=== PATIENT | male | born 1945 | race Caucasian/White ===

== ENCOUNTER → 2017-11-10 05:00 | Outpatient (REF) | payer MEDICARE, SELFPAY ==
[2017-10-13 10:51] VITALS: BMI 27.4
[2017-11-10 08:02] LABS: Hematocrit 31.1 % (40-54); Hemoglobin 9.4 g/dl (13.0-16.5); Mean Corp Hgb Conc 30.2 g/gl (32-36); Mean Corpuscular Hgb 23.9 pg (27.0-32.0); Mean Corpuscular Volume 78.9 fL (80-94); Mean Platelet Vol. 9.4 fl (6.2-12.0); Platelet Count 206 K/mm3 (150-450); RBC Distribution Width CV 16.3 % (11.6-14.6); RBC Distribution Width SD 46.7 fl (35.1-43.9); Red Blood Count 3.94 M/mm3 (4.6-6.2); Scan Indicated on CBC? Y/N NO; White Blood Count 7.3 K/mm3 (4.4-11.0)
[2017-11-10 08:12] LABS: Anion Gap 9 (5-15); BUN 33 mg/dL (7-18); BUN/Creat Ratio 19.3 RATIO (10-20); Calcium,Total 8.9 mg/dL (8.5-10.1); Chloride 105 mmol/L (98-107); Creatinine, Serum 1.71 mg/dL (0.70-1.30); EST Glomerular Filtration Rate 42 mL/min (>60); Est Glom Filt Rate - Afr Amer 51 mL/min (>60); Glucose 189 mg/dL (70-110); Potassium 4.4 mmol/L (3.5-5.1); Sodium Level 140 mmol/L (136-145)
== END ==
LOC: OLS.WCC 05:00
PROVIDERS: Visit Provider Family Medicine
DX: I50.9 Heart failure, unspecified (principal); I10 Essential (primary) hypertension; Z79.899 Other long term (current) drug therapy
CPT/HCPCS: 36415; 80048; 85027

== ENCOUNTER → 2017-12-29 05:00 | Outpatient (REF) | payer MEDICARE, SELFPAY ==
[2017-10-13 10:51] VITALS: BMI 27.4
[2017-12-29 08:48] LABS: Hemoglobin 10.3 g/dl (13.0-16.5); Mean Corp Hgb Conc 32.2 g/gl (32-36); Mean Corpuscular Hgb 24.2 pg (27.0-32.0); Mean Corpuscular Volume 75.1 fL (80-94); Mean Platelet Vol. 10.2 fl (6.2-12.0); Platelet Count 198 K/mm3 (150-450); RBC Distribution Width CV 15.7 % (11.6-14.6); RBC Distribution Width SD 41.8 fl (35.1-43.9); Red Blood Count 4.26 M/mm3 (4.6-6.2)
[2017-12-29 08:53] LABS: Anion Gap 10 (5-15); BUN 40 mg/dL (7-18); BUN/Creat Ratio 20.8 RATIO (10-20); Calcium,Total 9.5 mg/dL (8.5-10.1); Chloride 100 mmol/L (98-107); Cholesterol 137 mg/dL (200); Creatinine, Serum 1.92 mg/dL (0.70-1.30); EST Glomerular Filtration Rate 37 mL/min (>60); Est Glom Filt Rate - Afr Amer 44 mL/min (>60); Glucose 260 mg/dL (74-106); High Density Lipoprotein 28 mg/dL; Potassium 4.4 mmol/L (3.5-5.1); Sodium Level 136 mmol/L (136-145); Triglycerides 243 mg/dL; Very Low Density Lipoprotein 49 mg/dL (5-40)
[2017-12-29 08:56] LABS: Scan Indicated on CBC? Y/N NO
[2017-12-29 09:10] LABS: Hemoglobin A1c 8.4 % (4.2-6.3)
== END ==
LOC: OLS.WCC 05:00
PROVIDERS: Visit Provider Family Medicine
DX: I11.0 Hypertensive heart disease with heart failure (principal); I50.9 Heart failure, unspecified; E11.9 Type 2 diabetes mellitus without complications; E78.5 Hyperlipidemia, unspecified; Z79.899 Other long term (current) drug therapy
CPT/HCPCS: 36415; 80048; 80061; 83036; 85027

== ENCOUNTER 2018-01-07 14:30 | Outpatient (RCR) | payer MEDICARE, SELFPAY ==
[2017-10-13 10:51] VITALS: BMI 27.4
--- NOTE | 2017-12-08 10:50 | HP.PTEVAL_ITS ---
Patient's Visit Information Arnel Becker is a 72 year old M referred to Physical Therapy by Out of Town Doctor PAULINA with a diagnosis of CVA /WEAKNESS. Date of Evaluation: 12/08/17 Physical Therapist: Yinka Carvalho PT, - Visit Plan Frequency: 2x /Week Duration: 4 Weeks Plan: progressive balance activities,conditioning ,strength ,BLE strengthening - Subjective Subjective: This 72 y/o male presents to physical therapy with with CVA and weakness. Patient had CVA which affected peripheral vision. CVA Jul 2017. Patient had min deficicits in extremties. Patient currently is living at [facility]. Meals provided Incependant with ADL'S except assist with shower ,dress Indepndant. Denies paratrhesia/tingling. No falls.Living situation one level.No inpatient Rehab. Patient also has ho of CVA. SOCAIL: single. VOCATION: retired. HOME SITUATION: assisted living - Objective POSTURE: mild foward pposturwe. GAIT: receprocal pattern slow cadance miold unsteady. NEURO: reflexes achilles,patella tendon1/3. DYNAMIC BALANCE: good-. MMT: quad/hams/hip flexion/abductiion 4-/5/ankle 4/5. FLEXABLITY: hams min tight. SLS- min assist. STAIRS: ascend/descend 12 steps with rails one step at a time - Balance Scores Functional Gait Assessment Score: 17 % Disability: 43.3400 CATSIB Score (Max score 120 seconds): 60 - Goals Goal 1:: Independant with HEP Goal Time Frame: 4-6 Weeks Goal 2:: Improve BLE strength 4/5 to improve function and stairs Goal Time Frame: 4-6 Weeks Goal 3:: Patient improve dynamic balance to good. Goal Time Frame: 4-6 Weeks Goal 4:: Patient improve functional gait assessment score to 20 . Goal Time Frame: 4-6 Weeks Goal 5:: Patient to improve CATSIB score to 80 Goal Time Frame: 4-6 Weeks - Rehabilitation Potential Physical Therapy Diagnosis: This patient had CVA with impairments with weakness and decrease balane along with decrease endurance with activity ADL'S thus benifit from skilled PT Rehabilitation Potential: Good - Anticipated Interventions Patient/Client Instruction: Educate patient on: Condition, Plan of Care For the Purpose of:: To decrease pain, To improve muscle performance and motor function, To improve ability to perform ADL's, To increase tolerance to activity /condition/position, To improve ability of physical actions for home/community/ work/leisure, To improve gait and locomotor functions, To improve endurance, To improve balance, To improve safety with gait, To improve ability to perform tasks related to life management Therapeutic Exercise to Include: Strength training, Endurance training, Balance training, Coordination, Gait and locomotor training For the Purpose of:: To improve muscle performance and motor function, To improve ability to perform ADL's, To increase tolerance to activity/condition/ position, To improve performance and independence with ADL's, To improve ability of physical actions for home/community/work/leisure, To improve gait and locomotor functions, To improve endurance, To improve balance, To improve safety with gait, To improve ability to perform tasks related to life management Thank you for the opportunity to evaluate your patient. For Medicare and Medicare HMO plans, please review the plan of care and approve it. It will need to be FAXED BACK to us at [phone] for Medicare purposes. Please let me know if there are questions or concerns regarding this plan of care. Physician Signature: Date:
--- NOTE | 2018-01-07 14:58 | HP.PTDCSUM ---
HP - PT D/C Summary It has been my pleasure to treat Arnel Becker under orders from PAULINA Jackson for the diagnosis of CVA /WEAKNESS for a total of 7 visit(s). Discharge Date: 01/07/18 Please see the following information for a summary of their discharge status. - Subjective Subjective: Patient has fallen.Doing better overall. - Overall Improvement % Improvement: 50 - Objective Objective/Function: POSTURE: mild foward posture. GAIT: reciprocal pattern mild foward posture. MMT: QUADS/HAMS /HIP /ANKLE 4/5. BALANCE: good- - Goals Goal 1:: Independant with HEP Goal Progress: Goal Met Goal 2:: Improve BLE strength 4/5 to improve function and stairs Goal Progress: Progressing Goal 3:: Patient improve dynamic balance to good. Goal Progress: Goal Met Goal 4:: Patient improve functional gait assessment score to 20 . Goal 5:: Patient to improve CATSIB score to 80 Goal Progress: Goal Met - Plan Plan: D/C - D/C Information If there are questions or concerns regarding this patient's physical therapy, please feel free to call me at [phone]. Thank you for the referral of this patient. Sincerely, Yinka Carvalho, PT,
== END 2018-01-07 19:00 | disposition home or self-care (01) ==
LOC: PT 14:30
PROVIDERS: Family Provider Family Medicine; PCP Family Medicine; Visit Provider Family Medicine
DX: Z86.73 Personal history of transient ischemic attack (TIA), and cerebral infarction without residual deficits (principal); R53.1 Weakness
CPT/HCPCS: 97110; 97162; 97530

== ENCOUNTER → 2018-01-26 04:00 | Outpatient (REF) | payer MEDICARE, SELFPAY ==
[2017-10-13 10:51] VITALS: BMI 27.4
[2018-01-26 08:24] LABS: Hematocrit 33.2 % (40-54); Hemoglobin 10.3 g/dl (13.0-16.5); Mean Corpuscular Hgb 23.7 pg (27.0-32.0); Mean Corpuscular Volume 76.5 fL (80-94); Mean Platelet Vol. 9.5 fl (6.2-12.0); Platelet Count 166 K/mm3 (150-450); RBC Distribution Width CV 16.1 % (11.6-14.6); Red Blood Count 4.34 M/mm3 (4.6-6.2); White Blood Count 4.6 K/mm3 (4.4-11.0)
[2018-01-26 08:27] LABS: Scan Indicated on CBC? Y/N NO
[2018-01-26 08:45] LABS: Anion Gap 9 (5-15); BUN 48 mg/dL (7-18); BUN/Creat Ratio 21.3 RATIO (10-20); Calcium,Total 9.4 mg/dL (8.5-10.1); Chloride 103 mmol/L (98-107); Creatinine, Serum 2.25 mg/dL (0.70-1.30); EST Glomerular Filtration Rate 31 mL/min (>60); Est Glom Filt Rate - Afr Amer 37 mL/min (>60); Glucose 382 mg/dL (74-106); Potassium 5.1 mmol/L (3.5-5.1); Sodium Level 140 mmol/L (136-145)
== END ==
LOC: OLS.WCC 04:00
PROVIDERS: Visit Provider Family Medicine
DX: I50.9 Heart failure, unspecified (principal); E11.9 Type 2 diabetes mellitus without complications; Z79.899 Other long term (current) drug therapy
CPT/HCPCS: 36415; 80048; 85027

== ENCOUNTER → 2018-02-23 05:00 | Outpatient (REF) | payer MEDICARE, SELFPAY ==
[2017-10-13 10:51] VITALS: BMI 27.4
[2018-02-23 10:02] LABS: Mean Corp Hgb Conc 32.3 g/gl (32-36); Mean Corpuscular Hgb 25.1 pg (27.0-32.0); Mean Corpuscular Volume 77.9 fL (80-94); Mean Platelet Vol. 10.4 fl (6.2-12.0); Platelet Count 158 K/mm3 (150-450); RBC Distribution Width CV 15.7 % (11.6-14.6); RBC Distribution Width SD 42.6 fl (35.1-43.9); Red Blood Count 3.98 M/mm3 (4.6-6.2); White Blood Count 5.3 K/mm3 (4.4-11.0)
[2018-02-23 10:07] LABS: Scan Indicated on CBC? Y/N NO
[2018-02-23 10:12] LABS: Anion Gap 8 (5-15); BUN 53 mg/dL (7-18); BUN/Creat Ratio 23.6 RATIO (10-20); Calcium,Total 9.2 mg/dL (8.5-10.1); Chloride 103 mmol/L (98-107); Creatinine, Serum 2.25 mg/dL (0.70-1.30); EST Glomerular Filtration Rate 31 mL/min (>60); Est Glom Filt Rate - Afr Amer 37 mL/min (>60); Glucose 225 mg/dL (74-106); Sodium Level 139 mmol/L (136-145)
== END ==
LOC: OLS.WCC 05:00
PROVIDERS: Visit Provider Family Medicine
DX: D64.9 Anemia, unspecified (principal); I10 Essential (primary) hypertension; Z79.899 Other long term (current) drug therapy
CPT/HCPCS: 36415; 80048; 85027

== ENCOUNTER 2018-03-16 05:56 | Inpatient (IN) | payer MEDICARE, SELFPAY ==
[2017-10-13 10:51] VITALS: BMI 27.4
[2018-03-16] VITALS (46 sets, daily range): BP systolic 123–211; BP diastolic 64–98; PULSE 58–104; RESP 10–37; TEMP 36.3–36.8; O2SAT 74–100; BMI 29.0; BMI 29.1
--- NOTE | 2018-03-16 06:12 | RAD_ITS ---
STUDY: X-RAY CHEST REASON FOR EXAM: Male, 72 years old. Shortness of breath TECHNIQUE: 1 view COMPARISON: October 22, 2017 FINDINGS: Interval development of consolidative processes in the right upper lobe, right lower lobe and the left lower lobe. Median sternotomy wires are in place and there is evidence of CABG mild cardiomegaly Normal visualized thoracic spine. Normal visualized ribs, clavicles, and shoulders. There is no demonstrated abnormality of the visualized soft tissue structures of the upper abdomen. RAD/Chest 1 View (Portable) IMPRESSION: Bilateral pneumonias Electronically Signed: Kishan Dias, at 6:37 EDT Tel , Service support ,
--- NOTE | 2018-03-16 06:14 | EKG12_ITS ---
Test Reason : REPEAT Blood Pressure : / mmHG Vent. Rate : 090 BPM Atrial Rate : 090 BPM P-R Int : 212 ms QRS Dur : 108 ms QT Int : 408 ms P-R-T Axes : 036 037 113 degrees QTc Int : 499 ms Sinus rhythm with 1st degree A-V block Septal infarct , age undetermined ST/T wave abnormality: consider myocardial ischemia Abnormal ECG Confirmed by DA ZAPATA, THANIA ([id number]), communications editor KYRA TYLER ([id number]) on 03/19/2018 12:59:02 PM Referred By: JOELLE Confirmed By:THANIA ROBERSON MD
--- NOTE | 2018-03-16 06:16 | EKG12_ITS ---
Test Reason : SOB Blood Pressure : / mmHG Vent. Rate : 099 BPM Atrial Rate : 099 BPM P-R Int : 224 ms QRS Dur : 120 ms QT Int : 378 ms P-R-T Axes : 057 036 093 degrees QTc Int : 485 ms Sinus rhythm with 1st degree A-V block with occasional Premature ventricular complexes Septal infarct , age undetermined ST & T wave abnormality, consider lateral ischemia Abnormal ECG Confirmed by ROCIO ZAPATA, LIS ([id number]), video effects editor KYRA TYLER ([id number]) on 03/20/2018 12:59:03 PM Referred By: Confirmed By:LIS CHAN MD
--- NOTE | 2018-03-16 06:27 | CPS ---
decreased fio2 to 60%
[2018-03-16] MEDS: Nitroglycerin Oint 1 INCH PACKET TRANSDERM. (06:35)
[2018-03-16] MEDS: Morphine 4 MG/ML Syringe 2 MG IV (06:36)
[2018-03-16] MEDS: Aspirin 81 MG TAB.CHEW 324 MG PO (06:36)
[2018-03-16] MEDS: Albuterol 2.5 MG/3 ML VIAL.NEB. INHALATION ×3 (06:36→07:07)
[2018-03-16] MEDS: Furosemide 40 MG/4 ML Vial IV (06:36)
[2018-03-16] MEDS: Ipratropium/Albuterol Sulfate 3 ML AMPUL.NEB INHALATION ×3 (06:36→22:55)
[2018-03-16 06:37] LABS: Absolute Lymphocyte Count 1.52 X10^3/ul (0.83-4.51); Absolute Neutrophil Count 8.9 X10^3/uL (2.0-7.7); Basophil# 0.04 X10^3/uL; Basophil% 0.3 % (0-1); Eosinophil# 0.33 X10^3/uL; Eosinophils% 2.8 % (0-5); Hematocrit 32.9 % (40-54); Hemoglobin 10.9 g/dl (13.0-16.5); Lymphocyte # 1.52 X10^3/ul (4.0); Lymphocyte % 12.9 % (19-41); Mean Corp Hgb Conc 33.1 g/gl (32-36); Mean Corpuscular Hgb 26.5 pg (27.0-32.0); Mean Corpuscular Volume 79.9 fL (80-94); Mean Platelet Vol. 9.9 fl (6.2-12.0); Monocyte# 0.97 X10^3/uL; Monocyte% 8.2 % (0-10); Neutrophil % 75.5 % (47-70); Platelet Count 219 K/mm3 (150-450); RBC Distribution Width CV 16.2 % (11.6-14.6); RBC Distribution Width SD 46.1 fl (35.1-43.9); Red Blood Count 4.12 M/mm3 (4.6-6.2); White Blood Count 11.8 K/mm3 (4.4-11.0)
[2018-03-16 06:44] LABS: POSITIVE COUNT NO; POSITIVE DIFFERENTIAL NO; POSITIVE MORPHOLOGY NO
[2018-03-16 06:48] LABS: Anion Gap 9 (5-15); BUN 66 mg/dL (7-18); BUN/Creat Ratio 25.3 RATIO (10-20); Calcium,Total 9.1 mg/dL (8.5-10.1); Chloride 102 mmol/L (98-107); Creatinine, Serum 2.61 mg/dL (0.70-1.30); EST Glomerular Filtration Rate 26 mL/min (>60); Est Glom Filt Rate - Afr Amer 31 mL/min (>60); Estimated Creatinine Clearance 24.39 ml/min; Glucose 338 mg/dL (74-106); Potassium 4.5 mmol/L (3.5-5.1); Sodium Level 137 mmol/L (136-145)
--- NOTE | 2018-03-16 06:54 | ED.VISSUMM ---
- ER Visit Summary Date of Service: 03/16/18 Chief Complaint: [] Numbness of breath History of Present Illness: The patient is a 72 M [] complaining of shortness of breath that awoke him from sleep 2 hours prior to arrival. Patient presented with a pulse ox of 74% on room air which improved to the mid 80s on nonrebreather. Patient was in respiratory distress. Patient was immediately placed on BiPAP which improved his pulse ox to the low 90s. He is unable to provide significant history secondary to his acute presentation. Physical Examination: [] Afebrile. Pulse oximetry upon arrival was mid 70s. On BiPAP low 90s. Tachycardic in the 100 range. BP over 200 systolic upon arrival. 72-year-old male in moderate respiratory distress. Cardiovascular exam was tachycardic. Pulmonary exam revealed diminished breath sounds at the bases with slight expiratory wheeze. Abdomen is soft and nontender. No significant lower extremity edema. Test Results: [] CBC normal, BMP reveals BUN and creatinine of 66 and 2.61, respectively. Troponin indeterminate 0.11. BNP pending at the time of this dictation. Chest x-ray reveals bilateral infiltrates right greater than left. EKG shows ST depression in leads I, aVL and leads V5 and V6. With a rate of 90. First-degree heart block. Emergency Department Course and Treatment: [] Patient immediately evaluated and placed on BiPAP for respiratory distress with a pulse ox in the mid 70s. Chest x-ray reveals bilateral infiltrates. Patient was started on vancomycin and Zosyn intravenously. Blood cultures obtained and pending. EKG reveals slight ST depression in leads I, aVL and leads V5 and V6. Case discussed with hospitalist and technical services consultant and patient will be admitted to the ICU. Treatment Plan: [] Admit to ICU for intravenous antibiotics and respiratory support on BiPAP. Disposition: [] Admit, ICU, critical. Impression: [] Bilateral pulmonary infiltrates consistent with healthcare associated pneumonia Respiratory failure on BiPAP EKG changes Critical CARE time: 45 minutes This note was generated with ScriptRxation software. It may contain incorrect words, spelling, and punctuation that were not noted in review of the chart prior to signing ED Disposition - Plan for ED Patient: Chief Complaint: Shortness of Breath Referrals: Link Soriano MD [Primary Care Provider] -
--- NOTE | 2018-03-16 06:55 | PCM.HP.STD ---
Problem List (1) Acute kidney injury Status: Acute (2) Chronic kidney disease Status: Chronic Qualifiers: Chronic kidney disease stage: stage 3 (moderate) Qualified Code(s): N18.3 - Chronic kidney disease, stage 3 (moderate) (3) Alzheimer's disease Status: Chronic Qualifiers: Alzheimer's disease onset: unspecified onset Dementia behavioral disturbance: with behavioral disturbance Qualified Code(s): G30.9 - Alzheimer's disease, unspecified; F02.81 - Dementia in other diseases classified elsewhere with behavioral disturbance (4) Diabetes mellitus Status: Chronic Qualifiers: Diabetes mellitus type: type 2 Diabetes mellitus mcfp insulin use: with control integration engineer use Diabetes mellitus complication status: with unspecified complications Qualified Code(s): E11.8 - Type 2 diabetes mellitus with unspecified complications; Z79.4 - windows technical specialist (current) use of insulin (5) Encephalopathy Status: Acute (6) Hospital-acquired pneumonia Status: Acute (7) Ischemic cardiomyopathy Status: Chronic Comment: EF is 40% (8) Acute hypoxemic respiratory failure Status: Acute (9) H/O carotid endarterectomy Status: Chronic Comment: August 2017 [facility] (10) Esophageal reflux Status: Chronic Qualifiers: Esophagitis presence: esophagitis presence not specified Qualified Code(s): K21.9 - Gastro-esophageal reflux disease without esophagitis (11) HLD (hyperlipidemia) Status: Chronic Qualifiers: Hyperlipidemia type: unspecified Qualified Code(s): E78.5 - Hyperlipidemia, unspecified (12) HTN (hypertension) Status: Chronic Qualifiers: Hypertension type: essential hypertension Qualified Code(s): I10 - Essential (primary) hypertension (13) Coronary artery disease Status: Chronic Qualifiers: Coronary Disease-Associated Artery/Lesion type: unspecified vessel or lesion type [place] vs. transplanted heart: unspecified whether [place] or transplanted heart Associated angina: angina presence unspecified Qualified Code(s): I25.10 - Atherosclerotic heart disease of [place] coronary artery without angina pectoris Comment: status post CABG (14) H/O coronary artery bypass surgery Status: Chronic (15) Obstructive sleep apnea Status: Chronic Comment: Noncompliant with CPAP (16) CVA (cerebral vascular accident) Status: Chronic Qualifiers: CVA mechanism: unspecified Qualified Code(s): I63.9 - Cerebral infarction, unspecified (17) BPH (benign prostatic hypertrophy) Status: Chronic Qualifiers: Lower urinary tract symptom presence: unspecified whether lower urinary tract symptoms present Qualified Code(s): N40.0 - Benign prostatic hyperplasia without lower urinary tract symptoms (18) Iron deficiency anemia Status: Chronic Qualifiers: Iron deficiency anemia type: unspecified iron deficiency Qualified Code(s): D50.9 - Iron deficiency anemia, unspecified History of Present Illness Date of Admission: 03/16/18 Chief Complaint: Sent from [facility] for dyspnea x 2 hours, woke from sleep. The patient is a 72 y/o M w/ PMHx: Fe Deficiency Anemia, Hx GI Bleed w/ PUD, CKD stage III, Diabetes mellitus type II, Obesity, MAGDI non-compliant with CPAP, CAD s/p CABG and PCI (last 2015 [facility]) and [place], Chronic systolic CHF w/ Ischemic Cardiomyopathy (EF 40%), HTN, HLD, Alzheimer's disease, Carotid disease s/p CEA hx, BPH who presents to the [facility] ED on 03/16/18 with respiratory distress starting ~ 2 hours prior to presentation, noted to have awoken him from sleep with 74% oxygenation noted per EMS. Upon ED presentation patient immediately placed on BIPAP. Following improvement patient admitted to ongoing dyspnea for 2 days with cough, not mildly productive, no fevers or chills. He denies any recent increased weight gain or lower extremity edema in the ED work-up included T 97.3, HR 85, BP 197/84, RR 24, placed on BIPAP, 97% on 50%, CBC w/ WBC 11.8, Hgb 10.9, Plts 219 with L shift, BMP w/ BUN/Cr5 66/2.61, glucose 338, trop 0.11, CXR w/ BL infiltrates, R>L. BNP pending. Bld Cx x 2 obtained in the ED. In the ED patient administered vanc, zosyn, morphine, lasix 40 mg IV x 1, ASA, duoneb. Past Medical History Past Medical History (Chronic Problems): Chronic Problems Iron deficiency anemia (Chronic) Chronic kidney disease (Chronic) Alzheimer's disease (Chronic) Diabetes mellitus (Chronic) Ischemic cardiomyopathy (Chronic) EF is 40% Uncontrolled type 2 diabetes mellitus (Chronic) Coronary artery disease (Chronic) Peptic ulcer disease (Chronic) NSTEMI (non-ST elevated myocardial infarction) (Chronic) H/O carotid endarterectomy (Chronic) August 2017 [facility] Chronic hemorrhagic anemia (Chronic) Acute systolic CHF (congestive heart failure) (Chronic) Stage III chronic kidney disease (Chronic) Esophageal reflux (Chronic) HLD (hyperlipidemia) (Chronic) HTN (hypertension) (Chronic) Coronary artery disease (Chronic) status post CABG H/O coronary artery bypass surgery (Chronic) Obstructive sleep apnea (Chronic) Noncompliant with CPAP CVA (cerebral vascular accident) (Chronic) BPH (benign prostatic hypertrophy) (Chronic) History of PTCA (Chronic) last PTCA was in July 2016 at [facility] main [place] Allergies hydrocodone bitartrate [From Vicodin] Allergy (Verified 03/16/18 06:11) Anaphylaxis hydralazine Adverse Reaction (Verified 03/16/18 06:11) Shortness of breath Home Medications: Ambulatory Orders Medication Instructions Recorded Acetaminophen 2 tab PO Q8H PRN 03/16/18 Amlodipine Besylate [Norvasc] 5 mg PO DAILY 03/16/18 Aspirin [Aspirin, Baby] 81 mg PO DAILY@0800 03/16/18 Atorvastatin Calcium [Lipitor] 40 mg PO QHS 03/16/18 Carvedilol [Coreg] 6.25 mg PO BID 03/16/18 Clopidogrel Bisulfate [Clopidogrel] 75 mg PO DAILY 03/16/18 Donepezil HCl [Aricept] 5 mg PO QHS 03/16/18 Furosemide [Lasix] 40 mg PO BID 03/16/18 Insulin Detemir [Levemir] 40 unit SQ BID 03/16/18 Insulin Lispro [Humalog] 16 unit SQ TIDCM 03/16/18 Iron Polysaccharide Complex 150 mg PO TIDCM 03/16/18 [Ferrex 150] Isosorbide Mononitrate [Isosorbide 30 mg PO DAILY 03/16/18 Mononitrate ER] Magnesium Oxide [Mag-Ox 400] 400 mg PO DAILY 03/16/18 Nitroglycerin [Nitrostat] 0.4 mg SUBLINGUAL Q5M PRN 03/16/18 [place]-3 Acid Ethyl Esters 2 cap PO BID 03/16/18 Pantoprazole Sodium [Protonix] 40 mg PO DAILY 03/16/18 Polyethylene Glycol 3350 [Miralax] 17 gm PO DAILY 03/16/18 Senna/Docusate Sodium [Senokot-S, 1 tablet PO BID 03/16/18 Debbie-Colace] Surgical History: coronary bypass surgery, - - Back surgery. Carotid endarterectomy 06/2017. Psychiatric History: No pertinent psych hx Lives: [facility] Smoking Status: Former smoker Tobacco Use: Non-smoker Alcohol: None Drugs: None - *Family History Sibling History Items: Diabetes, Heart Disease Maternal History Items: Dementia, No pertinent history, - - His mother in her 70s of a stroke Paternal History Items: Dementia, Heart Disease - His father at the age of 56 of a myocardial infarction Review of Systems Constitutional: Reports: Malaise, Weakness, Fatigue. Denies: Chills, Fever, Weight Change HEENT: Denies: Head Aches, Sinus Congestion, Sinus Drainage Cardiovascular: Denies: Chest Pain, Palpitations Respiratory: Reports: Cough, Shortness of Breath, Shortness of breath at rest, Shortness of breath upon exertion. Denies: Sputum production, Wheezing Gastrointestinal: Denies: Abdominal Pain, Nausea, Vomiting Genitourinary: Denies: Dysuria Musculoskeletal: Denies: Joint Pain, Joint Tenderness Skin: Reports: Skin Changes. Denies: Rash, Wounds Neurological: Denies: Numbness, Tingling, Focal weakness Psychiatric: Denies: Anxiety, Depression, Homicidal Ideations, Suicidal Ideations Hematologic/ Lymphatic: Reports: Anemia, Easy Bruising, Easy Bleeding VTE Information - Inpt Only VTE Present on Admission: No VTE Mechan Device Prophylaxis: SCD's VTE Pharm Prophylaxis ordered?: Yes Subjective: Seated upright in the ED bed, fatigued appearance, notes feeling improved since initial presentation, more alert. Objective: Physical Examination: General: awake, alert now following BIPAP placement, oriented to self, place, recent events, cooperative, seated upright in the ED bed, improved, BIPAP in place, able to talk. Skin: normal color, turgor, no icterus, cyanosis. HEENT: AT/NC, EOMI, PERRLA, dry MM, no carotid bruits or JVD noted. Lungs: Severely diminished BS BL, > bases, >R<L, BIPAP in place, able to talk some, still some accessory muscle usage, improving, no wheezing, no crackles or rales. Heart: Regular rate and rhythm; no gallop, rub audible. Abdomen: soft, obese, NTTP, ND, normal BS, no HSM. Extremities: no cyanosis, clubbing, no marked LE edema. Neurological: awake, alert now following BIPAP placement, oriented to self, place, recent events, cooperative, seated upright in the ED bed, improved, BIPAP in place, able to talk, pupils equally reactive to light and accomodation; cranial nerves II-XII grossly normal, moving all 4 extremities but strength severely globally decreased secondary to acute presentation. Psychiatric: affect appears fatigued, flat, no acute evidence of depressive or anxiety feelings. - Physical Exam Vital Signs Temp Pulse Resp BP Pulse Ox 97.3 F L 95 31 H 197/84 H 95 03/16/18 05:59 03/16/18 06:35 03/16/18 06:10 03/16/18 06:35 03/16/18 06:26 Oxygen Flow Rate (L/min) 15 Oxygen Delivery Method Bi-pap Weight: 197 lb 12.074 oz Body Mass Index (BMI) 30.0 Finger Stick Blood Glucose 500 Laboratory Tests Past 24 Hrs 03/16/18 03/16/18 03/16/18 06:22 06:22 06:22 WBC 11.8 H RBC 4.12 L Hgb 10.9 L Hct 32.9 L MCV 79.9 L MCH 26.5 L MCHC 33.1 RDW 16.2 H RDW Differential 46.1 H Plt Count 219 MPV 9.9 Immature Gran % (Auto) 0.300 Neut % (Auto) 75.5 H Lymph % (Auto) 12.9 L [place] % (Auto) 8.2 Eos % (Auto) 2.8 Baso % (Auto) 0.3 Absolute Neuts (auto) 8.9 H Absolute Lymphs (auto) 1.52 Total Counted Not Reportable Sodium 137 Potassium 4.5 Chloride 102 Carbon Dioxide 26.0 Anion Gap 9 BUN 66 H Creatinine 2.61 H Estim Creat Clear Calc 24.39 Est GFR (MDRD) Af Amer 31 L Est GFR (MDRD) Non-Af 26 L BUN/Creatinine Ratio 25.3 H Glucose 338 H Calcium 9.1 Troponin I 0.11 H B-Natriuretic Peptide Pending Assessment/Plan The patient is a 72 y/o M w/ PMHx: Fe Deficiency Anemia, Hx GI Bleed w/ PUD, CKD stage III, Diabetes mellitus type II, Obesity, MAGDI non-compliant with CPAP, CAD s/p CABG and PCI (last 2016 [facility]) and [place], Chronic systolic CHF w/ Ischemic Cardiomyopathy (EF 40%), HTN, HLD, Alzheimer's disease, Carotid disease s/p CEA hx, BPH who presents to the [facility] ED on 03/16/18 with acutely worsened respiratory distress starting ~ 2 hours prior to presentation, noted to have awoken him from sleep with 74% oxygenation noted per EMS, with 2 day history of dyspnea, cough. (1) Acute Hypoxic Respiratory Failure secondary to HCAP Pneumonia: CXR in the ED w/ interval development consolidative process right upper lobe, right lower lobe and left lower lobe. Admission CBC w/ WBC 11.8 with left shift. Will admit to the ICU, maintain on BIPAP with wean to NC as able, continue ATC duonebs, PRN albuterol, maintained on IV Zosyn and Vancomycin pending MRSA swab, HOB, IS parameters w/ pending sputum cultures and urine antigens, respiratory viral panel. Bld cx x 2 obtained in the ED. (2) Acute kidney injury: Secondary to presentation #1. Admission BUN/Cr 66/2.61, prior baseline creatinine noted to be 1.9-2.2. Will gently hydrate given CHF history, hold nephrotoxic medications as able, if no improvement would plan FeNa assessment. (3) Indeterminate cardiac enzyme: Likely secondary to #1, #2, EKG in ED without acute evidence of ischemia, CXR w/ bilateral infiltrates as noted, initial trop 0.11. Will maintain on a monitored bed to assure no acute myocardial infarction with serial cardiac enzymes and EKGs. ASA, NG, morphine. (4) Encephalopathy: Multifactorial, secondary to #1, #2, #3, improving in the ED on BIPAP. (5) Chronic systolic CHF w/ Ischemic Cardiomyopathy: Does not appear to be decompensated, CXR without marked congestion, examination not marked. Noted last EF 40%, given TOM will hold lasix, continue asa, plavix, statin, BB, not on ACEI with CKD. (6) Diabetes mellitus type II: Hold oral home regimen, continue home insulin regimen, allow ADA diet once clinically improved, accu checks w/ ISS. (7) CAD: s/p [place]/PCI/CABG, follows w/ Dr. Jernigan. Will continue home regimen asa, plavix, statin, BB. (8) Hypertension: Continue home regimen including Norvasc, Coreg, isosorbide, temporarily hold lasix, hold parameters in place, PRN hydralazine. (9) Hyperlipidemia: Continue home statin regimen. (10) Chronic Fe Deficiency Anemia, Hx PUD w/ GI bleed: Admission Hgb 10.9, stable from December,. (11) Alzheimer's Dementia with unclear behavioral disturbance: Not on regimen, at [facility], frequent orientation. (12) Carotid Disease: s/p CEA history. (13) GERD: PPI. (14) DVT prophylaxis: SCDs, heparin w/ close monitoring. (15) CODE status: Discussed CODE status at length including difference between FULL code, DNR-CCA and DNR-CC status. Following discussions about the differences in these status, confirmed continuation of current status noted DNR-CCA, no intubation status. Advanced Care Planning Face to Face Time: 17 minutes. Code Visit Inpatient E&M: 17922 Init Hosp L3 Procedures: 96359 Advncd Care Plan 30 Min
--- NOTE | 2018-03-16 06:57 | ED.DCSUM_ITS ---
- ER Visit Summary Date of Service: 03/16/18 Chief Complaint: [] Numbness of breath History of Present Illness: The patient is a 72 M [] complaining of shortness of breath that awoke him from sleep 2 hours prior to arrival. Patient presented with a pulse ox of 74% on room air which improved to the mid 80s on nonrebreather. Patient was in respiratory distress. Patient was immediately placed on BiPAP which improved his pulse ox to the low 90s. He is unable to provide significant history secondary to his acute presentation. Physical Examination: [] Afebrile. Pulse oximetry upon arrival was mid 70s. On BiPAP low 90s. Tachycardic in the 100 range. BP over 200 systolic upon arrival. 72-year-old male in moderate respiratory distress. Cardiovascular exam was tachycardic. Pulmonary exam revealed diminished breath sounds at the bases with slight expiratory wheeze. Abdomen is soft and nontender. No significant lower extremity edema. Test Results: [] CBC normal, BMP reveals BUN and creatinine of 66 and 2.61, respectively. Troponin indeterminate 0.11. BNP pending at the time of this dictation. Chest x-ray reveals bilateral infiltrates right greater than left. EKG shows ST depression in leads I, aVL and leads V5 and V6. With a rate of 90. First- degree heart block. Emergency Department Course and Treatment: [] Patient immediately evaluated and placed on BiPAP for respiratory distress with a pulse ox in the mid 70s. Chest x-ray reveals bilateral infiltrates. Patient was started on vancomycin and Zosyn intravenously. Blood cultures obtained and pending. EKG reveals slight ST depression in leads I, aVL and leads V5 and V6. Case discussed with hospitalist and coal shoveler and patient will be admitted to the ICU. Treatment Plan: [] Admit to ICU for intravenous antibiotics and respiratory support on BiPAP. Disposition: [] Admit, ICU, critical. Impression: [] Bilateral pulmonary infiltrates consistent with healthcare associated pneumonia Respiratory failure on BiPAP EKG changes Critical CARE time: 45 minutes This note was generated with [employer]lick[employer] software. It may contain incorrect words, spelling, and punctuation that were not noted in review of the chart prior to signing ED Disposition - Plan for ED Patient: Chief Complaint: Shortness of Breath Referrals: Link Soriano MD [Primary Care Provider] -
--- NOTE | 2018-03-16 07:20 | HP.PCM_ITS ---
Problem List (1) Acute kidney injury Status: Acute (2) Chronic kidney disease Status: Chronic Qualifiers: Chronic kidney disease stage: stage 3 (moderate) Qualified Code(s): N18.3 - Chronic kidney disease, stage 3 (moderate) (3) Alzheimer's disease Status: Chronic Qualifiers: Alzheimer's disease onset: unspecified onset Dementia behavioral disturbance: with behavioral disturbance Qualified Code(s): G30.9 - Alzheimer' s disease, unspecified; F02.81 - Dementia in other diseases classified elsewhere with behavioral disturbance (4) Diabetes mellitus Status: Chronic Qualifiers: Diabetes mellitus type: type 2 Diabetes mellitus assisted insulin use: with assisted use Diabetes mellitus complication status: with unspecified complications Qualified Code(s): E11.8 - Type 2 diabetes mellitus with unspecified complications; Z79.4 - snf (current) use of insulin (5) Encephalopathy Status: Acute (6) Hospital-acquired pneumonia Status: Acute (7) Ischemic cardiomyopathy Status: Chronic Comment: EF is 40% (8) Acute hypoxemic respiratory failure Status: Acute (9) H/O carotid endarterectomy Status: Chronic Comment: August 2017 [facility] (10) Esophageal reflux Status: Chronic Qualifiers: Esophagitis presence: esophagitis presence not specified Qualified Code(s) : K21.9 - Gastro-esophageal reflux disease without esophagitis (11) HLD (hyperlipidemia) Status: Chronic Qualifiers: Hyperlipidemia type: unspecified Qualified Code(s): E78.5 - Hyperlipidemia , unspecified (12) HTN (hypertension) Status: Chronic Qualifiers: Hypertension type: essential hypertension Qualified Code(s): I10 - Essential (primary) hypertension (13) Coronary artery disease Status: Chronic Qualifiers: Coronary Disease-Associated Artery/Lesion type: unspecified vessel or lesion type [place] vs. transplanted heart: unspecified whether [place] or transplanted heart Associated angina: angina presence unspecified Qualified Code(s): I25.10 - Atherosclerotic heart disease of [place] coronary artery without angina pectoris Comment: status post CABG (14) H/O coronary artery bypass surgery Status: Chronic (15) Obstructive sleep apnea Status: Chronic Comment: Noncompliant with CPAP (16) CVA (cerebral vascular accident) Status: Chronic Qualifiers: CVA mechanism: unspecified Qualified Code(s): I63.9 - Cerebral infarction, unspecified (17) BPH (benign prostatic hypertrophy) Status: Chronic Qualifiers: Lower urinary tract symptom presence: unspecified whether lower urinary tract symptoms present Qualified Code(s): N40.0 - Benign prostatic hyperplasia without lower urinary tract symptoms (18) Iron deficiency anemia Status: Chronic Qualifiers: Iron deficiency anemia type: unspecified iron deficiency Qualified Code(s) : D50.9 - Iron deficiency anemia, unspecified History of Present Illness Date of Admission: 03/16/18 Chief Complaint: Sent from [facility] for dyspnea x 2 hours, woke from sleep. The patient is a 72 y/o M w/ PMHx: Fe Deficiency Anemia, Hx GI Bleed w/ PUD, CKD stage III, Diabetes mellitus type II, Obesity, MAGDI non-compliant with CPAP, CAD s/p CABG and PCI (last 2015 [facility]) and [place], Chronic systolic CHF w/ Ischemic Cardiomyopathy (EF 40%), HTN, HLD, Alzheimer's disease, Carotid disease s/p CEA hx, BPH who presents to the [facility] ED on 03/16/18 with respiratory distress starting ~ 2 hours prior to presentation, noted to have awoken him from sleep with 74% oxygenation noted per EMS. Upon ED presentation patient immediately placed on BIPAP. Following improvement patient admitted to ongoing dyspnea for 2 days with cough, not mildly productive, no fevers or chills. He denies any recent increased weight gain or lower extremity edema in the ED work- up included T 97.3, HR 85, BP 197/84, RR 24, placed on BIPAP, 97% on 50%, CBC w / WBC 11.8, Hgb 10.9, Plts 219 with L shift, BMP w/ BUN/Cr5 66/2.61, glucose 338 , trop 0.11, CXR w/ BL infiltrates, R>L. BNP pending. Bld Cx x 2 obtained in the ED. In the ED patient administered vanc, zosyn, morphine, lasix 40 mg IV x 1 , ASA, duoneb. Past Medical History Past Medical History (Chronic Problems): Chronic Problems Iron deficiency anemia (Chronic) Chronic kidney disease (Chronic) Alzheimer's disease (Chronic) Diabetes mellitus (Chronic) Ischemic cardiomyopathy (Chronic) EF is 40% Uncontrolled type 2 diabetes mellitus (Chronic) Coronary artery disease (Chronic) Peptic ulcer disease (Chronic) NSTEMI (non-ST elevated myocardial infarction) (Chronic) H/O carotid endarterectomy (Chronic) August 2017 [facility] Chronic hemorrhagic anemia (Chronic) Acute systolic CHF (congestive heart failure) (Chronic) Stage III chronic kidney disease (Chronic) Esophageal reflux (Chronic) HLD (hyperlipidemia) (Chronic) HTN (hypertension) (Chronic) Coronary artery disease (Chronic) status post CABG H/O coronary artery bypass surgery (Chronic) Obstructive sleep apnea (Chronic) Noncompliant with CPAP CVA (cerebral vascular accident) (Chronic) BPH (benign prostatic hypertrophy) (Chronic) History of PTCA (Chronic) last PTCA was in July 2016 at [facility] Allergies hydrocodone bitartrate [From Vicodin] Allergy (Verified 03/16/18 06:11) Anaphylaxis hydralazine Adverse Reaction (Verified 03/16/18 06:11) Shortness of breath Home Medications: Ambulatory Orders Medication Instructions Recorded Acetaminophen 2 tab PO Q8H PRN 03/16/18 Amlodipine Besylate [Norvasc] 5 mg PO DAILY 03/16/18 Aspirin [Aspirin, Baby] 81 mg PO DAILY@0800 03/16/18 Atorvastatin Calcium [Lipitor] 40 mg PO QHS 03/16/18 Carvedilol [Coreg] 6.25 mg PO BID 03/16/18 Clopidogrel Bisulfate [Clopidogrel] 75 mg PO DAILY 03/16/18 Donepezil HCl [Aricept] 5 mg PO QHS 03/16/18 Furosemide [Lasix] 40 mg PO BID 03/16/18 Insulin Detemir [Levemir] 40 unit SQ BID 03/16/18 Insulin Lispro [Humalog] 16 unit SQ TIDCM 03/16/18 Iron Polysaccharide Complex 150 mg PO TIDCM 03/16/18 [Ferrex 150] Isosorbide Mononitrate [Isosorbide 30 mg PO DAILY 03/16/18 Mononitrate ER] Magnesium Oxide [Mag-Ox 400] 400 mg PO DAILY 03/16/18 Nitroglycerin [Nitrostat] 0.4 mg SUBLINGUAL Q5M PRN 03/16/18 [place]-3 Acid Ethyl Esters 2 cap PO BID 03/16/18 Pantoprazole Sodium [Protonix] 40 mg PO DAILY 03/16/18 Polyethylene Glycol 3350 [Miralax] 17 gm PO DAILY 03/16/18 Senna/Docusate Sodium [Senokot-S, 1 tablet PO BID 03/16/18 Debbie-Colace] Surgical History: coronary bypass surgery, - - Back surgery. Carotid endarterectomy 06/2017. Psychiatric History: No pertinent psych hx Lives: Residential Smoking Status: Former smoker Tobacco Use: Non-smoker Alcohol: None Drugs: None - *Family History Sibling History Items: Diabetes, Heart Disease Maternal History Items: Dementia, No pertinent history, - - His mother in her 70s of a stroke Paternal History Items: Dementia, Heart Disease - His father at the age of 56 of a myocardial infarction Review of Systems Constitutional: Reports: Malaise, Weakness, Fatigue. Denies: Chills, Fever, Weight Change HEENT: Denies: Head Aches, Sinus Congestion, Sinus Drainage Cardiovascular: Denies: Chest Pain, Palpitations Respiratory: Reports: Cough, Shortness of Breath, Shortness of breath at rest, Shortness of breath upon exertion. Denies: Sputum production, Wheezing Gastrointestinal: Denies: Abdominal Pain, Nausea, Vomiting Genitourinary: Denies: Dysuria Musculoskeletal: Denies: Joint Pain, Joint Tenderness Skin: Reports: Skin Changes. Denies: Rash, Wounds Neurological: Denies: Numbness, Tingling, Focal weakness Psychiatric: Denies: Anxiety, Depression, Homicidal Ideations, Suicidal Ideations Hematologic/ Lymphatic: Reports: Anemia, Easy Bruising, Easy Bleeding VTE Information - Inpt Only VTE Present on Admission: No VTE Mechan Device Prophylaxis: SCD's VTE Pharm Prophylaxis ordered?: Yes Subjective: Seated upright in the ED bed, fatigued appearance, notes feeling improved since initial presentation, more alert. Objective: Physical Examination: General: awake, alert now following BIPAP placement, oriented to self, place, recent events, cooperative, seated upright in the ED bed, improved, BIPAP in place, able to talk. Skin: normal color, turgor, no icterus, cyanosis. HEENT: AT/NC, EOMI, PERRLA, dry MM, no carotid bruits or JVD noted. Lungs: Severely diminished BS BL, > bases, >R<L, BIPAP in place, able to talk some, still some accessory muscle usage, improving, no wheezing, no crackles or rales. Heart: Regular rate and rhythm; no gallop, rub audible. Abdomen: soft, obese, NTTP, ND, normal BS, no HSM. Extremities: no cyanosis, clubbing, no marked LE edema. Neurological: awake, alert now following BIPAP placement, oriented to self, place, recent events, cooperative, seated upright in the ED bed, improved, BIPAP in place, able to talk, pupils equally reactive to light and accomodation ; cranial nerves II-XII grossly normal, moving all 4 extremities but strength severely globally decreased secondary to acute presentation. Psychiatric: affect appears fatigued, flat, no acute evidence of depressive or anxiety feelings. - Physical Exam Vital Signs Temp Pulse Resp BP Pulse Ox 97.3 F L 95 31 H 197/84 H 95 03/16/18 05:59 03/16/18 06:35 03/16/18 06:10 03/16/18 06:35 03/16/18 06:26 Oxygen Flow Rate (L/min) 15 Oxygen Delivery Method Bi-pap Weight: 197 lb 12.074 oz Body Mass Index (BMI) 30.0 Finger Stick Blood Glucose 500 Laboratory Tests Past 24 Hrs 03/16/18 03/16/18 03/16/18 06:22 06:22 06:22 WBC 11.8 H RBC 4.12 L Hgb 10.9 L Hct 32.9 L MCV 79.9 L MCH 26.5 L MCHC 33.1 RDW 16.2 H RDW Differential 46.1 H Plt Count 219 MPV 9.9 Immature Gran % (Auto) 0.300 Neut % (Auto) 75.5 H Lymph % (Auto) 12.9 L [place] % (Auto) 8.2 Eos % (Auto) 2.8 Baso % (Auto) 0.3 Absolute Neuts (auto) 8.9 H Absolute Lymphs (auto) 1.52 Total Counted Not Reportable Sodium 137 Potassium 4.5 Chloride 102 Carbon Dioxide 26.0 Anion Gap 9 BUN 66 H Creatinine 2.61 H Estim Creat Clear Calc 24.39 Est GFR (MDRD) Af Amer 31 L Est GFR (MDRD) Non-Af 26 L BUN/Creatinine Ratio 25.3 H Glucose 338 H Calcium 9.1 Troponin I 0.11 H B-Natriuretic Peptide Pending Assessment/Plan The patient is a 72 y/o M w/ PMHx: Fe Deficiency Anemia, Hx GI Bleed w/ PUD, CKD stage III, Diabetes mellitus type II, Obesity, MAGDI non-compliant with CPAP, CAD s/p CABG and PCI (last 2016 [facility]) and [place], Chronic systolic CHF w/ Ischemic Cardiomyopathy (EF 40%), HTN, HLD, Alzheimer's disease, Carotid disease s/p CEA hx, BPH who presents to the [facility] ED on 03/16/18 with acutely worsened respiratory distress starting ~ 2 hours prior to presentation, noted to have awoken him from sleep with 74% oxygenation noted per EMS, with 2 day history of dyspnea, cough. (1) Acute Hypoxic Respiratory Failure secondary to HCAP Pneumonia: CXR in the ED w/ interval development consolidative process right upper lobe, right lower lobe and left lower lobe. Admission CBC w/ WBC 11.8 with left shift. Will admit to the ICU, maintain on BIPAP with wean to NC as able, continue ATC duonebs, PRN albuterol, maintained on IV Zosyn and Vancomycin pending MRSA swab, HOB, IS parameters w/ pending sputum cultures and urine antigens, respiratory viral panel. Bld cx x 2 obtained in the ED. (2) Acute kidney injury: Secondary to presentation #1. Admission BUN/Cr 66/2.61 , prior baseline creatinine noted to be 1.9-2.2. Will gently hydrate given CHF history, hold nephrotoxic medications as able, if no improvement would plan FeNa assessment. (3) Indeterminate cardiac enzyme: Likely secondary to #1, #2, EKG in ED without acute evidence of ischemia, CXR w/ bilateral infiltrates as noted, initial trop 0.11. Will maintain on a monitored bed to assure no acute myocardial infarction with serial cardiac enzymes and EKGs. ASA, NG, morphine. (4) Encephalopathy: Multifactorial, secondary to #1, #2, #3, improving in the ED on BIPAP. (5) Chronic systolic CHF w/ Ischemic Cardiomyopathy: Does not appear to be decompensated, CXR without marked congestion, examination not marked. Noted last EF 40%, given TOM will hold lasix, continue asa, plavix, statin, BB, not on ACEI with CKD. (6) Diabetes mellitus type II: Hold oral home regimen, continue home insulin regimen, allow ADA diet once clinically improved, accu checks w/ ISS. (7) CAD: s/p [place]/PCI/CABG, follows w/ Dr. Jernigan. Will continue home regimen asa, plavix, statin, BB. (8) Hypertension: Continue home regimen including Norvasc, Coreg, isosorbide, temporarily hold lasix, hold parameters in place, PRN hydralazine. (9) Hyperlipidemia: Continue home statin regimen. (10) Chronic Fe Deficiency Anemia, Hx PUD w/ GI bleed: Admission Hgb 10.9, stable from December,. (11) Alzheimer's Dementia with unclear behavioral disturbance: Not on regimen, at [facility], frequent orientation. (12) Carotid Disease: s/p CEA history. (13) GERD: PPI. (14) DVT prophylaxis: SCDs, heparin w/ close monitoring. (15) CODE status: Discussed CODE status at length including difference between FULL code, DNR-CCA and DNR-CC status. Following discussions about the differences in these status, confirmed continuation of current status noted DNR- CCA, no intubation status. Advanced Care Planning Face to Face Time: 17 minutes. Code Visit Inpatient E&M: 93353 Init Hosp L3 Procedures: 61256 Advncd Care Plan 30 Min
--- NOTE | 2018-03-16 07:21 | CPS ---
decreased fio2 to 35%, and settings to 12/6, rn aware.
--- NOTE | 2018-03-16 07:50 | CON.PCM_ITS ---
Reason for Consult Date of Consultation: 03/16/18 Reason for Consultation: Acute respiratory failure History of Present Illness: The patient is a 72-year-old male, with a history as outlined below, who presented to the emergency department on March 16 with complaints of shortness of breath and hypoxia. The patient's dyspnea has progressed over the last couple days. He does have a mild nonproductive cough. The patient does have a history of obstructive sleep apnea, for which it was recommended that he be placed on bilevel therapy with a pressure setting of 15/11 cm of water with humidification. However, the patient is noncompliant with its use. He also has a history of coronary artery disease for which she has status post CABG. Surface echocardiogram dated August 2017 revealed a hypokinetic LV with an ejection fraction of 40%. Pulmonary artery systolic pressure was estimated to be 33 mmHg. Cardiac catheterization performed in September 2017 revealed evidence of coronary artery disease, for which the patient underwent successful drug-eluting stent placement to the proximal circumflex. On presentation to the emergency department, the patient was noted to be afebrile and significantly hypertensive with an initial blood pressure documented to be 211/98. The patient was tachypneic and hypoxic on room air. Laboratory evaluation revealed a mildly elevated white blood cell count to 12, 000. Chemistry profile was notable for acute on chronic renal insufficiency. Glucose was elevated to 338. Troponin was mildly elevated to 0.11. Plain film chest x-ray revealed evidence of a right lower lobe consolidative process. The patient was given aerosol treatments, Lasix and started on broad-spectrum antibiotics. The patient was also empirically placed on BiPAP therapy. He was then transferred to the medical intensive care unit for ongoing management. Past Medical History Past Medical History (Chronic Problems): Chronic Problems Iron deficiency anemia (Chronic) Chronic kidney disease (Chronic) Alzheimer's disease (Chronic) Diabetes mellitus (Chronic) Ischemic cardiomyopathy (Chronic) EF is 40% Uncontrolled type 2 diabetes mellitus (Chronic) Coronary artery disease (Chronic) Peptic ulcer disease (Chronic) NSTEMI (non-ST elevated myocardial infarction) (Chronic) H/O carotid endarterectomy (Chronic) August 2017 [facility] Chronic hemorrhagic anemia (Chronic) Acute systolic CHF (congestive heart failure) (Chronic) Stage III chronic kidney disease (Chronic) Esophageal reflux (Chronic) HLD (hyperlipidemia) (Chronic) HTN (hypertension) (Chronic) Coronary artery disease (Chronic) status post CABG H/O coronary artery bypass surgery (Chronic) Obstructive sleep apnea (Chronic) Noncompliant with CPAP CVA (cerebral vascular accident) (Chronic) BPH (benign prostatic hypertrophy) (Chronic) History of PTCA (Chronic) last PTCA was in July 2016 at [facility] Allergies hydrocodone bitartrate [From Vicodin] Allergy (Verified 03/16/18 06:11) Anaphylaxis hydralazine Adverse Reaction (Verified 03/16/18 06:11) Shortness of breath Home Medications: Ambulatory Orders Medication Instructions Recorded Acetaminophen 500 mg PO Q8H PRN PRN 03/16/18 Amlodipine Besylate [Norvasc] 5 mg PO DAILY 03/16/18 Aspirin [Aspirin, Baby] 81 mg PO DAILY@0800 03/16/18 Atorvastatin Calcium [Lipitor] 40 mg PO QHS 03/16/18 Carvedilol [Coreg] 6.25 mg PO BID 03/16/18 Clopidogrel Bisulfate [Clopidogrel] 75 mg PO DAILY 03/16/18 Donepezil HCl [Aricept] 5 mg PO QHS 03/16/18 Furosemide [Lasix] 40 mg PO BID 03/16/18 Insulin Detemir [Levemir] 40 unit SQ BID 03/16/18 Insulin Lispro [Humalog] 16 unit SQ TIDCM 03/16/18 Iron Polysaccharide Complex 150 mg PO TIDCM 03/16/18 [Ferrex 150] Isosorbide Mononitrate [Isosorbide 30 mg PO DAILY 03/16/18 Mononitrate ER] Magnesium Oxide [Mag-Ox 400] 400 mg PO DAILY 03/16/18 Nitroglycerin [Nitrostat] 0.4 mg SUBLINGUAL Q5M PRN 03/16/18 [place]-3 Acid Ethyl Esters 2 cap PO BID 03/16/18 Pantoprazole Sodium [Protonix] 40 mg PO DAILY 03/16/18 Polyethylene Glycol 3350 [Miralax] 17 gm PO DAILY 03/16/18 Senna/Docusate Sodium [Senokot-S, 1 tablet PO BID 03/16/18 Debbie-Colace] Surgical History: coronary bypass surgery, - - Back surgery. Carotid endarterectomy 06/2017. Psychiatric History: No pertinent psych hx Lives: Detention Smoking Status: Former smoker Tobacco Use: Non-smoker Alcohol: None Drugs: None - *Family History Sibling History Items: Diabetes, Heart Disease Maternal History Items: Dementia, No pertinent history, - - His mother in her 70s of a stroke Paternal History Items: Dementia, Heart Disease - His father at the age of 56 of a myocardial infarction Review of Systems Constitutional: Reports: Weakness, Fatigue Eyes: Denies: Blurred vision, Double vision HEENT: Denies: Head Aches, Sinus Congestion, Sinus Drainage Cardiovascular: Denies: Chest Pain, Palpitations Respiratory: Reports: Cough, Shortness of Breath. Denies: Sputum production Gastrointestinal: Denies: Abdominal Pain, Nausea, Vomiting Genitourinary: Denies: Dysuria Musculoskeletal: Denies: Joint Pain, Joint Tenderness Skin: Denies: Rash, Wounds Neurological: Denies: Numbness, Tingling, Focal weakness Psychiatric: Denies: Anxiety, Depression, Homicidal Ideations, Suicidal Ideations Hematologic/ Lymphatic: Reports: Anemia Objective: The patient's most recent lab work, culture data and imaging studies have all been personally reviewed. Strep and urine Legionella antigens were both negative. Blood cultures are currently pending. - Physical Exam General: Alert, Cooperative, No apparent distress, - - The patient's son-in-law is present at the bedside. HEENT: Atraumatic, PERRLA, Normocephalic Oral: Dry Mucosa Neck: Supple, No Nodes, Trachea Midline Lungs: No rhonchi, No wheeze, No rales, Diminished Cardiovascular: Regular rate, Regular Rhythm, Normal S1, Normal S2, No murmurs Abdomen: Bowel Sounds Present, Soft, Non Tender, Obese Extremities: No clubbing, No cyanosis, No edema Skin: No breakdown Musculoskeletal: No Muscle Wasting Lymphatic: No Cervical, Supraclavicular, or Inguinal Adenopathy Neurological: Neuro grossly intact Psych/Mental Status: Flat Affect Vital Signs Temp Pulse Resp BP Pulse Ox 97.3 F L 78 18 142/77 H 94 03/16/18 05:59 03/16/18 07:22 03/16/18 07:22 03/16/18 07:08 03/16/18 07:22 Labs (Last 48 Hours) 03/16/18 03/16/18 03/16/18 06:22 06:22 06:22 WBC 11.8 H RBC 4.12 L Hgb 10.9 L Hct 32.9 L MCV 79.9 L MCH 26.5 L MCHC 33.1 RDW 16.2 H RDW Differential 46.1 H Plt Count 219 MPV 9.9 Immature Gran % (Auto) 0.300 Neut % (Auto) 75.5 H Lymph % (Auto) 12.9 L [place] % (Auto) 8.2 Eos % (Auto) 2.8 Baso % (Auto) 0.3 Absolute Neuts (auto) 8.9 H Absolute Lymphs (auto) 1.52 Total Counted Not Reportable Sodium 137 Potassium 4.5 Chloride 102 Carbon Dioxide 26.0 Anion Gap 9 BUN 66 H Creatinine 2.61 H Estim Creat Clear Calc 24.39 Est GFR (MDRD) Af Amer 31 L Est GFR (MDRD) Non-Af 26 L BUN/Creatinine Ratio 25.3 H Glucose 338 H Calcium 9.1 Troponin I 0.11 H B-Natriuretic Peptide Pending Clinical Impression(s) from Imaging Studies Chest X-Ray 03/16/18 06:12 IMPRESSION: Bilateral pneumonias Electronically Signed: Kishan Dias, at 6:37 EDT Tel , Service support , Assessment/Plan RECOMMENDATIONS: 1. Continue broad-spectrum antibiotics, pending infectious workup. 2. Wean supplemental oxygen to maintain saturations at or above 90% 3. Discontinue continuous supplemental IV fluids 4. Continue home antihypertensive regimen 5. Continue Levemir and sliding scale insulin coverage 6. Trend troponins and consider obtaining cardiology consultation 7. Recommend empiric BiPAP utilization 15/11 cm of water nightly. 8. Perform bedside swallow evaluation once the patient's FiO2 requirement has decreased. 9. Continue subcu heparin for DVT prophylaxis. Mobilize patient as tolerated. IMPRESSIONS: 1. Acute hypoxemic respiratory failure secondary to healthcare associated pneumonia Continue broad-spectrum antibiotics, pending infectious workup. The patient has been weaned from noninvasive positive pressure ventilation. His supplemental oxygen will be weaned to maintain oxygen saturations at or above 90 %. Check full respiratory viral panel. Send sputum for culture. 2. Acute on chronic renal insufficiency Unclear etiology. Workup is currently underway. We will continue to monitor urine output. No indication for renal replacement therapy currently. 3. Troponin elevation/known coronary artery disease/chronic systolic heart failure/hypertension Potentially related to demand ischemia in the setting of #1. Continue to trend troponins. If up trending, recommend cardiology consultation. Continue outpatient antihypertensive regimen. 4. Personal history of obstructive sleep apnea The patient is noncompliant with the use of nocturnal noninvasive positive pressure ventilation. His last sleep study indicated a need for bilevel therapy at a pressure setting of 15/11 cm of water. Recommend empiric utilization while admitted to the hospital on a nightly basis. 5. Hyperlipidemia/iron deficiency anemia/GERD/Alzheimer's dementia/diabetes Complicates care, management, recovery and prognosis. Continue Levemir and sliding scale insulin coverage. Recommend physical therapy evaluation once medically stable. This note was generated with [employer] dictation software. It may contain incorrect words, spelling, and punctuation that were not noted in checking the note before signing. Code Visit Inpatient E&M: 21948 Init Hosp L3
[2018-03-16 09:07] LABS: BNP,B-Type NATRIURETIC PEPTIDE 375.7 pg/mL (0-100)
[2018-03-16 09:20] LABS: Magnesium 2.5 mg/dL (1.6-2.6); Phosphorus 4.8 mg/dL (2.5-4.9)
--- NOTE | 2018-03-16 10:02 | CASEMGMT ---
ASHLEY is familiar with patient from past admissions. He is from [facility]. ASHLEY faxed information to Jessica at [facility]. ASHLEY also called her and she confirmed he is still in [place]. She said they have male beds if he would need one. Plan: [facility] [place] vs SN[facility]
[2018-03-16 10:36] LABS: M R Staph aureus DNA By PCR Negative (Negative); Probe Check PASS; Specimen Processing Control PASS
[2018-03-16] MEDS: Iron Polysaccharide Complex 150 MG CAPSULE PO ×2 (11:09→19:17)
[2018-03-16] MEDS: Aspirin 81 MG TAB.CHEW PO (11:09)
[2018-03-16] MEDS: Heparin Injection 5,000 UNITS/ML Syringe 5000 UNITS SC (11:10)
[2018-03-16] MEDS: Carvedilol 6.25 MG Tablet PO ×2 (11:10→21:22)
[2018-03-16] MEDS: CHLORHEXIDINE GLUC 2% CLOTH 1 EACH TOWELETTE TOPICAL (11:10)
[2018-03-16] MEDS: Polyethylene Glycol 3350 17 GM PACKET PO (11:10)
[2018-03-16] MEDS: Isosorbide Mononitrate 30 MG Tablet PO (11:10)
[2018-03-16] MEDS: Magnesium Oxide 400 MG Tablet PO (11:10)
[2018-03-16] MEDS: guaiFENesin 1,200 MG Tablet 1200 MG PO ×2 (11:11→21:22)
[2018-03-16] MEDS: Pantoprazole Sodium 40 MG Tablet PO (11:11)
[2018-03-16] MEDS: Clopidogrel Bisulfate 75 MG Tablet PO (11:11)
[2018-03-16] MEDS: Senna/Docusate Sodium 1 Tablet PO ×2 (11:11→21:23)
[2018-03-16] MEDS: amLODIPine 5 MG Tablet PO (11:11)
[2018-03-16] MEDS: 0.9% NaCl Peripheral Flush Adult/Peds IV ×2 (11:14→15:05)
[2018-03-16] MEDS: 0.9% Normal Saline 1,000 ML 100 ML IV (11:17)
[2018-03-16 11:20] LABS: Bedside Glucose 361 mg/dL (70-110)
[2018-03-16] MEDS: Acetaminophen 325 MG Tablet 650 MG PO (15:05)
[2018-03-16] MEDS: Piperacil/Tazobactam 3.375 GM/50 ML ML IV ×2 (15:07→21:21)
--- NOTE | 2018-03-16 15:37 | ECHOD_ITS ---
Reason For Study: CAD/ASHD Procedure This was a 2D Doppler, Color Flow transthoracic echocardiogram. The study was technically difficult. Exam performed in chair. Exam performed portable in ICU/CCU. Left Ventricle Normal LV size. The estimated ejection fraction is 40 %. Moderate segmental systolic dysfunction (see wall motion). Transmitral diastolic flow velocities suggest moderate (stage 2) diastolic dysfunction (pseudonormal pattern). There are regional wall motion abnormalities as specified. Right Ventricle Normal RV size. Normal systolic function. Atria The left atrium is mildly enlarged. Normal right atrium. Mitral Valve Normal mitral valve. Moderate (2+) eccentric mitral valve insufficiency. Tricuspid Valve Normal tricuspid valve. Mild (1+) tricuspid valve insufficiency. Pulmonary artery systolic pressure is 29 mmHg. Aortic Valve Trisinus/trileaflet aortic valve. Mild diffuse aortic valve thickening. Mild (1+) eccentric aortic valve insufficiency. Pulmonic Valve Normal pulmonic valve. Great Vessels Normal aortic root. The pulmonary artery is normal size. Normal inferior vena cava. Pericardium/Pleural No pericardial effusion. MMode/2D Measurements & Calculations LVIDd: 5.0 cm IVSd: 1.4 cm LVOT diam: 2.1 cm LVIDs: 3.9 cm LVPWd: 1.2 cm LVOT area: 3.6 cm2 RVDd: 3.5 cm FS: 21.1 % Ao root diam: 3.4 cm LAV(MOD-bp): 69.8 ml LA A4 area: 20.4 cm2 LA dimension: 5.0 cm LAV(MOD-bp) Indexed: 34.5 ml/m2 LAV(MOD-sp2): 65.4 ml LAV(MOD-sp4): 65.2 ml RA A4 area: 13.1 cm2 Doppler Measurements & Calculations MV E max jone: 132.1 cm/sec Lat Peak E' Jone: 5.3 cm/sec Med Peak E' Jone: 5.0 cm/sec MV A max jone: 71.1 cm/sec E/E' lat: 24.8 E/E' med: 26.5 MV E/A: 1.9 Ao V2 max: 248.7 cm/sec AI max jone: 319.1 cm/sec LV V1 max: 110.0 cm/sec Ao max P.8 mmHg AI max P.0 mmHg LV V1 max P.8 mmHg Ao V2 mean: 168.3 cm/sec AI dec slope: 211.5 cm/sec2 LV V1 mean P.5 mmHg Ao mean P.6 mmHg AI P1/2t: 442.0 msec LV V1 mean: 74.9 cm/sec Ao V2 VTI: 48.4 cm LV V1 VTI: 22.4 cm SENDY(I,D): 1.6 cm2 SENDY(V,D): 1.6 cm2 MR max jone: 551.4 cm/sec SV(LVOT): 79.8 ml PA V2 max: 124.0 cm/sec MR max P.6 mmHg PI end-d jone: 168.5 cm/sec TR max jone: 248.9 cm/sec TR max P.8 mmHg Interpretation Summary Normal LV size. The estimated ejection fraction is 40 %. Moderate segmental systolic dysfunction (see wall motion). Transmitral diastolic flow velocities suggest moderate (stage 2) diastolic dysfunction (pseudonormal pattern). Moderate (2+) eccentric mitral valve insufficiency. Mild (1+) tricuspid valve insufficiency. Compared to prior study, there is no significant change. Ordering Physician: Mady Minor Referring Physician: Link Soriano Performed By: Yvonne Conde, AUBREE, RVT
--- NOTE | 2018-03-16 16:20 | CPS ---
PT PLACED ON BIPAP SETTINGS FROM LAST TITRATION STUDY PER DR. FERREIRA. 15/11 CMH2O. NURSING NOTIFIED OF CHANGES.
[2018-03-16] MEDS: Enoxaparin 80 MG/0.8 ML Syringe SC (17:55)
[2018-03-16 19:26] LABS: Bedside Glucose 266 mg/dL (70-110)
--- NOTE | 2018-03-16 20:00 | CON.PCM_ITS ---
Reason for Consult Date of Consultation: 03/16/18 Reason for Consultation: Abnormal cardiac enzymes History of Present Illness: The patient is a 72 year old M with a past medical history significant for coronary artery disease hypertension carotid artery disease who has [facility] in the [facility] since June 2017. He tells me that last night he started having some shortness of breath and difficulty breathing as well as epigastric discomfort. He was brought to the emergency room he was noted to be markedly hypertensive and had some EKG changes. He also had a cough and was treated with BiPAP treatment. He was admitted to the intensive care unit cardiac enzymes were obtained and cardiology was called to evaluate him this morning. His past medical history is significant for a non-ST elevation myocardial infarction, in September 2017. He underwent cardiac catheterization at that time which demonstrated a Normal left main coronary artery Left anterior descending artery which is totally occluded Left circumflex artery with severe proximal disease Right coronary artery which is dominant and totally occluded in the midsegment Right internal mammary artery to the posterior descending artery which appears to be patent Left internal mammary artery to the left anterior descending artery which appears to be patent.He underwent angioplasty and stenting to the circumflex artery. He tells me that he did well since then, but his discomfort this time is quite different from now. Past Medical History Allergies/Adverse Reactions: Allergies hydrocodone bitartrate [From Vicodin] Allergy (Verified 03/16/18 06:11) Anaphylaxis hydralazine Adverse Reaction (Verified 03/16/18 06:11) Shortness of breath Home Medications: Ambulatory Orders Medication Instructions Recorded Acetaminophen 500 mg PO Q8H PRN PRN 03/16/18 Amlodipine Besylate [Norvasc] 5 mg PO DAILY 03/16/18 Aspirin [Aspirin, Baby] 81 mg PO DAILY@0800 03/16/18 Atorvastatin Calcium [Lipitor] 40 mg PO QHS 03/16/18 Carvedilol [Coreg] 6.25 mg PO BID 03/16/18 Clopidogrel Bisulfate [Clopidogrel] 75 mg PO DAILY 03/16/18 Donepezil HCl [Aricept] 5 mg PO QHS 03/16/18 Furosemide [Lasix] 40 mg PO BID 03/16/18 Insulin Detemir [Levemir] 40 unit SQ BID 03/16/18 Insulin Lispro [Humalog] 16 unit SQ TIDCM 03/16/18 Iron Polysaccharide Complex 150 mg PO TIDCM 03/16/18 [Ferrex 150] Isosorbide Mononitrate [Isosorbide 30 mg PO DAILY 03/16/18 Mononitrate ER] Magnesium Oxide [Mag-Ox 400] 400 mg PO DAILY 03/16/18 Nitroglycerin [Nitrostat] 0.4 mg SUBLINGUAL Q5M PRN 03/16/18 [place]-3 Acid Ethyl Esters 2 cap PO BID 03/16/18 Pantoprazole Sodium [Protonix] 40 mg PO DAILY 03/16/18 Polyethylene Glycol 3350 [Miralax] 17 gm PO DAILY 03/16/18 Senna/Docusate Sodium [Senokot-S, 1 tablet PO BID 03/16/18 Debbie-Colace] Past Medical History (Chronic Problems): Chronic Problems Iron deficiency anemia (Chronic) Chronic kidney disease (Chronic) Alzheimer's disease (Chronic) Diabetes mellitus (Chronic) Ischemic cardiomyopathy (Chronic) EF is 40% Uncontrolled type 2 diabetes mellitus (Chronic) Coronary artery disease (Chronic) Peptic ulcer disease (Chronic) NSTEMI (non-ST elevated myocardial infarction) (Chronic) H/O carotid endarterectomy (Chronic) August 2017 [facility] Chronic hemorrhagic anemia (Chronic) Acute systolic CHF (congestive heart failure) (Chronic) Stage III chronic kidney disease (Chronic) Esophageal reflux (Chronic) HLD (hyperlipidemia) (Chronic) HTN (hypertension) (Chronic) Coronary artery disease (Chronic) status post CABG H/O coronary artery bypass surgery (Chronic) Obstructive sleep apnea (Chronic) Noncompliant with CPAP CVA (cerebral vascular accident) (Chronic) BPH (benign prostatic hypertrophy) (Chronic) History of PTCA (Chronic) last PTCA was in July 2016 at [facility] Surgical History: coronary bypass surgery, - - Back surgery. Carotid endarterectomy 06/2017. Psychiatric History: No pertinent psych hx - *Family History Sibling History Items: Diabetes, Heart Disease Maternal History Items: Dementia, No pertinent history, - - His mother in her 70s of a stroke Paternal History Items: Dementia, Heart Disease - His father at the age of 56 of a myocardial infarction Lives: Assisted Smoking Status: Former smoker Tobacco Use: Non-smoker Alcohol: None Drugs: None Review of Systems - Review of Systems General: Denies: Fever, Night Sweats, Fatigue Cardiovascular: Reports: Chest Discomfort at Rest, Shortness of Breath, Shortness of Breath at Rest, Shortness of Breath with Exertion. Denies: Chest Discomfort, Orthopnea, PND, Peripheral Edema, Palpitations, Lightheadedness, Dizziness, Near Syncope, Syncope Respiratory: Denies: Cough, Sputum Production, Hemoptysis Gastrointestinal: Denies: Hematemesis, Hematochezia, Melena Genitourinary: Denies: Dysuria, Hematuria Skin: Denies: Rash Subjectve: Pleasant gentleman in no apparent distress Objective: Vital Signs Temp Pulse Resp BP Pulse Ox 97.9 F 72 20 H 142/84 H 93 03/16/18 16:00 03/16/18 19:27 03/16/18 18:00 03/16/18 18:00 03/16/18 18:00 Oxygen Flow Rate (L/min) 2 Oxygen Delivery Method Room Air Weight: 191 lb 2.252 oz Body Mass Index (BMI) 29.0 Intake and Output for Last 24 Hours 03/14/18 03/15/18 03/16/18 23:59 23:59 23:59 Intake Total 908.5 / 908.5 Output Total 200 / 200 Balance 708.5 / 708.5 General: Awake, Alert, Oriented x 3 HEENT: PERRL, EOMI, Sclera Non Icteric Neck: Supple, Good ROM, No Lymph Node Enlargement Lungs: Clear to auscultation Cardiovascular: Regular Rhythm, Normal S1, Normal S2, No Murmurs, No Rubs, No Gallops Vascular: No Carotid Bruits, Normal Femoral Pulses, Normal Radial Pulses, Normal Dorsalis Pedal Pulse, Normal Posterior Tibial Pulses Abdomen: Bowel Sounds Present, Soft, Non Tender, No HSM, No Organomegaly Extremities: No Cyanosis, No Clubbing, No edema Neurological: No Focal Motor or Sensory Deficit 03/16/18 11:00: Troponin I 1.11 H* 03/16/18 14:55: Troponin I 2.39 H* Rhythm: EKG: Normal sinus rhythm with mild ST depression noted in the V5 and V6 at heart rate of 90 bpm Assessment/Plan 1. Non-ST elevation myocardial infarction Patient presents with shortness of breath epigastric discomfort and is noted to have a non-ST elevation myocardial infarction. As you know he underwent angioplasty and stenting of the circumflex artery approximately 6 months ago. I did discuss with him again about the possibility repeating the above. At this time he is not interested in pursuing any further invasive therapy. I also did suggest to him that with his renal dysfunction there is a chance that this could worsen. At this particular time will continue with aggressive medical therapy utilizing the beta-jesus and clopidogrel aspirin and statin and I will suggest the addition of Ranexa. Further recommendations will be made depending on his clinical course. 2. Hypertension. The patient appears to have presented with accelerated hypertension which is doing much better now. The plan will be to continue the same medications. It is likely that this may have contributed to his marked shortness of breath. 3. Congestive heart failure acute diastolic. The patient presented with shortness of breath and markedly elevated blood pressure. I suspect that this was a hypertensive emergency with diastolic heart failure. He did improve rapidly with BiPAP treatment and lowering of his blood pressure. My recommendation will be to obtain an echocardiogram to reassess his left ventricular function. He certainly did develop coronary ischemia with a non-ST elevation myocardial infarction. We will have to discuss whether to reevaluate his coronary anatomy. 4. Carotid artery disease He does have evidence of carotid artery disease and had a cerebrovascular accident previously. He will continue to be followed carefully on aspirin and clopidogrel. 5. Chronic renal dysfunction He does have chronic renal dysfunction and will continue to watch him carefully. I am hesitant to hydrate him much until I see his ejection fraction by echocardiographic assessment.
[2018-03-16] MEDS: Donepezil HCl 5 MG Tablet PO (21:21)
[2018-03-16] MEDS: Atorvastatin Calcium 40 MG Tablet PO (21:22)
[2018-03-16 21:36] LABS: Bedside Glucose 255 mg/dL (70-110)
[2018-03-17] VITALS (28 sets, daily range): BP systolic 119–157; BP diastolic 52–79; PULSE 58–86; RESP 10–25; TEMP 36.4–36.9; O2SAT 91–100
[2018-03-17] MEDS: Ipratropium/Albuterol Sulfate 3 ML AMPUL.NEB INHALATION ×6 (03:01→23:11)
[2018-03-17] MEDS: CHLORHEXIDINE GLUC 2% CLOTH 1 EACH TOWELETTE TOPICAL (05:03)
[2018-03-17] MEDS: Piperacil/Tazobactam 3.375 GM/50 ML ML IV ×3 (05:03→21:13)
[2018-03-17 05:27] LABS: Hematocrit 27.9 % (40-54); Mean Corp Hgb Conc 32.3 g/gl (32-36); Mean Corpuscular Hgb 25.8 pg (27.0-32.0); Mean Corpuscular Volume 79.9 fL (80-94); Mean Platelet Vol. 9.4 fl (6.2-12.0); Platelet Count 152 K/mm3 (150-450); RBC Distribution Width CV 16.1 % (11.6-14.6); RBC Distribution Width SD 45.3 fl (35.1-43.9); Red Blood Count 3.49 M/mm3 (4.6-6.2); White Blood Count 5.6 K/mm3 (4.4-11.0)
[2018-03-17 05:31] LABS: Scan Indicated on CBC? Y/N NO
[2018-03-17 05:52] LABS: Anion Gap 9 (5-15); BUN 53 mg/dL (7-18); BUN/Creat Ratio 25.7 RATIO (10-20); Calcium,Total 7.2 mg/dL (8.5-10.1); Chloride 114 mmol/L (98-107); Creatinine, Serum 2.06 mg/dL (0.70-1.30); EST Glomerular Filtration Rate 34 mL/min (>60); Est Glom Filt Rate - Afr Amer 41 mL/min (>60); Glucose 68 mg/dL (74-106); Potassium 3.3 mmol/L (3.5-5.1); Sodium Level 146 mmol/L (136-145)
--- NOTE | 2018-03-17 05:59 | RAD_ITS ---
STUDY: X-RAY CHEST REASON FOR EXAM: Male, 72 years old. TECHNIQUE: 1 view COMPARISON: March 16, 2018 FINDINGS: There is still mild cardiomegaly with improvement in central vascular congestive changes especially in the left lung. The thickened minor fissure is no more seen on the right side and the size of the consolidation is slightly smaller than had been noted on yesterday's study. Normal visualized thoracic spine. Normal visualized ribs, clavicles, and shoulders. There is no demonstrated abnormality of the visualized soft tissue structures of the upper abdomen. RAD/Chest 1 View (Portable) IMPRESSION: Cardiomegaly with mild improvements in the central vascular congestive changes, the pleural effusions and the area of consolidation in the right lower lobe Electronically Signed: Kishan Dias, at 5:32 EDT Tel , Service support ,
--- NOTE | 2018-03-17 06:00 | EKG12_ITS ---
Test Reason : AM EKG Blood Pressure : / mmHG Vent. Rate : 066 BPM Atrial Rate : 066 BPM P-R Int : 196 ms QRS Dur : 100 ms QT Int : 440 ms P-R-T Axes : 026 049 214 degrees QTc Int : 461 ms Normal sinus rhythm Septal infarct , age undetermined ST & T wave abnormality, consider inferior ischemia ST & T wave abnormality, consider anterolateral ischemia Abnormal ECG Confirmed by DA ZAPATA, THANIA ([id number]), editor in chief KYRA TYLER ([id number]) on 03/19/2018 1:52:12 PM Referred By: SAIDA Confirmed By:THANIA ROBERSON MD
[2018-03-17 06:31] LABS: Bedside Glucose 93 mg/dL (70-110)
--- NOTE | 2018-03-17 06:42 | PCM.PN.HOSP ---
Subjective: Patient with no acute events overnight per self and per nursing report. Patient notes improved status less dyspnea and less coughing although still does state there is mild dyspnea mostly with exertional attempts. He states he does feel improved when he is on the BiPAP therapy. Given patient clinical improvement discussed transfer to PCU with him to which she is amenable. Patient denies fevers, chills, nausea, emesis, abdominal pain, chest pain or worsened or recurrent dyspnea. Objective: Physical Examination: General: awake, alert, oriented x 3, improved status this AM, off BIPAP, cooperative, seated upright in the ICU bed in no apparent distress. Skin: normal color, turgor, no icterus, cyanosis. HEENT: AT/NC, EOMI, PERRLA, MMM. Lungs: Improved, still diminished bases, BIPAP off, no current wheezing, rales, crackles. Heart: Regular rate and rhythm; no gallop, rub audible. Abdomen: soft, NTTP, ND, normal BS. Extremities: no cyanosis, clubbing, mild BL ankle. Neurological: patient awake, alert, oriented x 3; cognitive function intact; pupils equally reactive to light and accomodation; cranial nerves II-XII grossly normal, moving all 4 extremities, no focal deficits, strength improved, moderately globally decreased. Psychiatric: affect appears normal, no acute evidence of depressive or anxiety feelings. Vitals/I&O's: Vital Signs Temp Pulse Resp BP Pulse Ox 97.5 F L 59 L 23 H 144/75 H 98 03/17/18 06:00 03/17/18 06:00 03/17/18 06:00 03/17/18 06:00 03/17/18 06:00 Oxygen Flow Rate (L/min) 2 Oxygen Delivery Method Bi-pap Weight: 196 lb 10.437 oz Body Mass Index (BMI) 29.0 Intake and Output for Last 24 Hours 03/15/18 03/16/18 03/17/18 23:59 23:59 23:59 Intake Total 908.5 / 908.5 783 / 783 Output Total 200 / 200 300 / 300 Balance 708.5 / 708.5 483 / 483 Microbiology Past 72 Hours 03/16/18 10:55 Mucosa - Nose Respiratory Panel (PCR) - Final 03/16/18 09:15 Urine, Clean Catch Streptococcus pneumoniae Antigen (M - Final 03/16/18 09:15 Urine, Clean Catch Legionella Antigen - Final Laboratory Results 03/16/18 08:30: MRSA (PCR) Negative 03/16/18 11:00: Troponin I 1.11 H* 03/16/18 11:13: POC Glucose 361 H 03/16/18 14:55: Troponin I 2.39 H* 03/16/18 19:14: POC Glucose 266 H 03/16/18 20:25: Troponin I 2.92 H* 03/16/18 21:25: POC Glucose 255 H 03/17/18 05:00: WBC 5.6, RBC 3.49 L, Hgb 9.0 L, Hct 27.9 L, MCV 79.9 L, MCH 25.8 L, MCHC 32.3, RDW 16.1 H, RDW Differential 45.3 H, Plt Count 152, MPV 9.4 03/17/18 05:00: Sodium 146 H, Potassium 3.3 L, Chloride 114 H, Carbon Dioxide 23.0, Anion Gap 9, BUN 53 H, Creatinine 2.06 H, Estim Creat Clear Calc 30.90, Est GFR (MDRD) Af Amer 41 L, Est GFR (MDRD) Non-Af 34 L, BUN/Creatinine Ratio 25.7 H, Glucose 68 L, Calcium 7.2 L 03/17/18 06:26: POC Glucose 93 Current Medications Acetaminophen (Tylenol) 650 mg PO Q4H PRN PRN PRN Reason: FEVER Last Admin: 03/16/18 15:05 Dose: 650 mg Acetaminophen (Tylenol) 650 mg PO Q6H PRN PRN PRN Reason: Mild Pain (scale 0-3)/T>100.7 Al Hydroxide/Mg Hydroxide (Mylanta Ii) 30 ml PO Q6H PRN PRN PRN Reason: Gastric burning Albuterol Sulfate (Ventolin Aerosols) 2.5 mg INHALATION Q2H PRN PRN PRN Reason: SHORTNESS OF BREATH Albuterol/Ipratropium (Duoneb) 3 ml INHALATION Q4H.RT GARY Last Admin: 03/17/18 03:01 Dose: 3 ml Amlodipine Besylate (Norvasc) 5 mg PO DAILY GARY Last Admin: 03/16/18 11:11 Dose: 5 mg Aspirin (Aspirin, Baby) 81 mg PO DAILY@0800 [facility] Last Admin: 03/16/18 11:09 Dose: 81 mg Atorvastatin Calcium (Lipitor) 40 mg PO QHS [facility] Last Admin: 03/16/18 21:22 Dose: 40 mg Carvedilol (Coreg) 6.25 mg PO BID [facility] Last Admin: 03/16/18 21:22 Dose: 6.25 mg Chlorhexidine Gluconate () 1 each TOPICAL DAILY [facility] Last Admin: 03/17/18 05:03 Dose: 1 each Clopidogrel Bisulfate (Plavix) 75 mg PO DAILY [facility] Last Admin: 03/16/18 11:11 Dose: 75 mg Dextrose (D50w Syringe) 0 gm IV X1 PRN; Protocol PRN Reason: Hypoglycemia Donepezil HCl (Aricept) 5 mg PO QHS [facility] Last Admin: 03/16/18 21:21 Dose: 5 mg Glucagon () 1 mg IM .X1 PRN PRN Reason: Hypoglycemia Guaifenesin (Mucinex) 1,200 mg PO BID [facility] Last Admin: 03/16/18 21:22 Dose: 1,200 mg Sodium Chloride () 250 mls @ 15 mls/hr IV .[id number] PRN PRN Reason: SALINE FLUSH Sodium Chloride () 250 mls @ 15 mls/hr IV .[id number] PRN PRN Reason: SALINE FLUSH Sodium Chloride () 1,000 mls @ 100 mls/hr IV .Q10H [facility] Last Admin: 03/17/18 05:52 Dose: Not Given Piperacillin Sod/Tazobactam Sod (Zosyn) 3.375 gm in 50 mls @ 12.5 mls/hr IV Q8 [facility] Last Admin: 03/17/18 05:03 Dose: 12.5 mls/hr Insulin Aspart (Novolog Flexpen (Bkc)) 0 units SC ACHS [facility] PRN Reason: Protocol Last Admin: 03/17/18 06:29 Dose: Not Given Insulin Detemir (Levemir (Bkc)) 40 units SC BID [facility] Last Admin: 03/16/18 21:25 Dose: 40 u Isosorbide Mononitrate (Imdur) 30 mg PO DAILY [facility] Last Admin: 03/16/18 11:10 Dose: 30 mg Magnesium Hydroxide (Milk Of Magnesia) 30 ml PO DAILY PRN PRN PRN Reason: Constipation Magnesium Oxide (Mag-Ox 400) 400 mg PO DAILY [facility] Last Admin: 03/16/18 11:10 Dose: 400 mg Nitroglycerin (Nitrostat) 0.4 mg SUBLINGUAL Q5M PRN PRN Reason: Chest Pain Ondansetron HCl (Zofran) 4 mg IV Q8H PRN PRN PRN Reason: NAUSEA Pantoprazole Sodium (Protonix) 40 mg PO DAILY [facility] Last Admin: 03/16/18 11:11 Dose: 40 mg Polyethylene Glycol (Miralax) 17 gm PO DAILY [facility] Last Admin: 03/16/18 11:10 Dose: 17 gm Polysaccharide Iron Complex (Ferrex 150) 150 mg PO TIDCM [facility] Last Admin: 03/16/18 19:17 Dose: 150 mg Senna/Docusate Sodium (Senokot-S, Debbie-Colace) 1 tablet PO BID [facility] Last Admin: 03/16/18 21:23 Dose: 1 tablet Sodium Chloride () 5 - 30 ml IV UD PRN PRN Reason: SALINE FLUSH Last Admin: 03/16/18 15:05 Dose: 10 ml Medical Necessity - Tobacco Use Smoking Status: Former smoker Tobacco Use: Non-smoker Assessment/Plan The patient is a 72 y/o M w/ PMHx: Fe Deficiency Anemia, Hx GI Bleed w/ PUD, CKD stage III, Diabetes mellitus type II, Obesity, MAGDI non-compliant with CPAP, CAD s/p CABG and PCI (last 2015 [facility] main) and [place], Chronic systolic CHF w/ Ischemic Cardiomyopathy (EF 40%), HTN, HLD, Alzheimer's disease, Carotid disease s/p CEA hx, BPH who presents to the [facility] ED on 03/16/18 with acutely worsened respiratory distress starting ~ 2 hours prior to presentation, noted to have awoken him from sleep with 74% oxygenation noted per EMS, with 2 day history of dyspnea, cough. (1) Acute Hypoxic Respiratory Failure secondary to HCAP Pneumonia: CXR in the ED w/ interval development consolidative process right upper lobe, right lower lobe and left lower lobe. Admission CBC w/ WBC 11.8 with left shift-->03/17/18 CBC w/ WBC 5.6, remained afebrile. Admitted to the ICU, maintained on BIPAP, continue ATC duonebs, PRN albuterol, maintained on IV Zosyn and Vancomycin initially w/ negative MRSA swab-->IV zosyn, HOB, IS parameters w/ pending sputum culture request, negative urine antigens, negative respiratory viral panel. Bld cx x 2 obtained in the ED. (2) Acute kidney injury: Secondary to presentation #1. Admission BUN/Cr 66/2.61, prior baseline creatinine noted to be 1.9-2.2. Gently hydrated given CHF history, held nephrotoxic medications as able, 03/17/18 BUN/Cr 53/2.06, improved. Continue to trend, consider restarting lasix within 24 hours. (3) NSTEMI: Likely secondary to #1, #2, EKG in ED without acute evidence of ischemia w/ ST mild depression V5-V6, CXR w/ bilateral infiltrates as noted, initial trop 0.11-->1.11-->2.39-->2.92, discussed w/ Dr. Jernigan, Cardiology, lovenox therapeutic x 1 administered with noted preference to avoid heparin drip. Recent cardiac catheterization ~ 6 months prior, patient declined repeat catheterization and deferred any further invasive therapies. Continue w/ aggressive medical therapy with asa, plavis, BB, statin, per Cardiology recommendation will add ranexa. ASA, NG, morphine. Repeat ECHO pending given just > 6 months since last. (4) Encephalopathy: Multifactorial, secondary to #1, #2, #3, improving in the ED on BIPAP. (5) Chronic systolic CHF w/ Ischemic Cardiomyopathy, Possible Mild Transient Pulmonary Edema secondary to Hypertension, Uncontrolled: Upon ED evaluation initially given improvement w/ BIPAP and dose IV lasix in the ED may have been decompensated at that point; however, CXR was not marked congested and patient again noted no recent weight gain, edema, orthopnea complaints. Had held lasix upon admission secondary to TOM, now resolved, will add back oral regimen. Repeat ECHO as noted pending. Will continue asa, plavix, statin, BB, not on ACEI with CKD, added back lasix as noted. (6) Diabetes mellitus type II: Hold oral home regimen, continue home insulin regimen, allow ADA diet once clinically improved, accu checks w/ ISS. (7) CAD: s/p [place]/PCI/CABG, follows w/ Dr. Jernigan. Will continue home regimen asa, plavix, statin, BB, as noted above w/ NSTEMI acutely will add also ranexa. (8) Hypertension: Initially uncontrolled, improved w/ ED and interventions and following ICU transition w/ BIPAP placement. Continued on home regimen including Norvasc, Coreg, isosorbide, add back lasix w/ hold parameters in place, PRN hydralazine. (9) Hyperlipidemia: Continue home statin regimen. (10) Chronic Fe Deficiency Anemia, Hx PUD w/ GI bleed: Admission Hgb 10.9, stable from December, 03/17/18 Hgb 9, trend. (11) Alzheimer's Dementia with unclear behavioral disturbance: Not on regimen, at [facility], frequent orientation. (12) Carotid Disease: s/p CEA history. (13) GERD: PPI. (14) Hypokalemia: Admission K+ 3.3, supplementation given, repeat level in AM. (15) DVT prophylaxis: SCDs, lovenox therapeutic x 1 administered w/ NSTEMI per Cardiology request, now return to [place] heparin w/ close monitoring. (16) CODE status: DNR-CCA, no intubation status. Code Visit Inpatient E&M: 34363 Subs Hosp L3
--- NOTE | 2018-03-17 06:53 | PN_ITS ---
Subjective: Patient with no acute events overnight per self and per nursing report. Patient notes improved status less dyspnea and less coughing although still does state there is mild dyspnea mostly with exertional attempts. He states he does feel improved when he is on the BiPAP therapy. Given patient clinical improvement discussed transfer to PCU with him to which she is amenable. Patient denies fevers, chills, nausea, emesis, abdominal pain, chest pain or worsened or recurrent dyspnea. Objective: Physical Examination: General: awake, alert, oriented x 3, improved status this AM, off BIPAP, cooperative, seated upright in the ICU bed in no apparent distress. Skin: normal color, turgor, no icterus, cyanosis. HEENT: AT/NC, EOMI, PERRLA, MMM. Lungs: Improved, still diminished bases, BIPAP off, no current wheezing, rales, crackles. Heart: Regular rate and rhythm; no gallop, rub audible. Abdomen: soft, NTTP, ND, normal BS. Extremities: no cyanosis, clubbing, mild BL ankle. Neurological: patient awake, alert, oriented x 3; cognitive function intact; pupils equally reactive to light and accomodation; cranial nerves II-XII grossly normal, moving all 4 extremities, no focal deficits, strength improved, moderately globally decreased. Psychiatric: affect appears normal, no acute evidence of depressive or anxiety feelings. Vitals/I&O's: Vital Signs Temp Pulse Resp BP Pulse Ox 97.5 F L 59 L 23 H 144/75 H 98 03/17/18 06:00 03/17/18 06:00 03/17/18 06:00 03/17/18 06:00 03/17/18 06:00 Oxygen Flow Rate (L/min) 2 Oxygen Delivery Method Bi-pap Weight: 196 lb 10.437 oz Body Mass Index (BMI) 29.0 Intake and Output for Last 24 Hours 03/15/18 03/16/18 03/17/18 23:59 23:59 23:59 Intake Total 908.5 / 908.5 783 / 783 Output Total 200 / 200 300 / 300 Balance 708.5 / 708.5 483 / 483 Microbiology Past 72 Hours 03/16/18 10:55 Mucosa - Nose Respiratory Panel (PCR) - Final 03/16/18 09:15 Urine, Clean Catch Streptococcus pneumoniae Antigen (M - Final 03/16/18 09:15 Urine, Clean Catch Legionella Antigen - Final Laboratory Results 03/16/18 08:30: MRSA (PCR) Negative 03/16/18 11:00: Troponin I 1.11 H* 03/16/18 11:13: POC Glucose 361 H 03/16/18 14:55: Troponin I 2.39 H* 03/16/18 19:14: POC Glucose 266 H 03/16/18 20:25: Troponin I 2.92 H* 03/16/18 21:25: POC Glucose 255 H 03/17/18 05:00: WBC 5.6, RBC 3.49 L, Hgb 9.0 L, Hct 27.9 L, MCV 79.9 L, MCH 25.8 L, MCHC 32.3, RDW 16.1 H, RDW Differential 45.3 H, Plt Count 152, MPV 9.4 03/17/18 05:00: Sodium 146 H, Potassium 3.3 L, Chloride 114 H, Carbon Dioxide 23.0, Anion Gap 9, BUN 53 H, Creatinine 2.06 H, Estim Creat Clear Calc 30.90, Est GFR (MDRD) Af Amer 41 L, Est GFR (MDRD) Non-Af 34 L, BUN/Creatinine Ratio 25.7 H, Glucose 68 L, Calcium 7.2 L 03/17/18 06:26: POC Glucose 93 Current Medications Acetaminophen (Tylenol) 650 mg PO Q4H PRN PRN PRN Reason: FEVER Last Admin: 03/16/18 15:05 Dose: 650 mg Acetaminophen (Tylenol) 650 mg PO Q6H PRN PRN PRN Reason: Mild Pain (scale 0-3)/T>100.7 Al Hydroxide/Mg Hydroxide (Mylanta Ii) 30 ml PO Q6H PRN PRN PRN Reason: Gastric burning Albuterol Sulfate (Ventolin Aerosols) 2.5 mg INHALATION Q2H PRN PRN PRN Reason: SHORTNESS OF BREATH Albuterol/Ipratropium (Duoneb) 3 ml INHALATION Q4H.RT GARY Last Admin: 03/17/18 03:01 Dose: 3 ml Amlodipine Besylate (Norvasc) 5 mg PO DAILY [facility] Last Admin: 03/16/18 11:11 Dose: 5 mg Aspirin (Aspirin, Baby) 81 mg PO DAILY@0800 [facility] Last Admin: 03/16/18 11:09 Dose: 81 mg Atorvastatin Calcium (Lipitor) 40 mg PO QHS [facility] Last Admin: 03/16/18 21:22 Dose: 40 mg Carvedilol (Coreg) 6.25 mg PO BID [facility] Last Admin: 03/16/18 21:22 Dose: 6.25 mg Chlorhexidine Gluconate () 1 each TOPICAL DAILY [facility] Last Admin: 03/17/18 05:03 Dose: 1 each Clopidogrel Bisulfate (Plavix) 75 mg PO DAILY [facility] Last Admin: 03/16/18 11:11 Dose: 75 mg Dextrose (D50w Syringe) 0 gm IV X1 PRN; Protocol PRN Reason: Hypoglycemia Donepezil HCl (Aricept) 5 mg PO QHS [facility] Last Admin: 03/16/18 21:21 Dose: 5 mg Glucagon () 1 mg IM .X1 PRN PRN Reason: Hypoglycemia Guaifenesin (Mucinex) 1,200 mg PO BID [facility] Last Admin: 03/16/18 21:22 Dose: 1,200 mg Sodium Chloride () 250 mls @ 15 mls/hr IV .[id number] PRN PRN Reason: SALINE FLUSH Sodium Chloride () 250 mls @ 15 mls/hr IV .[id number] PRN PRN Reason: SALINE FLUSH Sodium Chloride () 1,000 mls @ 100 mls/hr IV .Q10H [facility] Last Admin: 03/17/18 05:52 Dose: Not Given Piperacillin Sod/Tazobactam Sod (Zosyn) 3.375 gm in 50 mls @ 12.5 mls/hr IV Q8 [facility] Last Admin: 03/17/18 05:03 Dose: 12.5 mls/hr Insulin Aspart (Novolog Flexpen (Bkc)) 0 units SC ACHS [facility] PRN Reason: Protocol Last Admin: 03/17/18 06:29 Dose: Not Given Insulin Detemir (Levemir (Bkc)) 40 units SC BID [facility] Last Admin: 03/16/18 21:25 Dose: 40 u Isosorbide Mononitrate (Imdur) 30 mg PO DAILY [facility] Last Admin: 03/16/18 11:10 Dose: 30 mg Magnesium Hydroxide (Milk Of Magnesia) 30 ml PO DAILY PRN PRN PRN Reason: Constipation Magnesium Oxide (Mag-Ox 400) 400 mg PO DAILY [facility] Last Admin: 03/16/18 11:10 Dose: 400 mg Nitroglycerin (Nitrostat) 0.4 mg SUBLINGUAL Q5M PRN PRN Reason: Chest Pain Ondansetron HCl (Zofran) 4 mg IV Q8H PRN PRN PRN Reason: NAUSEA Pantoprazole Sodium (Protonix) 40 mg PO DAILY [facility] Last Admin: 03/16/18 11:11 Dose: 40 mg Polyethylene Glycol (Miralax) 17 gm PO DAILY [facility] Last Admin: 03/16/18 11:10 Dose: 17 gm Polysaccharide Iron Complex (Ferrex 150) 150 mg PO TIDCM [facility] Last Admin: 03/16/18 19:17 Dose: 150 mg Senna/Docusate Sodium (Senokot-S, Debbie-Colace) 1 tablet PO BID [facility] Last Admin: 03/16/18 21:23 Dose: 1 tablet Sodium Chloride () 5 - 30 ml IV UD PRN PRN Reason: SALINE FLUSH Last Admin: 03/16/18 15:05 Dose: 10 ml Medical Necessity - Tobacco Use Smoking Status: Former smoker Tobacco Use: Non-smoker Assessment/Plan The patient is a 72 y/o M w/ PMHx: Fe Deficiency Anemia, Hx GI Bleed w/ PUD, CKD stage III, Diabetes mellitus type II, Obesity, MAGDI non-compliant with CPAP, CAD s/p CABG and PCI (last 2015 [facility]) and [place], Chronic systolic CHF w/ Ischemic Cardiomyopathy (EF 40%), HTN, HLD, Alzheimer's disease, Carotid disease s/p CEA hx, BPH who presents to the [facility] ED on 03/16/18 with acutely worsened respiratory distress starting ~ 2 hours prior to presentation, noted to have awoken him from sleep with 74% oxygenation noted per EMS, with 2 day history of dyspnea, cough. (1) Acute Hypoxic Respiratory Failure secondary to HCAP Pneumonia: CXR in the ED w/ interval development consolidative process right upper lobe, right lower lobe and left lower lobe. Admission CBC w/ WBC 11.8 with left shift-->03/17/18 CBC w/ WBC 5.6, remained afebrile. Admitted to the ICU, maintained on BIPAP, continue ATC duonebs, PRN albuterol, maintained on IV Zosyn and Vancomycin initially w/ negative MRSA swab-->IV zosyn, HOB, IS parameters w/ pending sputum culture request, negative urine antigens, negative respiratory viral panel. Bld cx x 2 obtained in the ED. (2) Acute kidney injury: Secondary to presentation #1. Admission BUN/Cr 66/2.61 , prior baseline creatinine noted to be 1.9-2.2. Gently hydrated given CHF history, held nephrotoxic medications as able, 03/17/18 BUN/Cr 53/2.06, improved. Continue to trend, consider restarting lasix within 24 hours. (3) NSTEMI: Likely secondary to #1, #2, EKG in ED without acute evidence of ischemia w/ ST mild depression V5-V6, CXR w/ bilateral infiltrates as noted, initial trop 0.11-->1.11-->2.39-->2.92, discussed w/ Dr. Jernigan, Cardiology, lovenox therapeutic x 1 administered with noted preference to avoid heparin drip. Recent cardiac catheterization ~ 6 months prior, patient declined repeat catheterization and deferred any further invasive therapies. Continue w/ aggressive medical therapy with asa, plavis, BB, statin, per Cardiology recommendation will add ranexa. ASA, NG, morphine. Repeat ECHO pending given just > 6 months since last. (4) Encephalopathy: Multifactorial, secondary to #1, #2, #3, improving in the ED on BIPAP. (5) Chronic systolic CHF w/ Ischemic Cardiomyopathy, Possible Mild Transient Pulmonary Edema secondary to Hypertension, Uncontrolled: Upon ED evaluation initially given improvement w/ BIPAP and dose IV lasix in the ED may have been decompensated at that point; however, CXR was not marked congested and patient again noted no recent weight gain, edema, orthopnea complaints. Had held lasix upon admission secondary to TOM, now resolved, will add back oral regimen. Repeat ECHO as noted pending. Will continue asa, plavix, statin, BB, not on ACEI with CKD, added back lasix as noted. (6) Diabetes mellitus type II: Hold oral home regimen, continue home insulin regimen, allow ADA diet once clinically improved, accu checks w/ ISS. (7) CAD: s/p [place]/PCI/CABG, follows w/ Dr. Jernigan. Will continue home regimen asa, plavix, statin, BB, as noted above w/ NSTEMI acutely will add also ranexa. (8) Hypertension: Initially uncontrolled, improved w/ ED and interventions and following ICU transition w/ BIPAP placement. Continued on home regimen including Norvasc, Coreg, isosorbide, add back lasix w/ hold parameters in place , PRN hydralazine. (9) Hyperlipidemia: Continue home statin regimen. (10) Chronic Fe Deficiency Anemia, Hx PUD w/ GI bleed: Admission Hgb 10.9, stable from December, 03/17/18 Hgb 9, trend. (11) Alzheimer's Dementia with unclear behavioral disturbance: Not on regimen, at [facility], frequent orientation. (12) Carotid Disease: s/p CEA history. (13) GERD: PPI. (14) Hypokalemia: Admission K+ 3.3, supplementation given, repeat level in AM. (15) DVT prophylaxis: SCDs, lovenox therapeutic x 1 administered w/ NSTEMI per Cardiology request, now return to [place] heparin w/ close monitoring. (16) CODE status: DNR-CCA, no intubation status. Code Visit Inpatient E&M: [id number] Subs Hosp L3
--- NOTE | 2018-03-17 07:08 | PCM.PN.INT ---
Subjective: The patient was seen and examined at the bedside this morning. Events from the last 24 hours have been reviewed. The patient supplemental oxygen has been weaned over the course of the last 24 hours. He has a minimal supplemental oxygen requirement. However, he does report subjective improvement in symptoms when he utilizes his BiPAP. The patient is now overall net +1.1 L for the admission. Creatinine is improving. Potassium is low at 3.3. Troponins continue to rise and were last noted to be 2.92. Objective: The patient's most recent lab work, culture data and imaging studies have all been personally reviewed. The patient does have a history of obstructive sleep apnea, for which it was recommended that he be placed on bilevel therapy with a pressure setting of 15/11 cm of water with humidification. Surface echocardiogram dated August 2017 revealed a hypokinetic LV with an ejection fraction of 40%. Pulmonary artery systolic pressure was estimated to be 33 mmHg. Cardiac catheterization performed in September 2017 revealed evidence of coronary artery disease, for which the patient underwent successful drug-eluting stent placement to the proximal circumflex. Respiratory viral panel was negative. Strep and urine Legionella antigens were both negative. Blood cultures are pending. General: Alert, Cooperative, No apparent distress HEENT: Atraumatic, PERRLA, Normocephalic Oral: No Gingival or Mucosal Lesions/ Ulcerations Neck: Supple, No Nodes, Trachea Midline Lungs: No rhonchi, No wheeze, No rales, Diminished Cardiovascular: Regular rate, Regular Rhythm, Normal S1, Normal S2, No murmurs Abdomen: Bowel Sounds Present, Soft, Non Tender, Non-Distended Extremities: No clubbing, No cyanosis, - - Trace pedal edema Skin: No breakdown Musculoskeletal: No Muscle Wasting Lymphatic: No Cervical, Supraclavicular, or Inguinal Adenopathy Neurological: Neuro grossly intact Psych/Mental Status: Normal Affect, Appropriate Vital Signs Temp Pulse Resp BP Pulse Ox 97.5 F L 59 L 23 H 144/75 H 98 03/17/18 06:00 03/17/18 06:00 03/17/18 06:00 03/17/18 06:00 03/17/18 06:00 Oxygen Flow Rate (L/min) 2 Oxygen Delivery Method Bi-pap Weight: 196 lb 10.437 oz Body Mass Index (BMI) 29.0 Intake and Output for Last 24 Hours 03/15/18 03/16/18 03/17/18 23:59 23:59 23:59 Intake Total 908.5 / 908.5 783 / 783 Output Total 200 / 200 300 / 300 Balance 708.5 / 708.5 483 / 483 Labs (Last 48 Hours) 03/16/18 03/16/18 03/16/18 08:30 11:00 11:13 WBC RBC Hgb Hct MCV MCH MCHC RDW RDW Differential Plt Count MPV Sodium Potassium Chloride Carbon Dioxide Anion Gap BUN Creatinine Estim Creat Clear Calc Est GFR (MDRD) Af Amer Est GFR (MDRD) Non-Af BUN/Creatinine Ratio Glucose Calcium Troponin I 1.11 H* MRSA (PCR) Negative POC Glucose 361 H 03/16/18 03/16/18 03/16/18 14:55 19:14 20:25 WBC RBC Hgb Hct MCV MCH MCHC RDW RDW Differential Plt Count MPV Sodium Potassium Chloride Carbon Dioxide Anion Gap BUN Creatinine Estim Creat Clear Calc Est GFR (MDRD) Af Amer Est GFR (MDRD) Non-Af BUN/Creatinine Ratio Glucose Calcium Troponin I 2.39 H* 2.92 H* MRSA (PCR) POC Glucose 266 H 03/16/18 03/17/18 03/17/18 21:25 05:00 05:00 WBC 5.6 RBC 3.49 L Hgb 9.0 L Hct 27.9 L MCV 79.9 L MCH 25.8 L MCHC 32.3 RDW 16.1 H RDW Differential 45.3 H Plt Count 152 MPV 9.4 Sodium 146 H Potassium 3.3 L Chloride 114 H Carbon Dioxide 23.0 Anion Gap 9 BUN 53 H Creatinine 2.06 H Estim Creat Clear Calc 30.90 Est GFR (MDRD) Af Amer 41 L Est GFR (MDRD) Non-Af 34 L BUN/Creatinine Ratio 25.7 H Glucose 68 L Calcium 7.2 L Troponin I MRSA (PCR) POC Glucose 255 H 03/17/18 06:26 WBC RBC Hgb Hct MCV MCH MCHC RDW RDW Differential Plt Count MPV Sodium Potassium Chloride Carbon Dioxide Anion Gap BUN Creatinine Estim Creat Clear Calc Est GFR (MDRD) Af Amer Est GFR (MDRD) Non-Af BUN/Creatinine Ratio Glucose Calcium Troponin I MRSA (PCR) POC Glucose 93 Microbiology 03/16/18 10:55 Mucosa - Nose Respiratory Panel (PCR) - Final 03/16/18 09:15 Urine, Clean Catch Streptococcus pneumoniae Antigen (M - Final 03/16/18 09:15 Urine, Clean Catch Legionella Antigen - Final Clinical Impression(s) from Imaging Studies Chest X-Ray 03/16/18 06:12 IMPRESSION: Bilateral pneumonias Electronically Signed: Kishan Dias, at 6:37 EDT Tel , Service support , Chest X-Ray 03/17/18 05:59 IMPRESSION: Cardiomegaly with mild improvements in the central vascular congestive changes, the pleural effusions and the area of consolidation in the right lower lobe Electronically Signed: Kishan Dias, at 5:32 EDT Tel , Service support , Medical Necessity - Tobacco Use Smoking Status: Former smoker Tobacco Use: Non-smoker Assessment/Plan RECOMMENDATIONS: 1. Continue antibiotics. 2. Wean supplemental oxygen to maintain saturations at or above 90% 3. Continue home antihypertensive regimen 4. Continue Levemir and sliding scale insulin coverage. Decrease basal Levemir dose, given hypoglycemia this morning. 5. Recommend empiric BiPAP utilization 15/11 cm of water nightly. 6. Continue subcu heparin for DVT prophylaxis. Mobilize patient as tolerated. IMPRESSIONS: 1. Acute hypoxemic respiratory failure secondary to healthcare associated pneumonia Continue antibiotics as ordered. The patient can likely be transitioned to p.o. Levaquin beginning tomorrow. The patient has been weaned from noninvasive positive pressure ventilation. His supplemental oxygen will be weaned to maintain oxygen saturations at or above 90%. Although the patient's accelerated blood pressure on presentation may have led to a mild degree of pulmonary vascular congestion, his plain film chest imaging did reveal a right-sided consolidative process. Therefore, recommend completing a 7 day treatment course of antibiotics. 2. Acute on chronic renal insufficiency Improved. Unclear etiology. We will continue to monitor urine output. No indication for renal replacement therapy currently. Slow reintroduction of diuretics indicated. 3. Troponin elevation/known coronary artery disease/chronic systolic heart failure/hypertension Potentially related to demand ischemia in the setting of #1. Cardiology is following. Continue outpatient antihypertensive regimen. 4. Personal history of obstructive sleep apnea The patient is noncompliant with the use of nocturnal noninvasive positive pressure ventilation. His last sleep study indicated a need for bilevel therapy at a pressure setting of 15/11 cm of water. Recommend empiric utilization while admitted to the hospital on a nightly basis. 5. Hyperlipidemia/iron deficiency anemia/GERD/Alzheimer's dementia/diabetes Complicates care, management, recovery and prognosis. Continue Levemir and sliding scale insulin coverage. Recommend physical therapy evaluation. This note was generated with [employer] dictation software. It may contain incorrect words, spelling, and punctuation that were not noted in checking the note before signing. DISPOSITION: The patient is medically stable for transfer out of the intensive care unit. Code Visit Inpatient E&M: 32039 [facility] H[facility] L3
--- NOTE | 2018-03-17 07:11 | PN_ITS ---
Subjective: The patient was seen and examined at the bedside this morning. Events from the last 24 hours have been reviewed. The patient supplemental oxygen has been weaned over the course of the last 24 hours. He has a minimal supplemental oxygen requirement. However, he does report subjective improvement in symptoms when he utilizes his BiPAP. The patient is now overall net +1.1 L for the admission. Creatinine is improving. Potassium is low at 3.3. Troponins continue to rise and were last noted to be 2.92. Objective: The patient's most recent lab work, culture data and imaging studies have all been personally reviewed. The patient does have a history of obstructive sleep apnea, for which it was recommended that he be placed on bilevel therapy with a pressure setting of 15/11 cm of water with humidification. Surface echocardiogram dated August 2017 revealed a hypokinetic LV with an ejection fraction of 40%. Pulmonary artery systolic pressure was estimated to be 33 mmHg. Cardiac catheterization performed in September 2017 revealed evidence of coronary artery disease, for which the patient underwent successful drug- eluting stent placement to the proximal circumflex. Respiratory viral panel was negative. Strep and urine Legionella antigens were both negative. Blood cultures are pending. General: Alert, Cooperative, No apparent distress HEENT: Atraumatic, PERRLA, Normocephalic Oral: No Gingival or Mucosal Lesions/ Ulcerations Neck: Supple, No Nodes, Trachea Midline Lungs: No rhonchi, No wheeze, No rales, Diminished Cardiovascular: Regular rate, Regular Rhythm, Normal S1, Normal S2, No murmurs Abdomen: Bowel Sounds Present, Soft, Non Tender, Non-Distended Extremities: No clubbing, No cyanosis, - - Trace pedal edema Skin: No breakdown Musculoskeletal: No Muscle Wasting Lymphatic: No Cervical, Supraclavicular, or Inguinal Adenopathy Neurological: Neuro grossly intact Psych/Mental Status: Normal Affect, Appropriate Vital Signs Temp Pulse Resp BP Pulse Ox 97.5 F L 59 L 23 H 144/75 H 98 03/17/18 06:00 03/17/18 06:00 03/17/18 06:00 03/17/18 06:00 03/17/18 06:00 Oxygen Flow Rate (L/min) 2 Oxygen Delivery Method Bi-pap Weight: 196 lb 10.437 oz Body Mass Index (BMI) 29.0 Intake and Output for Last 24 Hours 03/15/18 03/16/18 03/17/18 23:59 23:59 23:59 Intake Total 908.5 / 908.5 783 / 783 Output Total 200 / 200 300 / 300 Balance 708.5 / 708.5 483 / 483 Labs (Last 48 Hours) 03/16/18 03/16/18 03/16/18 08:30 11:00 11:13 WBC RBC Hgb Hct MCV MCH MCHC RDW RDW Differential Plt Count MPV Sodium Potassium Chloride Carbon Dioxide Anion Gap BUN Creatinine Estim Creat Clear Calc Est GFR (MDRD) Af Amer Est GFR (MDRD) Non-Af BUN/Creatinine Ratio Glucose Calcium Troponin I 1.11 H* MRSA (PCR) Negative POC Glucose 361 H 03/16/18 03/16/18 03/16/18 14:55 19:14 20:25 WBC RBC Hgb Hct MCV MCH MCHC RDW RDW Differential Plt Count MPV Sodium Potassium Chloride Carbon Dioxide Anion Gap BUN Creatinine Estim Creat Clear Calc Est GFR (MDRD) Af Amer Est GFR (MDRD) Non-Af BUN/Creatinine Ratio Glucose Calcium Troponin I 2.39 H* 2.92 H* MRSA (PCR) POC Glucose 266 H 03/16/18 03/17/18 03/17/18 21:25 05:00 05:00 WBC 5.6 RBC 3.49 L Hgb 9.0 L Hct 27.9 L MCV 79.9 L MCH 25.8 L MCHC 32.3 RDW 16.1 H RDW Differential 45.3 H Plt Count 152 MPV 9.4 Sodium 146 H Potassium 3.3 L Chloride 114 H Carbon Dioxide 23.0 Anion Gap 9 BUN 53 H Creatinine 2.06 H Estim Creat Clear Calc 30.90 Est GFR (MDRD) Af Amer 41 L Est GFR (MDRD) Non-Af 34 L BUN/Creatinine Ratio 25.7 H Glucose 68 L Calcium 7.2 L Troponin I MRSA (PCR) POC Glucose 255 H 03/17/18 06:26 WBC RBC Hgb Hct MCV MCH MCHC RDW RDW Differential Plt Count MPV Sodium Potassium Chloride Carbon Dioxide Anion Gap BUN Creatinine Estim Creat Clear Calc Est GFR (MDRD) Af Amer Est GFR (MDRD) Non-Af BUN/Creatinine Ratio Glucose Calcium Troponin I MRSA (PCR) POC Glucose 93 Microbiology 03/16/18 10:55 Mucosa - Nose Respiratory Panel (PCR) - Final 03/16/18 09:15 Urine, Clean Catch Streptococcus pneumoniae Antigen (M - Final 03/16/18 09:15 Urine, Clean Catch Legionella Antigen - Final Clinical Impression(s) from Imaging Studies Chest X-Ray 03/16/18 06:12 IMPRESSION: Bilateral pneumonias Electronically Signed: Kishan Dias, at 6:37 EDT Tel , Service support , Chest X-Ray 03/17/18 05:59 IMPRESSION: Cardiomegaly with mild improvements in the central vascular congestive changes, the pleural effusions and the area of consolidation in the right lower lobe Electronically Signed: Kishan Dias, at 5:32 EDT Tel , Service support , Medical Necessity - Tobacco Use Smoking Status: Former smoker Tobacco Use: Non-smoker Assessment/Plan RECOMMENDATIONS: 1. Continue antibiotics. 2. Wean supplemental oxygen to maintain saturations at or above 90% 3. Continue home antihypertensive regimen 4. Continue Levemir and sliding scale insulin coverage. Decrease basal Levemir dose, given hypoglycemia this morning. 5. Recommend empiric BiPAP utilization 15/11 cm of water nightly. 6. Continue subcu heparin for DVT prophylaxis. Mobilize patient as tolerated. IMPRESSIONS: 1. Acute hypoxemic respiratory failure secondary to healthcare associated pneumonia Continue antibiotics as ordered. The patient can likely be transitioned to p.o. Levaquin beginning tomorrow. The patient has been weaned from noninvasive positive pressure ventilation. His supplemental oxygen will be weaned to maintain oxygen saturations at or above 90%. Although the patient's accelerated blood pressure on presentation may have led to a mild degree of pulmonary vascular congestion, his plain film chest imaging did reveal a right- sided consolidative process. Therefore, recommend completing a 7 day treatment course of antibiotics. 2. Acute on chronic renal insufficiency Improved. Unclear etiology. We will continue to monitor urine output. No indication for renal replacement therapy currently. Slow reintroduction of diuretics indicated. 3. Troponin elevation/known coronary artery disease/chronic systolic heart failure/hypertension Potentially related to demand ischemia in the setting of #1. Cardiology is following. Continue outpatient antihypertensive regimen. 4. Personal history of obstructive sleep apnea The patient is noncompliant with the use of nocturnal noninvasive positive pressure ventilation. His last sleep study indicated a need for bilevel therapy at a pressure setting of 15/11 cm of water. Recommend empiric utilization while admitted to the hospital on a nightly basis. 5. Hyperlipidemia/iron deficiency anemia/GERD/Alzheimer's dementia/diabetes Complicates care, management, recovery and prognosis. Continue Levemir and sliding scale insulin coverage. Recommend physical therapy evaluation. This note was generated with [employer] dictation software. It may contain incorrect words, spelling, and punctuation that were not noted in checking the note before signing. DISPOSITION: The patient is medically stable for transfer out of the intensive care unit. Code Visit Inpatient E&M: 35632 [facility] Hosp L3
[2018-03-17] MEDS: Iron Polysaccharide Complex 150 MG CAPSULE PO ×3 (08:13→17:39)
[2018-03-17] MEDS: guaiFENesin 1,200 MG Tablet 1200 MG PO ×2 (08:13→21:14)
[2018-03-17] MEDS: Isosorbide Mononitrate 30 MG Tablet PO (08:13)
[2018-03-17] MEDS: amLODIPine 5 MG Tablet PO (08:13)
[2018-03-17] MEDS: Clopidogrel Bisulfate 75 MG Tablet PO (08:14)
[2018-03-17] MEDS: Carvedilol 6.25 MG Tablet PO ×2 (08:14→21:14)
[2018-03-17] MEDS: Polyethylene Glycol 3350 17 GM PACKET PO (08:14)
[2018-03-17] MEDS: Senna/Docusate Sodium 1 Tablet PO ×2 (08:14→21:14)
[2018-03-17] MEDS: Magnesium Oxide 400 MG Tablet PO (08:15)
[2018-03-17] MEDS: Aspirin 81 MG TAB.CHEW PO (08:15)
[2018-03-17] MEDS: Pantoprazole Sodium 40 MG Tablet PO (08:15)
[2018-03-17] MEDS: 0.9% Normal Saline 1,000 ML 30 ML IV (08:26)
[2018-03-17] MEDS: Ranolazine 500 MG Tablet PO ×2 (10:26→21:14)
[2018-03-17] MEDS: Furosemide 40 MG Tablet PO ×2 (10:26→21:14)
[2018-03-17] MEDS: 0.9% NaCl Peripheral Flush Adult/Peds IV (10:26)
[2018-03-17 12:01] LABS: Bedside Glucose 180 mg/dL (70-110)
[2018-03-17] MEDS: Heparin Injection (Vial) 5,000 UNIT/ML VIAL 5000 UNIT SC ×2 (14:24→21:15)
--- NOTE | 2018-03-17 14:28 | CASEMGMT ---
Social Work Reviewed therapy notes and spoke with Jessica at [facility]. Pt insurance is out of network at [facility]. There are beds available at [facility] and pt would be responsible for 25% of bill throughout skilled stay. In network facilities are covered at 100% for days 1-20. Per Jessica, the assisted living at [facility] is more like an independent living and pt will need to be able to function independently upon return. ASHLEY met with pt in room and discussed d/c plan. Pt hopeful he can return to assisted living. SW explained that if he is unable to stay there independently he may need short term SNF prior to returning. Explained in network and out of network benefits. Pt expresses understanding and continues to state he plans to return to [place]. SW will follow up with pt tomorrow for discharge planning. Clinical update faxed to Jessica at [facility]. CARMEN Danielle
[2018-03-17] MEDS: Acetaminophen 325 MG Tablet 650 MG PO (14:59)
--- NOTE | 2018-03-17 17:08 | PN.CARD_ITS ---
Subjectve: Patient seen and evaluated and appears to be doing much better at this time. He denies any shortness of breath or chest discomfort. Objective: Vital Signs Temp Pulse Resp BP Pulse Ox 98.1 F 66 16 132/68 H 93 03/17/18 16:10 03/17/18 16:10 03/17/18 16:10 03/17/18 16:10 03/17/18 16:10 Oxygen Flow Rate (L/min) 2 Oxygen Delivery Method Nasal Cannula Weight: 196 lb 10.437 oz Body Mass Index (BMI) 29.0 Intake and Output for Last 24 Hours 03/15/18 03/16/18 03/17/18 23:59 23:59 23:59 Intake Total 908.5 / 908.5 1023 / 1023 Output Total 200 / 200 300 / 300 Balance 708.5 / 708.5 723 / 723 General: Awake, Alert, Oriented x 3 HEENT: PERRL, EOMI, Sclera Non Icteric Neck: Supple, Good ROM, No Lymph Node Enlargement Lungs: Clear to auscultation Cardiovascular: Regular Rhythm, Normal S1, Normal S2, No Murmurs, No Rubs, No Gallops Vascular: No Carotid Bruits, Normal Femoral Pulses, Normal Radial Pulses, Normal Dorsalis Pedal Pulse, Normal Posterior Tibial Pulses Abdomen: Bowel Sounds Present, Soft, Non Tender, No HSM, No Organomegaly Extremities: No Cyanosis, No Clubbing, No edema Neurological: No Focal Motor or Sensory Deficit 03/16/18 20:25: Troponin I 2.92 H* 03/17/18 05:00: WBC 5.6, RBC 3.49 L, Hgb 9.0 L, Hct 27.9 L, MCV 79.9 L, MCH 25.8 L, MCHC 32.3, RDW 16.1 H, RDW Differential 45.3 H, Plt Count 152, MPV 9.4 03/17/18 05:00: Sodium 146 H, Potassium 3.3 L, Chloride 114 H, Carbon Dioxide 23.0, Anion Gap 9, BUN 53 H, Creatinine 2.06 H, Est GFR (MDRD) Af Amer 41 L, Est GFR (MDRD) Non-Af 34 L, BUN/Creatinine Ratio 25.7 H, Glucose 68 L, Calcium 7.2 L Rhythm: EKG: ECHO: Stress Test: Cardiac Cath: PCI: CT Surgery: Holter monitor: EPS: PPM: CXR: Chest CT Scan: Medical Necessity - Tobacco Use Smoking Status: Former smoker Tobacco Use: Non-smoker Assessment/Plan 1. Non-ST elevation myocardial infarction Patient presents with shortness of breath epigastric discomfort and is noted to have a non-ST elevation myocardial infarction. As you know he underwent angioplasty and stenting of the circumflex artery approximately 6 months ago. I did discuss with him again about the possibility repeating the above. At this time he is not interested in pursuing any further invasive therapy. I also did suggest to him that with his renal dysfunction there is a chance that this could worsen. At this particular time will continue with aggressive medical therapy utilizing the beta-jesus and clopidogrel aspirin and statin and I will suggest the addition of Ranexa. Further recommendations will be made depending on his clinical course. His segmental wall motion abnormalities at this time did not appear to be any different from June 2017. 2. Hypertension. The patient appears to have presented with accelerated hypertension which is doing much better now. The plan will be to continue the same medications. It is likely that this may have contributed to his marked shortness of breath. 3. Congestive heart failure acute diastolic. The patient presented with shortness of breath and markedly elevated blood pressure. I suspect that this was a hypertensive emergency with diastolic heart failure. He did improve rapidly with BiPAP treatment and lowering of his blood pressure. His left ventricular ejection fraction is estimated to be 40% with segmental wall motion abnormalities. He certainly did develop coronary ischemia with a non-ST elevation myocardial infarction. We will have to discuss whether to reevaluate his coronary anatomy. 4. Carotid artery disease He does have evidence of carotid artery disease and had a cerebrovascular accident previously. He will continue to be followed carefully on aspirin and clopidogrel. 5. Chronic renal dysfunction He does have chronic renal dysfunction and will continue to watch him carefully. This appears to have stabilized. Will discuss with patient once again as to whether an invasive approach is completely against his wishes. Above discussed with hospitalist and core measures abstractor. Thank you for allowing me to participate in the care of your patient. Please don't hesitate to call if any issues arise
[2018-03-17 17:46] LABS: Bedside Glucose 225 mg/dL (70-110)
[2018-03-17] MEDS: Donepezil HCl 5 MG Tablet PO (21:14)
[2018-03-17] MEDS: Atorvastatin Calcium 40 MG Tablet PO (21:15)
[2018-03-17 21:41] LABS: Bedside Glucose 249 mg/dL (70-110)
[2018-03-18] VITALS (17 sets, daily range): BP systolic 131–164; BP diastolic 63–82; PULSE 60–85; RESP 10–25; TEMP 36.7–36.9; O2SAT 92–97
[2018-03-18] MEDS: Ipratropium/Albuterol Sulfate 3 ML AMPUL.NEB INHALATION ×6 (02:20→23:08)
[2018-03-18] MEDS: Piperacil/Tazobactam 3.375 GM/50 ML ML IV (05:53)
[2018-03-18] MEDS: Heparin Injection (Vial) 5,000 UNIT/ML VIAL 5000 UNIT SC ×3 (05:59→21:54)
[2018-03-18 06:55] LABS: Bedside Glucose 198 mg/dL (70-110)
--- NOTE | 2018-03-18 08:15 | PCM.PN.CARD ---
Subjectve: Patient seen and evaluated. Appears to be doing better this morning. However got short of breath going to the bathroom. Objective: Vital Signs Temp Pulse Resp BP Pulse Ox 98.4 F 68 24 H 159/82 H 92 03/18/18 03:25 03/18/18 06:54 03/18/18 06:51 03/18/18 03:25 03/18/18 06:51 Oxygen Flow Rate (L/min) 2 Oxygen Delivery Method Bi-pap Weight: 195 lb 8.8 oz Body Mass Index (BMI) 29.0 Intake and Output for Last 24 Hours 03/16/18 03/17/18 03/18/18 23:59 23:59 23:59 Intake Total 908.5 / 908.5 1796 / 1796 164 / 164 Output Total 200 / 200 300 / 300 100 / 100 Balance 708.5 / 708.5 1496 / 1496 64 / 64 General: Awake, Alert, Oriented x 3 HEENT: PERRL, EOMI, Sclera Non Icteric Neck: Supple, Good ROM, No Lymph Node Enlargement Lungs: Clear to auscultation Cardiovascular: Regular Rhythm, Normal S1, Normal S2, No Murmurs, No Rubs, No Gallops Vascular: No Carotid Bruits, Normal Femoral Pulses, Normal Radial Pulses, Normal Dorsalis Pedal Pulse, Normal Posterior Tibial Pulses Abdomen: Bowel Sounds Present, Soft, Non Tender, No HSM, No Organomegaly Extremities: No Cyanosis, No Clubbing, No edema Neurological: No Focal Motor or Sensory Deficit Rhythm: EKG: ECHO: Stress Test: Cardiac Cath: PCI: CT Surgery: Holter monitor: EPS: PPM: CXR: Chest CT Scan: Medical Necessity - Tobacco Use Smoking Status: Former smoker Tobacco Use: Non-smoker Assessment/Plan 1. Non-ST elevation myocardial infarction Patient presents with shortness of breath epigastric discomfort and is noted to have a non-ST elevation myocardial infarction. As you know he underwent angioplasty and stenting of the circumflex artery approximately 6 months ago. I did discuss with him again about the possibility repeating the above. At this time he is not interested in pursuing any further invasive therapy. I also did suggest to him that with his renal dysfunction there is a chance that this could worsen. At this particular time will continue with aggressive medical therapy utilizing the beta-jesus and clopidogrel aspirin and statin and I will suggest the addition of Ranexa. Further recommendations will be made depending on his clinical course. His segmental wall motion abnormalities at this time did not appear to be any different from June 2017. 2. Hypertension. The patient appears to have presented with accelerated hypertension which is doing much better now. The plan will be to continue the same medications. It is likely that this may have contributed to his marked shortness of breath. 3. Congestive heart failure acute diastolic. The patient presented with shortness of breath and markedly elevated blood pressure. I suspect that this was a hypertensive emergency with diastolic heart failure. He did improve rapidly with BiPAP treatment and lowering of his blood pressure. His left ventricular ejection fraction is estimated to be 40% with segmental wall motion abnormalities. He certainly did develop coronary ischemia with a non-ST elevation myocardial infarction. We will have to discuss whether to reevaluate his coronary anatomy. He continues to require some BiPAP intermittently and would adjust his diuretic therapy. 4. Carotid artery disease He does have evidence of carotid artery disease and had a cerebrovascular accident previously. He will continue to be followed carefully on aspirin and clopidogrel. 5. Chronic renal dysfunction He does have chronic renal dysfunction and will continue to watch him carefully. This appears to have stabilized. Will discuss with patient once again as to whether an invasive approach is completely against his wishes. Above discussed with hospitalist and software qa system specialist. Thank you for allowing me to participate in the care of your patient. Please don't hesitate to call if any issues arise
--- NOTE | 2018-03-18 09:09 | PCM.PROGNOTE ---
Subjective: Patient was seen and examined. He is sitting up in the chair and is somewhat tachypneic eating his breakfast. He appears to be splinting his respirations. His son-in-law is at the bedside. Dates he is short of breath with minimal exertion. Nursing staff reports he has had difficulties this morning with his breathing and requested to be on the BiPAP. - Physical Exam General: Alert, Oriented x3, Cooperative, - - Mild respiratory distress and conversational dyspnea. Appears anxious HEENT: Atraumatic, PERRLA, Normocephalic Oral: Moist Mucosa Neck: Supple, No Nodes, Trachea Midline Lungs: No rhonchi, No wheeze, No rales, Tachypneic, Using Accessory Muscles, - - Very diminished throughout Cardiovascular: Regular rate, Regular Rhythm, Normal S1, Normal S2, No murmurs Abdomen: Bowel Sounds Present, Soft, Non Tender, Non-Distended Extremities: No clubbing, No cyanosis, No edema Skin: No rashes, No breakdown Musculoskeletal: No Tenderness to Palpation of Joints or Extremities Lymphatic: No Cervical, Supraclavicular, or Inguinal Adenopathy Neurological: Neuro grossly intact Psych/Mental Status: Alert and oriented to time, place, person, mood and affect Vital Signs Temp Pulse Resp BP Pulse Ox 98.4 F 68 24 H 159/82 H 92 03/18/18 03:25 03/18/18 06:54 03/18/18 06:51 03/18/18 03:25 03/18/18 06:51 Oxygen Flow Rate (L/min) 2 Oxygen Delivery Method Bi-pap Weight: 195 lb 8.8 oz Body Mass Index (BMI) 29.0 Intake and Output for Last 24 Hours 03/16/18 03/17/18 03/18/18 23:59 23:59 23:59 Intake Total 908.5 / 908.5 1796 / 1796 164 / 164 Output Total 200 / 200 300 / 300 100 / 100 Balance 708.5 / 708.5 1496 / 1496 64 / 64 Microbiology Past 72 Hours 03/16/18 10:55 Respiratory Panel (PCR) - Final Mucosa - Nose 03/16/18 09:15 Streptococcus pneumoniae Antigen (M - Final Urine, Clean Catch 03/16/18 09:15 Legionella Antigen - Final Urine, Clean Catch POC Glucose 03/18/18 03/17/1818 06:51 21:19 17:36 POC Glucose 198 H 249 H 225 H 03/17/18 11:30 POC Glucose 180 H Medical Necessity - Tobacco Use Smoking Status: Former smoker Tobacco Use: Non-smoker Assessment/Plan RECOMMENDATIONS: 1. Transition to oral levaquin today 2. Wean supplemental oxygen to maintain saturations at or above 90% 3. Continue home antihypertensive regimen 4. Continue Levemir and sliding scale insulin coverage, adjust as indicated 5. Empiric BiPAP utilization 15/11 cm of water nightly 6. Mobilize patient as tolerated. IMPRESSIONS: 1. Acute hypoxemic respiratory failure secondary to healthcare associated pneumonia Continue antibiotics as ordered. The patient has been weaned from noninvasive positive pressure ventilation. His supplemental oxygen will be weaned to maintain oxygen saturations at or above 90%. Although the patient's accelerated blood pressure on presentation may have led to a mild degree of pulmonary vascular congestion, his plain film chest imaging did reveal a right-sided consolidative process. Therefore, recommend completing a 7 day treatment course of antibiotics. Transition to p.o. Levaquin today. 2. Acute on chronic renal insufficiency Improved. Unclear etiology. We will continue to monitor urine output. No indication for renal replacement therapy currently. Slow reintroduction of diuretics indicated. 3. Troponin elevation/known coronary artery disease/chronic systolic heart failure/hypertension Potentially related to demand ischemia in the setting of #1. Cardiology is following. Continue outpatient antihypertensive regimen per cardiology recommendations. 4. Personal history of obstructive sleep apnea The patient is noncompliant with the use of nocturnal noninvasive positive pressure ventilation. His last sleep study indicated a need for bilevel therapy at a pressure setting of 15/11 cm of water. Recommend empiric utilization while admitted to the hospital on a nightly basis. 5. Hyperlipidemia/iron deficiency anemia/GERD/Alzheimer's dementia/diabetes Complicates care, management, recovery and prognosis. Continue Levemir and sliding scale insulin coverage. Continue PT/OT. This note was generated with [employer] software. It may contain incorrect words, spelling, and punctuation that were not noted in checking the note before signing.
[2018-03-18] MEDS: Ranolazine 500 MG Tablet PO ×2 (09:30→21:58)
[2018-03-18] MEDS: Pantoprazole Sodium 40 MG Tablet PO (09:30)
[2018-03-18] MEDS: Clopidogrel Bisulfate 75 MG Tablet PO (09:30)
[2018-03-18] MEDS: amLODIPine 5 MG Tablet PO (09:30)
[2018-03-18] MEDS: Senna/Docusate Sodium 1 Tablet PO ×2 (09:30→21:58)
[2018-03-18] MEDS: Carvedilol 6.25 MG Tablet PO ×2 (09:31→21:58)
[2018-03-18] MEDS: Isosorbide Mononitrate 30 MG Tablet PO (09:31)
[2018-03-18] MEDS: Furosemide 40 MG Tablet PO ×2 (09:31→21:57)
[2018-03-18] MEDS: Aspirin 81 MG TAB.CHEW PO (09:31)
[2018-03-18] MEDS: Iron Polysaccharide Complex 150 MG CAPSULE PO ×3 (09:31→16:45)
[2018-03-18] MEDS: Polyethylene Glycol 3350 17 GM PACKET PO (09:31)
[2018-03-18] MEDS: Magnesium Oxide 400 MG Tablet PO (09:31)
[2018-03-18] MEDS: guaiFENesin 1,200 MG Tablet 1200 MG PO ×2 (09:31→21:57)
[2018-03-18] MEDS: levoFLOXacin 750 MG Tablet PO (10:44)
--- NOTE | 2018-03-18 11:30 | CASEMGMT ---
Social Work Rounded with physicians and spoke with pt RN. Pt continues to be SOB and needing assistance for ambulating and ADLS. Met with pt in room to readdress discharge pt. At this time pt stating he realizes he will need SNF prior to return to [place]. SW reviewed with pt in network and out of network benefits and pt would like to go to [facility]CU upon d/c prior to return to [facility]. SW asked if POA could be notified and pt states his dgt will be in shortly and he will notify her of his intentions. Phone call to [facility] in [facility]CU and bed is available and they can accept pending insurance authorization. SW to continue to follow for SNF placement. Plan: TCU, pending insurance CARMEN Dejesus
[2018-03-18 12:01] LABS: Bedside Glucose 229 mg/dL (70-110)
--- NOTE | 2018-03-18 12:13 | PCM.PN.HOSP ---
Subjective: Patient with no acute events overnight per self and per nursing report. Patient transitioned well from ICU to PCU status without issue. He does state that his dyspnea has improved but he still does have some issue with exertional attempts, specifically while ambulating to the restroom. Given debility patient with need for care home facility and inability to return to assisted living to which has been resistant but they will not accept him therefore we will continue encourage placement. Patient denies fevers, chills, nausea, emesis, abdominal pain, chest pain. Objective: Physical Examination: General: awake, alert, oriented x 3, seated upright in the bedside chair, NAD, improved appearance. Skin: normal color, turgor, no icterus, cyanosis. HEENT: AT/NC, EOMI, PERRLA, MMM. Lungs: Improved, still diminished bases, no current wheezing, rales, crackles. Heart: Regular rate and rhythm; no gallop, rub audible. Abdomen: soft, NTTP, ND, normal BS. Extremities: no cyanosis, clubbing, mild BL ankle. Neurological: patient awake, alert, oriented x 3; cognitive function intact; pupils equally reactive to light and accomodation; cranial nerves II-XII grossly normal, moving all 4 extremities, no focal deficits, strength improved, moderately globally decreased. Psychiatric: affect appears normal, no acute evidence of depressive or anxiety feelings. Vitals/I&O's: Vital Signs Temp Pulse Resp BP Pulse Ox 98.1 F 85 24 H 164/82 H 94 03/18/18 09:15 03/18/18 11:28 03/18/18 11:28 03/18/18 09:15 03/18/18 11:28 Oxygen Flow Rate (L/min) 3 Oxygen Delivery Method Nasal Cannula Weight: 195 lb 8.8 oz Body Mass Index (BMI) 29.0 Intake and Output for Last 24 Hours 03/16/18 03/17/18 03/18/18 23:59 23:59 23:59 Intake Total 908.5 / 908.5 1796 / 1796 164 / 164 Output Total 200 / 200 300 / 300 100 / 100 Balance 708.5 / 708.5 1496 / 1496 64 / 64 Microbiology Past 72 Hours 03/16/18 10:55 Mucosa - Nose Respiratory Panel (PCR) - Final 03/16/18 09:15 Urine, Clean Catch Streptococcus pneumoniae Antigen (M - Final 03/16/18 09:15 Urine, Clean Catch Legionella Antigen - Final Laboratory Results 03/17/18 17:36: POC Glucose 225 H 03/17/18 21:19: POC Glucose 249 H 03/18/18 06:51: POC Glucose 198 H 03/18/18 11:43: POC Glucose 229 H Current Medications Acetaminophen (Tylenol) 650 mg PO Q4H PRN PRN PRN Reason: FEVER Last Admin: 03/16/18 15:05 Dose: 650 mg Acetaminophen (Tylenol) 650 mg PO Q6H PRN PRN PRN Reason: Mild Pain (scale 0-3)/T>100.7 Last Admin: 03/17/18 14:59 Dose: 650 mg Al Hydroxide/Mg Hydroxide (Mylanta Ii) 30 ml PO Q6H PRN PRN PRN Reason: Gastric burning Albuterol Sulfate (Ventolin Aerosols) 2.5 mg INHALATION Q2H PRN PRN PRN Reason: SHORTNESS OF BREATH Albuterol/Ipratropium (Duoneb) 3 ml INHALATION Q4H.RT [facility] Last Admin: 03/18/18 11:28 Dose: 3 ml Amlodipine Besylate (Norvasc) 5 mg PO DAILY [facility] Last Admin: 03/18/18 09:30 Dose: 5 mg Aspirin (Aspirin, Baby) 81 mg PO DAILY@0800 [facility] Last Admin: 03/18/18 09:31 Dose: 81 mg Atorvastatin Calcium (Lipitor) 40 mg PO QHS [facility] Last Admin: 03/17/18 21:15 Dose: 40 mg Carvedilol (Coreg) 6.25 mg PO BID [facility] Last Admin: 03/18/18 09:31 Dose: 6.25 mg Chlorhexidine Gluconate () 1 each TOPICAL DAILY [facility] Last Admin: 03/18/18 09:32 Dose: Not Given Clopidogrel Bisulfate (Plavix) 75 mg PO DAILY [facility] Last Admin: 03/18/18 09:30 Dose: 75 mg Dextrose (D50w Syringe) 0 gm IV X1 PRN; Protocol PRN Reason: Hypoglycemia Donepezil HCl (Aricept) 5 mg PO QHS [facility] Last Admin: 03/17/18 21:14 Dose: 5 mg Furosemide (Lasix) 40 mg PO BID [facility] Last Admin: 03/18/18 09:31 Dose: 40 mg Glucagon () 1 mg IM .X1 PRN PRN Reason: Hypoglycemia Guaifenesin (Mucinex) 1,200 mg PO BID [facility] Last Admin: 03/18/18 09:31 Dose: 1,200 mg Heparin Sodium (Porcine) (Heparin Na) 5,000 unit SC Q8 [facility] Last Admin: 03/18/18 05:59 Dose: 5,000 u Insulin Aspart (Novolog Flexpen ([facility])) 0 units SC ACHS [facility] PRN Reason: Protocol Last Admin: 03/18/18 11:49 Dose: 6 units Insulin Detemir (Levemir ([facility])) 20 units SC 1100,2200 [facility] Last Admin: 03/18/18 11:48 Dose: 20 u Isosorbide Mononitrate (Imdur) 30 mg PO DAILY [facility] Last Admin: 03/18/18 09:31 Dose: 30 mg Levofloxacin (Levaquin Tablet) 750 mg PO Q48@0600 [facility] Stop: 03/22/18 06:01 Magnesium Hydroxide (Milk Of Magnesia) 30 ml PO DAILY PRN PRN PRN Reason: Constipation Magnesium Oxide (Mag-Ox 400) 400 mg PO DAILY [facility] Last Admin: 03/18/18 09:31 Dose: 400 mg Nitroglycerin (Nitrostat) 0.4 mg SUBLINGUAL Q5M PRN PRN Reason: Chest Pain Ondansetron HCl (Zofran) 4 mg IV Q8H PRN PRN PRN Reason: NAUSEA Pantoprazole Sodium (Protonix) 40 mg PO DAILY [facility] Last Admin: 03/18/18 09:30 Dose: 40 mg Polyethylene Glycol (Miralax) 17 gm PO DAILY [facility] Last Admin: 03/18/18 09:31 Dose: 17 gm Polysaccharide Iron Complex (Ferrex 150) 150 mg PO TIDCM [facility] Last Admin: 03/18/18 11:49 Dose: 150 mg Ranolazine (Ranexa) 500 mg PO BID [facility] Last Admin: 03/18/18 09:30 Dose: 500 mg Senna/Docusate Sodium (Senokot-S, Debbie-Colace) 1 tablet PO BID [facility] Last Admin: 03/18/18 09:30 Dose: 1 tablet Sodium Chloride () 5 - 30 ml IV UD PRN PRN Reason: SALINE FLUSH Last Admin: 03/17/18 10:26 Dose: 5 ml Medical Necessity - Tobacco Use Smoking Status: Former smoker Tobacco Use: Non-smoker Assessment/Plan The patient is a 72 y/o M w/ PMHx: Fe Deficiency Anemia, Hx GI Bleed w/ PUD, CKD stage III, Diabetes mellitus type II, Obesity, MAGDI non-compliant with CPAP, CAD s/p CABG and PCI (last 2015 [facility] main) and [place], Chronic systolic CHF w/ Ischemic Cardiomyopathy (EF 40%), HTN, HLD, Alzheimer's disease, Carotid disease s/p CEA hx, BPH who presents to the [facility] ED on 03/16/18 with acutely worsened respiratory distress starting ~ 2 hours prior to presentation, noted to have awoken him from sleep with 74% oxygenation noted per EMS, with 2 day history of dyspnea, cough. (1) Acute Hypoxic Respiratory Failure secondary to HCAP Pneumonia: CXR in the ED w/ interval development consolidative process right upper lobe, right lower lobe and left lower lobe. Admission CBC w/ WBC 11.8 with left shift-->03/17/18 CBC w/ WBC 5.6, remained afebrile. Admitted to the ICU initially, maintained on BIPAP initially with transition to NC currently, transitioned 03/17/18 to PCU without issue, continue ATC duonebs, PRN albuterol, initially treated w/ IV Zosyn and Vancomycin, negative MRSA swab-->IV zosyn only with 03/18/18 planned transition to oral levaquin regimen only with planned total 7 day course abx therapy (complete regimen 03/22/18). Unable to obtain sputum cx, negative urine antigens, negative respiratory viral panel. Bld cx x 2 obtained in the ED with NGTD. 03/18/18 CBC pending. (2) Acute kidney injury: Secondary to presentation #1. Admission BUN/Cr 66/2.61, prior baseline creatinine noted to be 1.9-2.2. Gently hydrated given CHF history, held nephrotoxic medications as able, 03/17/18 BUN/Cr 53/2.06, improved. 03/18/18 oral lasix 40 mg BID restart planned. Pending 03/18/18 BMP. (3) NSTEMI: Likely secondary to #1, #2, EKG in ED without acute evidence of ischemia w/ ST mild depression V5-V6, CXR w/ bilateral infiltrates as noted, initial trop 0.11-->1.11-->2.39-->2.92, discussed w/ Dr. Jernigan, Cardiology, lovenox therapeutic x 1 administered with noted preference to avoid heparin drip initially and eventually transitioned back to SC heparin only. Recent cardiac catheterization ~ 6 months prior, patient declined repeat catheterization and deferred any further invasive therapies. Continue w/ aggressive medical therapy with asa, plavis, BB, statin, per Cardiology recommendation added ranexa 500 mg BID. ASA, NG, morphine. Repeat ECHO pending given just > 6 months since last w/ normal LV size, EF 40%, moderate segmental systolic dysfunction, transmitral diastolic flow velocities suggestive of moderate stage II diastolic dysfunction, moderate MV insufficiency, mild TV insufficiency, compared to prior study no significant change. (4) Encephalopathy: Multifactorial, secondary to #1, #2, #3, improving in the ED on BIPAP and now returned to baseline. (5) Chronic systolic CHF w/ Ischemic Cardiomyopathy, Possible Mild Transient Pulmonary Edema secondary to Hypertension, Uncontrolled: Upon ED evaluation initially given improvement w/ BIPAP and dose IV lasix in the ED may have been decompensated at that point; however, CXR was not marked congested and patient again noted no recent weight gain, edema, orthopnea complaints w/ concurrent infiltrative process. Had held lasix upon admission secondary to TOM, now resolved, added back oral regimen. Repeat ECHO pending given just > 6 months since last w/ normal LV size, EF 40%, moderate segmental systolic dysfunction, transmitral diastolic flow velocities suggestive of moderate stage II diastolic dysfunction, moderate MV insufficiency, mild TV insufficiency, compared to prior study no significant change. Will continue asa, plavix, statin, BB, not on ACEI with CKD, added back lasix as noted. (6) Diabetes mellitus type II: Hold oral home regimen, continue home insulin regimen, allow ADA diet once clinically improved, accu checks w/ ISS. (7) CAD: s/p [place]/PCI/CABG, follows w/ Dr. Jernigan. Will continue home regimen asa, plavix, statin, BB, as noted above w/ NSTEMI acutely thus added ranexa per Cardiology recommendation. (8) Hypertension: Initially uncontrolled, improved w/ ED and interventions and following ICU transition w/ BIPAP placement w/ eventually transition to NC. Continued on home regimen including Norvasc, Coreg, isosorbide, added back oral lasix w/ hold parameters in place, PRN hydralazine. (9) Hyperlipidemia: Continue home statin regimen. (10) Chronic Fe Deficiency Anemia, Hx PUD w/ GI bleed: Admission Hgb 10.9, stable from December, 03/17/18 Hgb 9, trending, pending 03/18/18 CBC. (11) Alzheimer's Dementia with unclear behavioral disturbance: Not on regimen, at [facility], frequent orientation. (12) Carotid Disease: s/p CEA history. (13) GERD: PPI. (14) Hypokalemia: Admission K+ 3.3, supplementation given, improved, pending 03/18/18 BMP. (15) MAGDI: Continue w/ bilevel therapy with a pressure setting of 15/11 cm of water with humidification per Pulmonary recommendation. (16) DVT prophylaxis: SCDs, lovenox therapeutic x 1 administered w/ NSTEMI per Cardiology request, now transitioned back to SC heparin w/ close monitoring. (17) CODE status: DNR-CCA, no intubation status. Code Visit Inpatient E&M: 45471 Subs Hosp L2
--- NOTE | 2018-03-18 12:23 | PN_ITS ---
Subjective: Patient with no acute events overnight per self and per nursing report. Patient transitioned well from ICU to PCU status without issue. He does state that his dyspnea has improved but he still does have some issue with exertional attempts, specifically while ambulating to the restroom. Given debility patient with need for fci facility and inability to return to assisted living to which has been resistant but they will not accept him therefore we will continue encourage placement. Patient denies fevers, chills, nausea, emesis, abdominal pain, chest pain. Objective: Physical Examination: General: awake, alert, oriented x 3, seated upright in the bedside chair, NAD, improved appearance. Skin: normal color, turgor, no icterus, cyanosis. HEENT: AT/NC, EOMI, PERRLA, MMM. Lungs: Improved, still diminished bases, no current wheezing, rales, crackles. Heart: Regular rate and rhythm; no gallop, rub audible. Abdomen: soft, NTTP, ND, normal BS. Extremities: no cyanosis, clubbing, mild BL ankle. Neurological: patient awake, alert, oriented x 3; cognitive function intact; pupils equally reactive to light and accomodation; cranial nerves II-XII grossly normal, moving all 4 extremities, no focal deficits, strength improved, moderately globally decreased. Psychiatric: affect appears normal, no acute evidence of depressive or anxiety feelings. Vitals/I&O's: Vital Signs Temp Pulse Resp BP Pulse Ox 98.1 F 85 24 H 164/82 H 94 03/18/18 09:15 03/18/18 11:28 03/18/18 11:28 03/18/18 09:15 03/18/18 11:28 Oxygen Flow Rate (L/min) 3 Oxygen Delivery Method Nasal Cannula Weight: 195 lb 8.8 oz Body Mass Index (BMI) 29.0 Intake and Output for Last 24 Hours 03/16/18 03/17/18 03/18/18 23:59 23:59 23:59 Intake Total 908.5 / 908.5 1796 / 1796 164 / 164 Output Total 200 / 200 300 / 300 100 / 100 Balance 708.5 / 708.5 1496 / 1496 64 / 64 Microbiology Past 72 Hours 03/16/18 10:55 Mucosa - Nose Respiratory Panel (PCR) - Final 03/16/18 09:15 Urine, Clean Catch Streptococcus pneumoniae Antigen (M - Final 03/16/18 09:15 Urine, Clean Catch Legionella Antigen - Final Laboratory Results 03/17/18 17:36: POC Glucose 225 H 03/17/18 21:19: POC Glucose 249 H 03/18/18 06:51: POC Glucose 198 H 03/18/18 11:43: POC Glucose 229 H Current Medications Acetaminophen (Tylenol) 650 mg PO Q4H PRN PRN PRN Reason: FEVER Last Admin: 03/16/18 15:05 Dose: 650 mg Acetaminophen (Tylenol) 650 mg PO Q6H PRN PRN PRN Reason: Mild Pain (scale 0-3)/T>100.7 Last Admin: 03/17/18 14:59 Dose: 650 mg Al Hydroxide/Mg Hydroxide (Mylanta Ii) 30 ml PO Q6H PRN PRN PRN Reason: Gastric burning Albuterol Sulfate (Ventolin Aerosols) 2.5 mg INHALATION Q2H PRN PRN PRN Reason: SHORTNESS OF BREATH Albuterol/Ipratropium (Duoneb) 3 ml INHALATION Q4H.RT [facility] Last Admin: 03/18/18 11:28 Dose: 3 ml Amlodipine Besylate (Norvasc) 5 mg PO DAILY [facility] Last Admin: 03/18/18 09:30 Dose: 5 mg Aspirin (Aspirin, Baby) 81 mg PO DAILY@0800 [facility] Last Admin: 03/18/18 09:31 Dose: 81 mg Atorvastatin Calcium (Lipitor) 40 mg PO QHS [facility] Last Admin: 03/17/18 21:15 Dose: 40 mg Carvedilol (Coreg) 6.25 mg PO BID [facility] Last Admin: 03/18/18 09:31 Dose: 6.25 mg Chlorhexidine Gluconate () 1 each TOPICAL DAILY [facility] Last Admin: 03/18/18 09:32 Dose: Not Given Clopidogrel Bisulfate (Plavix) 75 mg PO DAILY [facility] Last Admin: 03/18/18 09:30 Dose: 75 mg Dextrose (D50w Syringe) 0 gm IV X1 PRN; Protocol PRN Reason: Hypoglycemia Donepezil HCl (Aricept) 5 mg PO QHS [facility] Last Admin: 03/17/18 21:14 Dose: 5 mg Furosemide (Lasix) 40 mg PO BID [facility] Last Admin: 03/18/18 09:31 Dose: 40 mg Glucagon () 1 mg IM .X1 PRN PRN Reason: Hypoglycemia Guaifenesin (Mucinex) 1,200 mg PO BID [facility] Last Admin: 03/18/18 09:31 Dose: 1,200 mg Heparin Sodium (Porcine) (Heparin Na) 5,000 unit SC Q8 [facility] Last Admin: 03/18/18 05:59 Dose: 5,000 u Insulin Aspart (Novolog Flexpen ([facility])) 0 units SC ACHS [facility] PRN Reason: Protocol Last Admin: 03/18/18 11:49 Dose: 6 units Insulin Detemir (Levemir ([facility])) 20 units SC 1100,2200 [facility] Last Admin: 03/18/18 11:48 Dose: 20 u Isosorbide Mononitrate (Imdur) 30 mg PO DAILY [facility] Last Admin: 03/18/18 09:31 Dose: 30 mg Levofloxacin (Levaquin Tablet) 750 mg PO Q48@0600 [facility] Stop: 03/22/18 06:01 Magnesium Hydroxide (Milk Of Magnesia) 30 ml PO DAILY PRN PRN PRN Reason: Constipation Magnesium Oxide (Mag-Ox 400) 400 mg PO DAILY [facility] Last Admin: 03/18/18 09:31 Dose: 400 mg Nitroglycerin (Nitrostat) 0.4 mg SUBLINGUAL Q5M PRN PRN Reason: Chest Pain Ondansetron HCl (Zofran) 4 mg IV Q8H PRN PRN PRN Reason: NAUSEA Pantoprazole Sodium (Protonix) 40 mg PO DAILY [facility] Last Admin: 03/18/18 09:30 Dose: 40 mg Polyethylene Glycol (Miralax) 17 gm PO DAILY [facility] Last Admin: 03/18/18 09:31 Dose: 17 gm Polysaccharide Iron Complex (Ferrex 150) 150 mg PO TIDCM [facility] Last Admin: 03/18/18 11:49 Dose: 150 mg Ranolazine (Ranexa) 500 mg PO BID [facility] Last Admin: 03/18/18 09:30 Dose: 500 mg Senna/Docusate Sodium (Senokot-S, Debbie-Colace) 1 tablet PO BID [facility] Last Admin: 03/18/18 09:30 Dose: 1 tablet Sodium Chloride () 5 - 30 ml IV UD PRN PRN Reason: SALINE FLUSH Last Admin: 03/17/18 10:26 Dose: 5 ml Medical Necessity - Tobacco Use Smoking Status: Former smoker Tobacco Use: Non-smoker Assessment/Plan The patient is a 72 y/o M w/ PMHx: Fe Deficiency Anemia, Hx GI Bleed w/ PUD, CKD stage III, Diabetes mellitus type II, Obesity, MAGDI non-compliant with CPAP, CAD s/p CABG and PCI (last 2015 [facility] main) and NC, Chronic systolic CHF w/ Ischemic Cardiomyopathy (EF 40%), HTN, HLD, Alzheimer's disease, Carotid disease s/p CEA hx, BPH who presents to the [facility] ED on 03/16/18 with acutely worsened respiratory distress starting ~ 2 hours prior to presentation, noted to have awoken him from sleep with 74% oxygenation noted per EMS, with 2 day history of dyspnea, cough. (1) Acute Hypoxic Respiratory Failure secondary to HCAP Pneumonia: CXR in the ED w/ interval development consolidative process right upper lobe, right lower lobe and left lower lobe. Admission CBC w/ WBC 11.8 with left shift-->03/17/18 CBC w/ WBC 5.6, remained afebrile. Admitted to the ICU initially, maintained on BIPAP initially with transition to NC currently, transitioned 03/17/18 to PCU without issue, continue ATC duonebs, PRN albuterol, initially treated w/ IV Zosyn and Vancomycin, negative MRSA swab-->IV zosyn only with 03/18/18 planned transition to oral levaquin regimen only with planned total 7 day course abx therapy (complete regimen 03/22/18). Unable to obtain sputum cx, negative urine antigens, negative respiratory viral panel. Bld cx x 2 obtained in the ED with NGTD. 03/18/18 CBC pending. (2) Acute kidney injury: Secondary to presentation #1. Admission BUN/Cr 66/2.61 , prior baseline creatinine noted to be 1.9-2.2. Gently hydrated given CHF history, held nephrotoxic medications as able, 03/17/18 BUN/Cr 53/2.06, improved. 03/18/18 oral lasix 40 mg BID restart planned. Pending 03/18/18 BMP. (3) NSTEMI: Likely secondary to #1, #2, EKG in ED without acute evidence of ischemia w/ ST mild depression V5-V6, CXR w/ bilateral infiltrates as noted, initial trop 0.11-->1.11-->2.39-->2.92, discussed w/ Dr. Jernigan, Cardiology, lovenox therapeutic x 1 administered with noted preference to avoid heparin drip initially and eventually transitioned back to SC heparin only. Recent cardiac catheterization ~ 6 months prior, patient declined repeat catheterization and deferred any further invasive therapies. Continue w/ aggressive medical therapy with asa, plavis, BB, statin, per Cardiology recommendation added ranexa 500 mg BID. ASA, NG, morphine. Repeat ECHO pending given just > 6 months since last w/ normal LV size, EF 40%, moderate segmental systolic dysfunction, transmitral diastolic flow velocities suggestive of moderate stage II diastolic dysfunction, moderate MV insufficiency, mild TV insufficiency, compared to prior study no significant change. (4) Encephalopathy: Multifactorial, secondary to #1, #2, #3, improving in the ED on BIPAP and now returned to baseline. (5) Chronic systolic CHF w/ Ischemic Cardiomyopathy, Possible Mild Transient Pulmonary Edema secondary to Hypertension, Uncontrolled: Upon ED evaluation initially given improvement w/ BIPAP and dose IV lasix in the ED may have been decompensated at that point; however, CXR was not marked congested and patient again noted no recent weight gain, edema, orthopnea complaints w/ concurrent infiltrative process. Had held lasix upon admission secondary to TOM, now resolved, added back oral regimen. Repeat ECHO pending given just > 6 months since last w/ normal LV size, EF 40%, moderate segmental systolic dysfunction, transmitral diastolic flow velocities suggestive of moderate stage II diastolic dysfunction, moderate MV insufficiency, mild TV insufficiency, compared to prior study no significant change. Will continue asa, plavix, statin, BB, not on ACEI with CKD, added back lasix as noted. (6) Diabetes mellitus type II: Hold oral home regimen, continue home insulin regimen, allow ADA diet once clinically improved, accu checks w/ ISS. (7) CAD: s/p NC/PCI/CABG, follows w/ Dr. Jernigan. Will continue home regimen asa, plavix, statin, BB, as noted above w/ NSTEMI acutely thus added ranexa per Cardiology recommendation. (8) Hypertension: Initially uncontrolled, improved w/ ED and interventions and following ICU transition w/ BIPAP placement w/ eventually transition to NC. Continued on home regimen including Norvasc, Coreg, isosorbide, added back oral lasix w/ hold parameters in place, PRN hydralazine. (9) Hyperlipidemia: Continue home statin regimen. (10) Chronic Fe Deficiency Anemia, Hx PUD w/ GI bleed: Admission Hgb 10.9, stable from December, 03/17/18 Hgb 9, trending, pending 03/18/18 CBC. (11) Alzheimer's Dementia with unclear behavioral disturbance: Not on regimen, at [facility], frequent orientation. (12) Carotid Disease: s/p CEA history. (13) GERD: PPI. (14) Hypokalemia: Admission K+ 3.3, supplementation given, improved, pending BMP. (15) MAGDI: Continue w/ bilevel therapy with a pressure setting of 15/11 cm of water with humidification per Pulmonary recommendation. (16) DVT prophylaxis: SCDs, lovenox therapeutic x 1 administered w/ NSTEMI per Cardiology request, now transitioned back to SC heparin w/ close monitoring. (17) CODE status: DNR-CCA, no intubation status. Code Visit Inpatient E&M: 93603 Subs Hosp L2
[2018-03-18 12:48] LABS: Absolute Lymphocyte Count 0.81 X10^3/ul (0.83-4.51); Basophil# 0.02 X10^3/uL; Basophil% 0.3 % (0-1); Hematocrit 28.3 % (40-54); Hemoglobin 9.1 g/dl (13.0-16.5); Lymphocyte # 0.81 X10^3/ul (4.0); Lymphocyte % 12.3 % (19-41); Mean Corp Hgb Conc 32.2 g/gl (32-36); Mean Corpuscular Hgb 25.4 pg (27.0-32.0); Mean Corpuscular Volume 79.1 fL (80-94); Mean Platelet Vol. 8.7 fl (6.2-12.0); Monocyte# 0.54 X10^3/uL; Monocyte% 8.2 % (0-10); Neutrophil # 5.02 X10^3/uL (2.7-7.7); Neutrophil % 76.2 % (47-70); Platelet Count 161 K/mm3 (150-450); RBC Distribution Width CV 16.1 % (11.6-14.6); RBC Distribution Width SD 46.6 fl (35.1-43.9); Red Blood Count 3.58 M/mm3 (4.6-6.2); White Blood Count 6.6 K/mm3 (4.4-11.0)
[2018-03-18 12:50] LABS: POSITIVE COUNT NO; POSITIVE DIFFERENTIAL NO; POSITIVE MORPHOLOGY NO
[2018-03-18 13:00] LABS: Anion Gap 7 (5-15); BUN 66 mg/dL (7-18); BUN/Creat Ratio 25.7 RATIO (10-20); Calcium,Total 9.1 mg/dL (8.5-10.1); Chloride 104 mmol/L (98-107); Creatinine, Serum 2.57 mg/dL (0.70-1.30); EST Glomerular Filtration Rate 26 mL/min (>60); Est Glom Filt Rate - Afr Amer 32 mL/min (>60); Estimated Creatinine Clearance 24.77 ml/min; Glucose 205 mg/dL (74-106); Potassium 4.5 mmol/L (3.5-5.1); Sodium Level 138 mmol/L (136-145)
[2018-03-18 16:55] LABS: Bedside Glucose 167 mg/dL (70-110)
[2018-03-18] MEDS: Acetaminophen 325 MG Tablet 650 MG PO (19:04)
[2018-03-18 21:55] LABS: Bedside Glucose 221 mg/dL (70-110)
[2018-03-18] MEDS: Donepezil HCl 5 MG Tablet PO (21:58)
[2018-03-18] MEDS: Atorvastatin Calcium 40 MG Tablet PO (21:58)
[2018-03-19] VITALS (22 sets, daily range): BP systolic 132–152; BP diastolic 60–78; PULSE 62–73; RESP 10–22; TEMP 36.5–36.9; O2SAT 93–97
[2018-03-19] MEDS: Ipratropium/Albuterol Sulfate 3 ML AMPUL.NEB INHALATION ×6 (02:54→22:18)
[2018-03-19] MEDS: Heparin Injection (Vial) 5,000 UNIT/ML VIAL 5000 UNIT SC ×2 (05:05→13:12)
[2018-03-19 05:56] LABS: Bedside Glucose 141 mg/dL (70-110)
[2018-03-19 06:19] LABS: Absolute Lymphocyte Count 0.77 X10^3/ul (0.83-4.51); Absolute Neutrophil Count 3.7 X10^3/uL (2.0-7.7); Basophil# 0.02 X10^3/uL; Basophil% 0.4 % (0-1); Eosinophil# 0.23 X10^3/uL; Eosinophils% 4.4 % (0-5); Hematocrit 27.7 % (40-54); Hemoglobin 8.9 g/dl (13.0-16.5); Lymphocyte # 0.77 X10^3/ul (4.0); Lymphocyte % 14.6 % (19-41); Mean Corp Hgb Conc 32.1 g/gl (32-36); Mean Corpuscular Hgb 25.7 pg (27.0-32.0); Mean Corpuscular Volume 80.1 fL (80-94); Mean Platelet Vol. 9.3 fl (6.2-12.0); Monocyte# 0.52 X10^3/uL; Monocyte% 9.9 % (0-10); Neutrophil # 3.72 X10^3/uL (2.7-7.7); Neutrophil % 70.5 % (47-70); Platelet Count 187 K/mm3 (150-450); RBC Distribution Width SD 45.1 fl (35.1-43.9); Red Blood Count 3.46 M/mm3 (4.6-6.2); White Blood Count 5.3 K/mm3 (4.4-11.0)
[2018-03-19 06:31] LABS: POSITIVE COUNT NO; POSITIVE DIFFERENTIAL NO; POSITIVE MORPHOLOGY NO
[2018-03-19 06:35] LABS: Anion Gap 9 (5-15); BUN 66 mg/dL (7-18); BUN/Creat Ratio 24.4 RATIO (10-20); Calcium,Total 9.1 mg/dL (8.5-10.1); Chloride 106 mmol/L (98-107); EST Glomerular Filtration Rate 25 mL/min (>60); Est Glom Filt Rate - Afr Amer 30 mL/min (>60); Estimated Creatinine Clearance 23.57 ml/min; Glucose 142 mg/dL (74-106); Potassium 4.5 mmol/L (3.5-5.1); Sodium Level 142 mmol/L (136-145)
[2018-03-19 07:01] LABS: Bedside Glucose 188 mg/dL (70-110)
--- NOTE | 2018-03-19 07:54 | PN.CARD_ITS ---
Subjectve: Patient seen and evaluated. Appears to be breathing better. Objective: Vital Signs Temp Pulse Resp BP Pulse Ox 98.0 F 68 20 H 132/60 H 94 03/19/18 04:20 03/19/18 06:59 03/19/18 06:47 03/19/18 04:20 03/19/18 06:47 Oxygen Flow Rate (L/min) 2 Oxygen Delivery Method Nasal Cannula Weight: 190 lb 4.143 oz Body Mass Index (BMI) 29.0 Intake and Output for Last 24 Hours 03/17/18 03/18/18 03/19/18 23:59 23:59 23:59 Intake Total 1796 / 1796 1345 / 1345 200 / 200 Output Total 300 / 300 400 / 400 375 / 375 Balance 1496 / 1496 945 / 945 -175 / -175 General: Awake, Alert, Oriented x 3 HEENT: PERRL, EOMI, Sclera Non Icteric Neck: Supple, Good ROM, No Lymph Node Enlargement Lungs: Diminished Farhan Bases Cardiovascular: Regular Rhythm, Normal S1, Normal S2, No Murmurs, No Rubs, No Gallops Vascular: No Carotid Bruits, Normal Femoral Pulses, Normal Radial Pulses, Normal Dorsalis Pedal Pulse, Normal Posterior Tibial Pulses Abdomen: Bowel Sounds Present, Soft, Non Tender, No HSM, No Organomegaly Extremities: No Cyanosis, No Clubbing, No edema Neurological: No Focal Motor or Sensory Deficit 03/18/18 12:30: WBC 6.6, RBC 3.58 L, Hgb 9.1 L, Hct 28.3 L, MCV 79.1 L, MCH 25.4 L, MCHC 32.2, RDW 16.1 H, RDW Differential 46.6 H, Plt Count 161, MPV 8.7, Immature Gran % (Auto) 0.000, Neut % (Auto) 76.2 H, Lymph % (Auto) 12.3 L, [place] % (Auto) 8.2, Eos % (Auto) 3.0, Baso % (Auto) 0.3, Absolute Neuts (auto) 5.0, Total Counted Not Reportable 03/18/18 12:30: Sodium 138, Potassium 4.5, Chloride 104, Carbon Dioxide 27.0, Anion Gap 7, BUN 66 H, Creatinine 2.57 H, Est GFR (MDRD) Af Amer 32 L, Est GFR ( MDRD) Non-Af 26 L, BUN/Creatinine Ratio 25.7 H, Glucose 205 H, Calcium 9.1 03/19/18 05:30: WBC 5.3, RBC 3.46 L, Hgb 8.9 L, Hct 27.7 L, MCV 80.1, MCH 25.7 L , MCHC 32.1, RDW 16.0 H, RDW Differential 45.1 H, Plt Count 187, MPV 9.3, Immature Gran % (Auto) 0.200, Neut % (Auto) 70.5 H, Lymph % (Auto) 14.6 L, [place] % (Auto) 9.9, Eos % (Auto) 4.4, Baso % (Auto) 0.4, Absolute Neuts (auto) 3.7, Total Counted Not Reportable 03/19/18 05:30: Sodium 142, Potassium 4.5, Chloride 106, Carbon Dioxide 27.0, Anion Gap 9, BUN 66 H, Creatinine 2.70 H, Est GFR (MDRD) Af Amer 30 L, Est GFR ( MDRD) Non-Af 25 L, BUN/Creatinine Ratio 24.4 H, Glucose 142 H, Calcium 9.1 Rhythm: EKG: ECHO: Stress Test: Cardiac Cath: PCI: CT Surgery: Holter monitor: EPS: PPM: CXR: Chest CT Scan: Medical Necessity - Tobacco Use Smoking Status: Former smoker Tobacco Use: Non-smoker Assessment/Plan 1. Non-ST elevation myocardial infarction Patient presents with shortness of breath epigastric discomfort and is noted to have a non-ST elevation myocardial infarction. As you know he underwent angioplasty and stenting of the circumflex artery approximately 6 months ago. I did discuss with him again about the possibility repeating the above. At this time he is not interested in pursuing any further invasive therapy. I also did suggest to him that with his renal dysfunction there is a chance that this could worsen. At this particular time will continue with aggressive medical therapy utilizing the beta-jesus and clopidogrel aspirin and statin and I will suggest the addition of Ranexa. Further recommendations will be made depending on his clinical course. His segmental wall motion abnormalities at this time did not appear to be any different from June 2017. He has had no recurrent chest discomfort since admission. 2. Hypertension. The patient appears to have presented with accelerated hypertension which is doing much better now. The plan will be to continue the same medications. It is likely that this may have contributed to his marked shortness of breath. 3. Congestive heart failure acute diastolic. The patient presented with shortness of breath and markedly elevated blood pressure. I suspect that this was a hypertensive emergency with diastolic heart failure. He did improve rapidly with BiPAP treatment and lowering of his blood pressure. His left ventricular ejection fraction is estimated to be 40% with segmental wall motion abnormalities. He certainly did develop coronary ischemia with a non-ST elevation myocardial infarction. We will have to discuss whether to reevaluate his coronary anatomy. He continues to require some BiPAP intermittently and would adjust his diuretic therapy. 4. Carotid artery disease He does have evidence of carotid artery disease and had a cerebrovascular accident previously. He will continue to be followed carefully on aspirin and clopidogrel. 5. Chronic renal dysfunction He does have chronic renal dysfunction and will continue to watch him carefully. This appears to be waxing and waning. I sent the discussion at this morning he still does not want to pursue any invasive therapy. Thank you for allowing me to participate in the care of your patient. Please don't hesitate to call if any issues arise
[2018-03-19] MEDS: Aspirin 81 MG TAB.CHEW PO (08:26)
[2018-03-19] MEDS: Iron Polysaccharide Complex 150 MG CAPSULE PO ×3 (08:27→17:13)
--- NOTE | 2018-03-19 08:42 | PCM.PROGNOTE ---
Subjective: The patient was seen and examined. He is sitting up in the chair in no acute distress. Appears much more relaxed this morning. Reports he feels much better today. He denies any shortness of breath. He does get somewhat dyspneic on exertion, however this is also improved. He has not required BiPAP during the day today. Patient maintaining appropriate saturations on 2 L of oxygen supplementation. He remains afebrile and hemodynamically stable. Objective: Recent lab and culture data reviewed. Patient remains afebrile and hemodynamically stable. Renal function continues to worsen. Blood culture showing no growth ?48 hours. Urine strep/Legionella antigens were negative. Viral respiratory panel negative. - Physical Exam General: Alert, Oriented x3, Cooperative, No apparent distress, - - No conversational dyspnea HEENT: Atraumatic, Normocephalic Oral: Moist Mucosa Neck: Supple, No Nodes, Trachea Midline Lungs: Diminished - R>L, no rhonchi, rales, or wheezing Cardiovascular: Regular rate, Regular Rhythm, Normal S1, Normal S2, No murmurs, No rub noted, No Gallop Abdomen: Bowel Sounds Present, Soft, Non Tender, Non-Distended Extremities: No clubbing, No cyanosis, No edema Skin: - - no changes Lymphatic: - - no adenopathy Neurological: Neuro grossly intact Psych/Mental Status: Alert and oriented to time, place, person, mood and affect Vital Signs Temp Pulse Resp BP Pulse Ox 98.0 F 68 20 H 132/60 H 94 03/19/18 04:20 03/19/18 06:59 03/19/18 06:47 03/19/18 04:20 03/19/18 06:47 Oxygen Flow Rate (L/min) 2 Oxygen Delivery Method Nasal Cannula Weight: 190 lb 4.143 oz Body Mass Index (BMI) 29.0 Intake and Output for Last 24 Hours 03/17/18 03/18/18 03/19/18 23:59 23:59 23:59 Intake Total 1796 / 1796 1345 / 1345 200 / 200 Output Total 300 / 300 400 / 400 375 / 375 Balance 1496 / 1496 945 / 945 -175 / -175 Microbiology Past 72 Hours 03/16/18 10:55 Respiratory Panel (PCR) - Final Mucosa - Nose 03/16/18 09:15 Streptococcus pneumoniae Antigen (M - Final Urine, Clean Catch 03/16/18 09:15 Legionella Antigen - Final Urine, Clean Catch Laboratory Tests Past 24 Hrs 03/18/18 03/18/18 03/19/18 12:30 12:30 05:30 WBC 6.6 5.3 RBC 3.58 L 3.46 L Hgb 9.1 L 8.9 L Hct 28.3 L 27.7 L MCV 79.1 L 80.1 MCH 25.4 L 25.7 L MCHC 32.2 32.1 RDW 16.1 H 16.0 H RDW Differential 46.6 H 45.1 H Plt Count 161 187 MPV 8.7 9.3 Immature Gran % (Auto) 0.000 0.200 Neut % (Auto) 76.2 H 70.5 H Lymph % (Auto) 12.3 L 14.6 L [place] % (Auto) 8.2 9.9 Eos % (Auto) 3.0 4.4 Baso % (Auto) 0.3 0.4 Absolute Neuts (auto) 5.0 3.7 Absolute Lymphs (auto) 0.81 L 0.77 L Total Counted Not Reportable Not Reportable Sodium 138 Potassium 4.5 Chloride 104 Carbon Dioxide 27.0 Anion Gap 7 BUN 66 H Creatinine 2.57 H Estim Creat Clear Calc 24.77 Est GFR (MDRD) Af Amer 32 L Est GFR (MDRD) Non-Af 26 L BUN/Creatinine Ratio 25.7 H Glucose 205 H Calcium 9.1 03/19/18 05:30 WBC RBC Hgb Hct MCV MCH MCHC RDW RDW Differential Plt Count MPV Immature Gran % (Auto) Neut % (Auto) Lymph % (Auto) [place] % (Auto) Eos % (Auto) Baso % (Auto) Absolute Neuts (auto) Absolute Lymphs (auto) Total Counted Sodium 142 Potassium 4.5 Chloride 106 Carbon Dioxide 27.0 Anion Gap 9 BUN 66 H Creatinine 2.70 H Estim Creat Clear Calc 23.57 Est GFR (MDRD) Af Amer 30 L Est GFR (MDRD) Non-Af 25 L BUN/Creatinine Ratio 24.4 H Glucose 142 H Calcium 9.1 POC Glucose 03/19/18 03/19/18 03/18/18 06:56 05:49 21:45 POC Glucose 188 H 141 H 221 H 03/18/18 03/18/18 16:44 11:43 POC Glucose 167 H 229 H Medical Necessity - Tobacco Use Smoking Status: Former smoker Tobacco Use: Non-smoker Assessment/Plan RECOMMENDATIONS: 1. Continue Levaquin for 7 day course, transition to oral today 2. Wean supplemental oxygen to maintain saturations at or above 90% 3. Continue home antihypertensive regimen 4. Continue Levemir and sliding scale insulin coverage, adjust as indicated 5. Empiric BiPAP utilization 15/11 cm of water nightly 6. Mobilize patient as tolerated. 7. Okay to discharge to TCU from pulmonary perspective IMPRESSIONS: 1. Acute hypoxemic respiratory failure secondary to healthcare associated pneumonia Continue antibiotics as ordered. The patient has been weaned from noninvasive positive pressure ventilation. His supplemental oxygen will be weaned to maintain oxygen saturations at or above 90%. Although the patient's accelerated blood pressure on presentation may have led to a mild degree of pulmonary vascular congestion, his plain film chest imaging did reveal a right-sided consolidative process. Therefore, recommend completing a 7 day treatment course of antibiotics. Transition to p.o. Levaquin today. 2. Acute on chronic renal insufficiency Improved. Unclear etiology. We will continue to monitor urine output. No indication for renal replacement therapy currently. Slow reintroduction of diuretics indicated. 3. Troponin elevation/known coronary artery disease/chronic systolic heart failure/hypertension Potentially related to demand ischemia in the setting of #1. Cardiology is following. Continue outpatient antihypertensive regimen per cardiology recommendations. 4. Personal history of obstructive sleep apnea The patient is noncompliant with the use of nocturnal noninvasive positive pressure ventilation. His last sleep study indicated a need for bilevel therapy at a pressure setting of 15/11 cm of water. Recommend empiric utilization while admitted to the hospital on a nightly basis. 5. Hyperlipidemia/iron deficiency anemia/GERD/Alzheimer's dementia/diabetes Complicates care, management, recovery and prognosis. Continue Levemir and sliding scale insulin coverage. Continue PT/OT. Plan for discharge to TCU. This note was generated with [employer] software. It may contain incorrect words, spelling, and punctuation that were not noted in checking the note before signing.
[2018-03-19] MEDS: Pantoprazole Sodium 40 MG Tablet PO (09:04)
[2018-03-19] MEDS: guaiFENesin 1,200 MG Tablet 1200 MG PO ×2 (09:04→22:29)
[2018-03-19] MEDS: Magnesium Oxide 400 MG Tablet PO (09:04)
[2018-03-19] MEDS: amLODIPine 5 MG Tablet PO (09:04)
[2018-03-19] MEDS: Clopidogrel Bisulfate 75 MG Tablet PO (09:04)
[2018-03-19] MEDS: Isosorbide Mononitrate 30 MG Tablet PO (09:05)
[2018-03-19] MEDS: Carvedilol 6.25 MG Tablet PO ×2 (09:05→22:29)
[2018-03-19] MEDS: Ranolazine 500 MG Tablet PO ×2 (09:05→22:29)
[2018-03-19] MEDS: Senna/Docusate Sodium 1 Tablet PO ×2 (09:06→22:29)
[2018-03-19] MEDS: Furosemide 40 MG Tablet PO (09:06)
[2018-03-19 11:31] LABS: Bedside Glucose 297 mg/dL (70-110)
--- NOTE | 2018-03-19 11:48 | PCM.PN.HOSP ---
Subjective: Patient with no acute events overnight per self and per nursing report. Patient continues to improve, breathing better, less exertional dyspnea, notes eager for transition to next phase of care with pending TCU insurance precertification. Patient denies fevers, chills, nausea, emesis, abdominal pain, chest pain or dyspnea. Objective: Physical Examination: General: awake, alert, oriented x 3, seated upright in the bedside chair, NAD. Skin: normal color, turgor, no icterus, cyanosis. HEENT: AT/NC, EOMI, PERRLA, MMM. Lungs: Improved, still diminished bases, no current wheezing, rales, crackles. Heart: Regular rate and rhythm; no gallop, rub audible. Abdomen: soft, NTTP, ND, normal BS. Extremities: no cyanosis, clubbing, mild BL ankle. Neurological: patient awake, alert, oriented x 3; cognitive function intact; pupils equally reactive to light and accomodation; cranial nerves II-XII grossly normal, moving all 4 extremities, no focal deficits, strength improved, moderately globally decreased. Psychiatric: affect appears normal, no acute evidence of depressive or anxiety feelings. Vitals/I&O's: Vital Signs Temp Pulse Resp BP Pulse Ox 98.5 F 73 18 152/77 H 94 03/19/18 10:15 03/19/18 11:00 03/19/18 10:15 03/19/18 10:15 03/19/18 10:15 Oxygen Flow Rate (L/min) 2 Oxygen Delivery Method Nasal Cannula Weight: 190 lb 4.143 oz Body Mass Index (BMI) 29.0 Intake and Output for Last 24 Hours 03/17/18 03/18/18 03/19/18 23:59 23:59 23:59 Intake Total 1796 / 1796 1345 / 1345 440 / 440 Output Total 300 / 300 400 / 400 475 / 475 Balance 1496 / 1496 945 / 945 -35 / -35 Microbiology Past 72 Hours 03/16/18 10:55 Mucosa - Nose Respiratory Panel (PCR) - Final 03/16/18 09:15 Urine, Clean Catch Streptococcus pneumoniae Antigen (M - Final 03/16/18 09:15 Urine, Clean Catch Legionella Antigen - Final Laboratory Results 03/18/18 11:43: POC Glucose 229 H 03/18/18 12:30: WBC 6.6, RBC 3.58 L, Hgb 9.1 L, Hct 28.3 L, MCV 79.1 L, MCH 25.4 L, MCHC 32.2, RDW 16.1 H, RDW Differential 46.6 H, Plt Count 161, MPV 8.7, Immature Gran % (Auto) 0.000, Neut % (Auto) 76.2 H, Lymph % (Auto) 12.3 L, Cassia % (Auto) 8.2, Eos % (Auto) 3.0, Baso % (Auto) 0.3, Absolute Neuts (auto) 5.0, Absolute Lymphs (auto) 0.81 L, Total Counted Not Reportable 03/18/18 12:30: Sodium 138, Potassium 4.5, Chloride 104, Carbon Dioxide 27.0, Anion Gap 7, BUN 66 H, Creatinine 2.57 H, Estim Creat Clear Calc 24.77, Est GFR (MDRD) Af Amer 32 L, Est GFR (MDRD) Non-Af 26 L, BUN/Creatinine Ratio 25.7 H, Glucose 205 H, Calcium 9.1 03/18/18 16:44: POC Glucose 167 H 03/18/18 21:45: POC Glucose 221 H 03/19/18 05:30: WBC 5.3, RBC 3.46 L, Hgb 8.9 L, Hct 27.7 L, MCV 80.1, MCH 25.7 L, MCHC 32.1, RDW 16.0 H, RDW Differential 45.1 H, Plt Count 187, MPV 9.3, Immature Gran % (Auto) 0.200, Neut % (Auto) 70.5 H, Lymph % (Auto) 14.6 L, Cassia % (Auto) 9.9, Eos % (Auto) 4.4, Baso % (Auto) 0.4, Absolute Neuts (auto) 3.7, Absolute Lymphs (auto) 0.77 L, Total Counted Not Reportable 03/19/18 05:30: Sodium 142, Potassium 4.5, Chloride 106, Carbon Dioxide 27.0, Anion Gap 9, BUN 66 H, Creatinine 2.70 H, Estim Creat Clear Calc 23.57, Est GFR (MDRD) Af Amer 30 L, Est GFR (MDRD) Non-Af 25 L, BUN/Creatinine Ratio 24.4 H, Glucose 142 H, Calcium 9.1 03/19/18 05:49: POC Glucose 141 H 03/19/18 06:56: POC Glucose 188 H 03/19/18 11:19: POC Glucose 297 H Current Medications Acetaminophen (Tylenol) 650 mg PO Q4H PRN PRN PRN Reason: FEVER Last Admin: 03/16/18 15:05 Dose: 650 mg Acetaminophen (Tylenol) 650 mg PO Q6H PRN PRN PRN Reason: Mild Pain (scale 0-3)/T>100.7 Last Admin: 03/18/18 19:04 Dose: 650 mg Al Hydroxide/Mg Hydroxide (Mylanta Ii) 30 ml PO Q6H PRN PRN PRN Reason: Gastric burning Albuterol Sulfate (Ventolin Aerosols) 2.5 mg INHALATION Q2H PRN PRN PRN Reason: SHORTNESS OF BREATH Albuterol/Ipratropium (Duoneb) 3 ml INHALATION Q4H.RT [facility] [place] Last Admin: 03/19/18 10:12 Dose: 3 ml Amlodipine Besylate (Norvasc) 5 mg PO DAILY [facility] [place] Last Admin: 03/19/18 09:04 Dose: 5 mg Aspirin (Aspirin, Baby) 81 mg PO DAILY@0800 [facility] Last Admin: 03/19/18 08:26 Dose: 81 mg Atorvastatin Calcium (Lipitor) 40 mg PO QHS [facility] [place] Last Admin: 03/18/18 21:58 Dose: 40 mg Carvedilol (Coreg) 6.25 mg PO BID [facility] [place] Last Admin: 03/19/18 09:05 Dose: 6.25 mg Chlorhexidine Gluconate () 1 each TOPICAL DAILY [facility] [place] Last Admin: 03/19/18 07:47 Dose: Not Given Clopidogrel Bisulfate (Plavix) 75 mg PO DAILY [facility] [place] Last Admin: 03/19/18 09:04 Dose: 75 mg Dextrose (D50w Syringe) 0 gm IV X1 PRN; Protocol PRN Reason: Hypoglycemia Donepezil HCl (Aricept) 5 mg PO QHS [facility] [place] Last Admin: 03/18/18 21:58 Dose: 5 mg Furosemide (Lasix) 40 mg PO DAILY [facility] [place] Last Admin: 03/19/18 09:06 Dose: 40 mg Glucagon () 1 mg IM .X1 PRN PRN Reason: Hypoglycemia Guaifenesin (Mucinex) 1,200 mg PO BID [facility] [place] Last Admin: 03/19/18 09:04 Dose: 1,200 mg Heparin Sodium (Porcine) (Heparin Na) 5,000 unit SC Q8 [facility] [place] Last Admin: 03/19/18 05:05 Dose: 5,000 u Insulin Aspart (Novolog Flexpen ([facility])) 0 units SC ACHS [facility] PRN Reason: Protocol Last Admin: 03/19/18 11:21 Dose: 9 units Insulin Detemir (Levemir ([facility])) 20 units SC 1100,2200 [facility] Last Admin: 03/19/18 11:21 Dose: 20 u Isosorbide Mononitrate (Imdur) 30 mg PO DAILY [facility] Last Admin: 03/19/18 09:05 Dose: 30 mg Levofloxacin (Levaquin Tablet) 750 mg PO Q48@0600 [facility] Stop: 03/22/18 06:01 Magnesium Hydroxide (Milk Of Magnesia) 30 ml PO DAILY PRN PRN PRN Reason: Constipation Magnesium Oxide (Mag-Ox 400) 400 mg PO DAILY [facility] [place] Last Admin: 03/19/18 09:04 Dose: 400 mg Nitroglycerin (Nitrostat) 0.4 mg SUBLINGUAL Q5M PRN PRN Reason: Chest Pain Ondansetron HCl (Zofran) 4 mg IV Q8H PRN PRN PRN Reason: NAUSEA Pantoprazole Sodium (Protonix) 40 mg PO DAILY [facility] [place] Last Admin: 03/19/18 09:04 Dose: 40 mg Polyethylene Glycol (Miralax) 17 gm PO DAILY [facility] [place] Last Admin: 03/19/18 09:05 Dose: Not Given Polysaccharide Iron Complex (Ferrex 150) 150 mg PO TIDCM [facility] Last Admin: 03/19/18 11:22 Dose: 150 mg Ranolazine (Ranexa) 500 mg PO BID [facility] [place] Last Admin: 03/19/18 09:05 Dose: 500 mg Senna/Docusate Sodium (Senokot-S, Debbie-Colace) 1 tablet PO BID [facility] [place] Last Admin: 03/19/18 09:06 Dose: 1 tablet Sodium Chloride () 5 - 30 ml IV UD PRN PRN Reason: SALINE FLUSH Last Admin: 03/17/18 10:26 Dose: 5 ml Medical Necessity - Tobacco Use Smoking Status: Former smoker Tobacco Use: Non-smoker Assessment/Plan The patient is a 72 y/o M w/ PMHx: Fe Deficiency Anemia, Hx GI Bleed w/ PUD, CKD stage III, Diabetes mellitus type II, Obesity, MAGDI non-compliant with CPAP, CAD s/p CABG and PCI (last 2015 [facility]) and SC, Chronic systolic CHF w/ Ischemic Cardiomyopathy (EF 40%), HTN, HLD, Alzheimer's disease, Carotid disease s/p CEA hx, BPH who presents to the [facility] ED on 03/16/18 with acutely worsened respiratory distress starting ~ 2 hours prior to presentation, noted to have awoken him from sleep with 74% oxygenation noted per EMS, with 2 day history of dyspnea, cough. (1) Acute Hypoxic Respiratory Failure secondary to HCAP Pneumonia: CXR in the ED w/ interval development consolidative process right upper lobe, right lower lobe and left lower lobe. Admission CBC w/ WBC 11.8 with left shift-->03/17/18 CBC w/ WBC 5.6, remained afebrile. Admitted to the ICU initially, maintained on BIPAP initially with transition to NC currently, transitioned 03/17/18 to PCU without issue, continue ATC duonebs, PRN albuterol, initially treated w/ IV Zosyn and Vancomycin, negative MRSA swab-->IV zosyn only with 03/18/18 with transition to q48 hour oral levaquin regimen only with planned total 7 day course abx therapy (complete regimen 03/22/18). Unable to obtain sputum cx, negative urine antigens, negative respiratory viral panel. Bld cx x 2 obtained in the ED with NGTD. (2) Acute on Chronic Systolic CHF w/ Ischemic Cardiomyopathy secondary to Transient Pulmonary Edema secondary to Hypertensive Emergency, Resolved Quickly in the ED and contributed to #1: Upon ED evaluation initially given improvement w/ BIPAP and dose IV lasix in the ED as felt possibly decompensated at that point; however, CXR was not marked congested and patient again noted no recent weight gain, edema, orthopnea complaints w/ concurrent infiltrative process. Had held lasix upon admission secondary to TOM, improved w/ addition back of regimen; however, 03/19/18 secondary to again Cr increase, decreased oral lasix to 40 mg daily. Repeat ECHO pending given just > 6 months since last w/ normal LV size, EF 40%, moderate segmental systolic dysfunction, transmitral diastolic flow velocities suggestive of moderate stage II diastolic dysfunction, moderate MV insufficiency, mild TV insufficiency, compared to prior study no significant change. Will continue asa, plavix, statin, BB, not on ACEI with CKD, added back lasix as noted w/ decreased dose on 03/19/18 per discussion with treatment team. (3) Acute kidney injury: Secondary to presentation #1. Admission BUN/Cr 66/2.61, prior baseline creatinine noted to be 1.9-2.2. Gently hydrated given CHF history, held nephrotoxic medications as able, 03/17/18 BUN/Cr 53/2.06, improved. 03/18/18 oral lasix 40 mg BID restarted; however, repeat BMP w/ BUN/Cr 66/2.57-->03/19/18 BUN/Cr 66/2.70, thus lasix decreased to 40 mg per day per discussion with treatment team, but has been waxing and waning. (4) NSTEMI: Likely secondary to #1, #2, EKG in ED without acute evidence of ischemia w/ ST mild depression V5-V6, CXR w/ bilateral infiltrates as noted, initial trop 0.11-->1.11-->2.39-->2.92, discussed w/ Dr. Jernigan, Cardiology, lovenox therapeutic x 1 administered with noted preference to avoid heparin drip initially and eventually transitioned back to SC heparin only. Recent cardiac catheterization ~ 6 months prior, patient declined repeat catheterization and deferred any further invasive therapies. Continue w/ aggressive medical therapy with asa, plavix, BB, statin, per Cardiology recommendation added ranexa 500 mg BID. ASA, NG, morphine. Repeat ECHO pending given just > 6 months since last w/ normal LV size, EF 40%, moderate segmental systolic dysfunction, transmitral diastolic flow velocities suggestive of moderate stage II diastolic dysfunction, moderate MV insufficiency, mild TV insufficiency, compared to prior study no significant change. (5) Encephalopathy: Multifactorial, secondary to #1, #2, #3, #4, improved in the ED on BIPAP and now returned to baseline. (6) Hypertensive Emergency: As noted initially markedly elevated, likely contributed as noted to #2 with acute CHF exacerbation secondary to pulmonary edema secondary to hypertensive emergency. Improved quickly on BIPAP and following lasix IV administration. Maintained on Norvasc, Coreg, isosorbide, added back oral lasix w/ decreased dose 03/19/18 secondary to Cr w/ hold parameters in place, PRN hydralazine. (7) CAD: s/p SC/PCI/CABG, follows w/ Dr. Jernigan. Will continue home regimen asa, plavix, statin, BB, as noted above w/ NSTEMI acutely thus added ranexa per Cardiology recommendation. (8) Diabetes mellitus type II: Hold oral home regimen, continue home insulin regimen, allow ADA diet once clinically improved, accu checks w/ ISS. (9) Hyperlipidemia: Continue home statin regimen. (10) Chronic Fe Deficiency Anemia, Hx PUD w/ GI bleed: Admission Hgb 10.9, stable from December, 03/19/18 Hgb 8.9. (11) Alzheimer's Dementia with unclear behavioral disturbance: Not on regimen, at [facility] prior to presentation, frequent orientation. (12) Carotid Disease: s/p CEA history. (13) GERD: PPI. (14) Hypokalemia: Admission K+ 3.3, supplementation given, improved, 03/19/18 K 4.5. (15) MAGDI: Continue w/ bilevel therapy with a pressure setting of 15/11 cm of water with humidification per Pulmonary recommendation. (16) DVT prophylaxis: SCDs, lovenox therapeutic x 1 administered w/ NSTEMI per Cardiology request, transitioned back to SC heparin. (17) CODE status: DNR-CCA, no intubation status. Code Visit Inpatient E&M: 47014 Subs Hosp L2
[2018-03-19] MEDS: Acetaminophen 325 MG Tablet 650 MG PO (13:17)
--- NOTE | 2018-03-19 15:21 | PCM.TXEXTCAR ---
- Diet 03/16/18 11:48 Diet: Cardiac: Calorie-Controlled and Cardiac diet Is pt able to select menu?: Yes How many daily calories?: 1800 calorie - Routine Orders/Code Status Enema Type: Fleetz Enema Frequency: Daily PRN Suppository Type: Dulcolax 10mg Suppository Frequency: Daily PRN O2 Liters per Minute: 2 O2 Frequency: Continuous Routine Lab Work: - - Repeat CBC, BMP within 1-[address] Jernigan if worsened renal function to consider further alterations to his lasix regimen or if improving may consider possible increase in regimen. Code Status: DNRCC-A - DNR-CCA, no intubation. - Wound(s) BLE Wound Type: Abrasion - Suggestions for Active Care Hours to sit in a chair: 6 Times a day to sit in chair: 3 - Therapies Weight Bearing: Full weight bearing Extremity Affected:: Bilateral Lower Physical Therapy: Eval and Treat Occupational Therapy: Eval and Treat - Problem/Diagnosis (1) Acute kidney injury Status: Acute Current Visit: No (2) Chronic kidney disease Status: Chronic Current Visit: No (3) Alzheimer's disease Status: Chronic Current Visit: No (4) Diabetes mellitus Status: Chronic Current Visit: No (5) Encephalopathy Status: Acute Current Visit: No (6) Hospital-acquired pneumonia Status: Acute Current Visit: No (7) Ischemic cardiomyopathy Status: Chronic Comment: EF is 40% Current Visit: No (8) Acute hypoxemic respiratory failure Status: Acute Current Visit: No (9) H/O carotid endarterectomy Status: Chronic Comment: August 2017 [facility] Current Visit: No (10) Esophageal reflux Status: Chronic Current Visit: No (11) HLD (hyperlipidemia) Status: Chronic Current Visit: No (12) HTN (hypertension) Status: Chronic Current Visit: No (13) Coronary artery disease Status: Chronic Comment: status post CABG Current Visit: No (14) H/O coronary artery bypass surgery Status: Chronic Current Visit: No (15) Obstructive sleep apnea Status: Chronic Comment: Noncompliant with CPAP Current Visit: No (16) CVA (cerebral vascular accident) Status: Chronic Current Visit: No (17) BPH (benign prostatic hypertrophy) Status: Chronic Current Visit: No (18) Iron deficiency anemia Status: Chronic Current Visit: Yes (19) Acute systolic heart failure Status: Acute Current Visit: No (20) Acute systolic CHF (congestive heart failure) Status: Acute Current Visit: No (21) Hypertensive emergency Status: Acute Current Visit: Yes (22) NSTEMI (non-ST elevated myocardial infarction) Status: Acute Current Visit: No - Allergies/Procedures Done in Hospital Allergies/Adverse Reactions: Allergies hydrocodone bitartrate [From Vicodin] Allergy (Verified 03/16/18 06:11) Anaphylaxis hydralazine Adverse Reaction (Verified 03/16/18 06:11) Shortness of breath Procedures: EKG, - - BIPAP in the ICU. - Type of Care/Length of Stay Estimated LOS: Convalescent Care Less Than 30 days Type of Care Needed: Skilled Rehab Potential: Good Prognosis: Good - Additional Orders/Day of Discharge Additional Orders: (1) HOB. (2) IS 10x/hr 7a-7p. (3) Fall precautions. (4) BL LE Snug SAMARA wraps from toes to knee, overlapping, perform q shift and when comes undone. (5) Encourage q 2hour positioning and coughing. (6) Continue w/ qHS bilevel therapy with a pressure setting of 15/11 cm of water with humidification per Pulmonary recommendation. H&P will serve as current which was dated: 03/16/18 Day of Discharge: 03/19/18 - Dietary and Speech Recommendations Dietitian Recommendations/Changes: When medically able, rec EFRAIN to 1800 liliana Cardiac/low sodium w/ fluid restriction as indicated - Follow Up Care Primary Care Physician: Link Soriano MD [Primary Care Provider] - Please follow up with your Primary Care Physician in: Follow-up within 1-2 days discharge from hospital to review admit. Please Follow Up With: Robbie Jernigan MD When: Follow-up within 1-2 weeks, may see [employer]. Please Follow Up With: Billy Galeana DO When: Follow-up within 1-2 weeks, may see [employer].
--- NOTE | 2018-03-19 15:28 | CASEMGMT ---
Social Work Phone call to Luanne in TCU and precert has not yet been received. Met with pt in room and informed that insurance preauth is still pending. SW will followup tomorrow for possible d/c to TCU. Pt expresses understanding. SW spoke with U ASHLEY Branch and informed her that pt plans to go to [facility] upon d/c from TCU. CARMEN Danielle
[2018-03-19 16:51] LABS: Bedside Glucose 223 mg/dL (70-110)
--- NOTE | 2018-03-19 21:45 | NURSING ---
Report received from Aubrey Nur RN. This RN will resume care of pt at this time.
[2018-03-19] MEDS: Donepezil HCl 5 MG Tablet PO (22:29)
[2018-03-19] MEDS: Atorvastatin Calcium 40 MG Tablet PO (22:29)
[2018-03-19 22:40] LABS: Bedside Glucose 226 mg/dL (70-110)
[2018-03-20] VITALS (13 sets, daily range): BP systolic 136–143; BP diastolic 70–71; PULSE 63–89; RESP 10–24; TEMP 36.3–36.4; O2SAT 82–96
[2018-03-20] MEDS: Albuterol 2.5 MG/3 ML VIAL.NEB. INHALATION (01:39)
[2018-03-20] MEDS: Ipratropium/Albuterol Sulfate 3 ML AMPUL.NEB INHALATION ×4 (03:29→14:58)
[2018-03-20] MEDS: levoFLOXacin 750 MG Tablet PO (05:50)
[2018-03-20 06:14] LABS: Absolute Lymphocyte Count 0.69 X10^3/ul (0.83-4.51); Absolute Neutrophil Count 5.1 X10^3/uL (2.0-7.7); Basophil# 0.03 X10^3/uL; Basophil% 0.5 % (0-1); Eosinophil# 0.16 X10^3/uL; Eosinophils% 2.4 % (0-5); Hematocrit 29.4 % (40-54); Hemoglobin 9.6 g/dl (13.0-16.5); Lymphocyte # 0.69 X10^3/ul (4.0); Lymphocyte % 10.5 % (19-41); Mean Corp Hgb Conc 32.7 g/gl (32-36); Mean Corpuscular Hgb 25.9 pg (27.0-32.0); Mean Corpuscular Volume 79.2 fL (80-94); Mean Platelet Vol. 9.2 fl (6.2-12.0); Monocyte# 0.54 X10^3/uL; Monocyte% 8.2 % (0-10); Neutrophil # 5.12 X10^3/uL (2.7-7.7); Neutrophil % 77.9 % (47-70); Platelet Count 222 K/mm3 (150-450); RBC Distribution Width SD 44.3 fl (35.1-43.9); Red Blood Count 3.71 M/mm3 (4.6-6.2); White Blood Count 6.6 K/mm3 (4.4-11.0)
[2018-03-20 06:21] LABS: POSITIVE COUNT NO; POSITIVE DIFFERENTIAL NO; POSITIVE MORPHOLOGY NO
[2018-03-20 06:36] LABS: Anion Gap 8 (5-15); BUN 67 mg/dL (7-18); Calcium,Total 9.8 mg/dL (8.5-10.1); Chloride 104 mmol/L (98-107); Creatinine, Serum 2.58 mg/dL (0.70-1.30); EST Glomerular Filtration Rate 26 mL/min (>60); Est Glom Filt Rate - Afr Amer 32 mL/min (>60); Estimated Creatinine Clearance 24.67 ml/min; Glucose 182 mg/dL (74-106); Potassium 4.4 mmol/L (3.5-5.1); Sodium Level 138 mmol/L (136-145)
[2018-03-20 07:10] LABS: Bedside Glucose 186 mg/dL (70-110)
--- NOTE | 2018-03-20 07:22 | CPS ---
Pt niya aerosol rx well while sitting up in chair. Pt stated he felt a little S.O.B post aerosol rx. Pt was placed back on Bipap post rx
[2018-03-20] MEDS: Aspirin 81 MG TAB.CHEW PO (08:06)
[2018-03-20] MEDS: Iron Polysaccharide Complex 150 MG CAPSULE PO ×2 (08:06→12:02)
--- NOTE | 2018-03-20 08:35 | PCM.PROGNOTE ---
Patient Problems: Active and Suspected Problems Hypertensive emergency (Acute) Subjective: Patient was seen and examined. He is sitting up in the chair in no acute distress. Reports he is somewhat short of breath as he is doing occupational therapy at this time. States he needed BiPAP this morning secondary to dyspnea, however that has improved. He appears somewhat anxious this morning. Objective: Recent lab and culture data reviewed. No new imaging to review. Patient remains afebrile and hemodynamically stable. Blood culture showing no growth ?48 hours. Urine strep/Legionella antigens were negative. Viral respiratory panel negative. - Physical Exam General: Alert, Oriented x3, Cooperative, No apparent distress, - - No conversational dyspnea HEENT: Atraumatic, Normocephalic Oral: Moist Mucosa Neck: Supple, No Nodes, Trachea Midline Lungs: No rhonchi, No wheeze, No rales, Diminished, - - Poor inspiratory effort Cardiovascular: Regular rate, Regular Rhythm, Normal S1, Normal S2, No murmurs, No rub noted, No Gallop Abdomen: Bowel Sounds Present, Soft, Non Tender, Non-Distended Extremities: No clubbing, No cyanosis, No edema Skin: - - Does Neurological: Neuro grossly intact Psych/Mental Status: Alert and oriented to time, place, person, mood and affect Vital Signs Temp Pulse Resp BP Pulse Ox 97.4 F L 63 18 136/71 H 96 03/20/18 02:32 03/20/18 07:18 03/20/18 06:42 03/20/18 02:32 03/20/18 06:42 Oxygen Flow Rate (L/min) 2 Oxygen Delivery Method Room Air Weight: 189 lb 13.088 oz Body Mass Index (BMI) 29.0 Intake and Output for Last 24 Hours 03/18/18 03/19/18 03/20/18 23:59 23:59 23:59 Intake Total 1345 / 1345 890 / 890 20 / 20 Output Total 400 / 400 825 / 825 150 / 150 Balance 945 / 945 65 / 65 -130 / -130 Laboratory Tests Past 24 Hrs 03/20/18 03/20/18 05:35 05:35 WBC 6.6 RBC 3.71 L Hgb 9.6 L Hct 29.4 L MCV 79.2 L MCH 25.9 L MCHC 32.7 RDW 16.0 H RDW Differential 44.3 H Plt Count 222 MPV 9.2 Immature Gran % (Auto) 0.500 Neut % (Auto) 77.9 H Lymph % (Auto) 10.5 L Blount % (Auto) 8.2 Eos % (Auto) 2.4 Baso % (Auto) 0.5 Absolute Neuts (auto) 5.1 Absolute Lymphs (auto) 0.69 L Total Counted Not Reportable Sodium 138 Potassium 4.4 Chloride 104 Carbon Dioxide 26.0 Anion Gap 8 BUN 67 H Creatinine 2.58 H Estim Creat Clear Calc 24.67 Est GFR (MDRD) Af Amer 32 L Est GFR (MDRD) Non-Af 26 L BUN/Creatinine Ratio 26.0 H Glucose 182 H Calcium 9.8 POC Glucose 03/20/18 03/19/18 03/19/18 06:53 22:26 16:47 POC Glucose 186 H 226 H 223 H 03/19/18 11:19 POC Glucose 297 H Medical Necessity - Tobacco Use Smoking Status: Former smoker Tobacco Use: Non-smoker Assessment/Plan Active and Suspected Problems Hypertensive emergency (Acute) RECOMMENDATIONS: 1. Continue Levaquin for 7 day course 2. Wean supplemental oxygen to maintain saturations at or above 90% 3. Continue home antihypertensive regimen 4. Continue Levemir and sliding scale insulin coverage, adjust as indicated 5. Empiric BiPAP utilization 15/11 cm of water nightly 6. Mobilize patient as tolerated 7. Okay to discharge to TCU from pulmonary perspective, pending insurance approval IMPRESSIONS: 1. Acute hypoxemic respiratory failure secondary to healthcare associated pneumonia Continue antibiotics as ordered. The patient has been weaned from noninvasive positive pressure ventilation. His supplemental oxygen will be weaned to maintain oxygen saturations at or above 90%. Although the patient's accelerated blood pressure on presentation may have led to a mild degree of pulmonary vascular congestion, his plain film chest imaging did reveal a right-sided consolidative process. Recommend completing a 7 day course of Levaquin. Encourage ambulation and incentive spirometer/chest physiotherapy. 2. Acute on chronic renal insufficiency Improved. Unclear etiology. We will continue to monitor urine output. No indication for renal replacement therapy currently. 3. Troponin elevation/known coronary artery disease/chronic systolic heart failure/hypertension Potentially related to demand ischemia in the setting of #1. Cardiology is following. Continue outpatient antihypertensive regimen per cardiology recommendations. 4. Personal history of obstructive sleep apnea The patient is noncompliant with the use of nocturnal noninvasive positive pressure ventilation. His last sleep study indicated a need for bilevel therapy at a pressure setting of 15/11 cm of water. Recommend empiric utilization while admitted to the hospital on a nightly basis and PRN during the day. 5. Hyperlipidemia/iron deficiency anemia/GERD/Alzheimer's dementia/diabetes Complicates care, management, recovery and prognosis. Continue Levemir and sliding scale insulin coverage. Continue PT/OT. Plan for discharge to TCU. This note was generated with [employer] dictation software. It may contain incorrect words, spelling, and punctuation that were not noted in checking the note before signing.
--- NOTE | 2018-03-20 09:08 | PN_ITS ---
Patient Problems: Active and Suspected Problems Hypertensive emergency (Acute) Subjective: Patient was seen and examined. He is sitting up in the chair in no acute distress. Reports he is somewhat short of breath as he is doing occupational therapy at this time. States he needed BiPAP this morning secondary to dyspnea , however that has improved. He appears somewhat anxious this morning. Objective: Recent lab and culture data reviewed. No new imaging to review. Patient remains afebrile and hemodynamically stable. Blood culture showing no growth ? 48 hours. Urine strep/Legionella antigens were negative. Viral respiratory panel negative. - Physical Exam General: Alert, Oriented x3, Cooperative, No apparent distress, - - No conversational dyspnea HEENT: Atraumatic, Normocephalic Oral: Moist Mucosa Neck: Supple, No Nodes, Trachea Midline Lungs: No rhonchi, No wheeze, No rales, Diminished, - - Poor inspiratory effort Cardiovascular: Regular rate, Regular Rhythm, Normal S1, Normal S2, No murmurs, No rub noted, No Gallop Abdomen: Bowel Sounds Present, Soft, Non Tender, Non-Distended Extremities: No clubbing, No cyanosis, No edema Skin: - - Does Neurological: Neuro grossly intact Psych/Mental Status: Alert and oriented to time, place, person, mood and affect Vital Signs Temp Pulse Resp BP Pulse Ox 97.4 F L 63 18 136/71 H 96 03/20/18 02:32 03/20/18 07:18 03/20/18 06:42 03/20/18 02:32 03/20/18 06:42 Oxygen Flow Rate (L/min) 2 Oxygen Delivery Method Room Air Weight: 189 lb 13.088 oz Body Mass Index (BMI) 29.0 Intake and Output for Last 24 Hours 03/18/18 03/19/18 03/20/18 23:59 23:59 23:59 Intake Total 1345 / 1345 890 / 890 20 / 20 Output Total 400 / 400 825 / 825 150 / 150 Balance 945 / 945 65 / 65 -130 / -130 Laboratory Tests Past 24 Hrs 03/20/18 03/20/18 05:35 05:35 WBC 6.6 RBC 3.71 L Hgb 9.6 L Hct 29.4 L MCV 79.2 L MCH 25.9 L MCHC 32.7 RDW 16.0 H RDW Differential 44.3 H Plt Count 222 MPV 9.2 Immature Gran % (Auto) 0.500 Neut % (Auto) 77.9 H Lymph % (Auto) 10.5 L [place] % (Auto) 8.2 Eos % (Auto) 2.4 Baso % (Auto) 0.5 Absolute Neuts (auto) 5.1 Absolute Lymphs (auto) 0.69 L Total Counted Not Reportable Sodium 138 Potassium 4.4 Chloride 104 Carbon Dioxide 26.0 Anion Gap 8 BUN 67 H Creatinine 2.58 H Estim Creat Clear Calc 24.67 Est GFR (MDRD) Af Amer 32 L Est GFR (MDRD) Non-Af 26 L BUN/Creatinine Ratio 26.0 H Glucose 182 H Calcium 9.8 POC Glucose 03/20/18 03/19/18 03/19/18 06:53 22:26 16:47 POC Glucose 186 H 226 H 223 H 03/19/18 11:19 POC Glucose 297 H Medical Necessity - Tobacco Use Smoking Status: Former smoker Tobacco Use: Non-smoker Assessment/Plan Active and Suspected Problems Hypertensive emergency (Acute) RECOMMENDATIONS: 1. Continue Levaquin for 7 day course 2. Wean supplemental oxygen to maintain saturations at or above 90% 3. Continue home antihypertensive regimen 4. Continue Levemir and sliding scale insulin coverage, adjust as indicated 5. Empiric BiPAP utilization 15/11 cm of water nightly 6. Mobilize patient as tolerated 7. Okay to discharge to TCU from pulmonary perspective, pending insurance approval IMPRESSIONS: 1. Acute hypoxemic respiratory failure secondary to healthcare associated pneumonia Continue antibiotics as ordered. The patient has been weaned from noninvasive positive pressure ventilation. His supplemental oxygen will be weaned to maintain oxygen saturations at or above 90%. Although the patient's accelerated blood pressure on presentation may have led to a mild degree of pulmonary vascular congestion, his plain film chest imaging did reveal a right- sided consolidative process. Recommend completing a 7 day course of Levaquin. Encourage ambulation and incentive spirometer/chest physiotherapy. 2. Acute on chronic renal insufficiency Improved. Unclear etiology. We will continue to monitor urine output. No indication for renal replacement therapy currently. 3. Troponin elevation/known coronary artery disease/chronic systolic heart failure/hypertension Potentially related to demand ischemia in the setting of #1. Cardiology is following. Continue outpatient antihypertensive regimen per cardiology recommendations. 4. Personal history of obstructive sleep apnea The patient is noncompliant with the use of nocturnal noninvasive positive pressure ventilation. His last sleep study indicated a need for bilevel therapy at a pressure setting of 15/11 cm of water. Recommend empiric utilization while admitted to the hospital on a nightly basis and PRN during the day. 5. Hyperlipidemia/iron deficiency anemia/GERD/Alzheimer's dementia/diabetes Complicates care, management, recovery and prognosis. Continue Levemir and sliding scale insulin coverage. Continue PT/OT. Plan for discharge to TCU. This note was generated with GoSpotCheck dictation software. It may contain incorrect words, spelling, and punctuation that were not noted in checking the note before signing.
[2018-03-20] MEDS: amLODIPine 5 MG Tablet PO (10:09)
[2018-03-20] MEDS: Furosemide 40 MG Tablet PO (10:09)
[2018-03-20] MEDS: Carvedilol 6.25 MG Tablet PO (10:09)
[2018-03-20] MEDS: Magnesium Oxide 400 MG Tablet PO (10:09)
[2018-03-20] MEDS: Senna/Docusate Sodium 1 Tablet PO (10:09)
[2018-03-20] MEDS: guaiFENesin 1,200 MG Tablet 1200 MG PO (10:09)
[2018-03-20] MEDS: Pantoprazole Sodium 40 MG Tablet PO (10:09)
[2018-03-20] MEDS: Clopidogrel Bisulfate 75 MG Tablet PO (10:09)
[2018-03-20] MEDS: Ranolazine 500 MG Tablet PO (10:09)
[2018-03-20] MEDS: Isosorbide Mononitrate 30 MG Tablet PO (10:09)
--- NOTE | 2018-03-20 11:11 | PCM.PN.HOSP ---
Patient Problems: Active and Suspected Problems Hypertensive emergency (Acute) Subjective: Patient with no acute events overnight per nursing report however patient does state that he still has dyspnea despite remarkable improvement. He has been consistently complaining that he still does have dyspnea despite aerosol treatments. Pulmonary evaluation with feeling that patient has resolved to near baseline with encourage continued empiric BiPAP at night and continued supplementation of oxygen with aerosols. Given patient renal function unable to add low-dose Klonopin at this time is likely patient's complaints is more sensation as opposed to worsening status. Patient denies fevers, chills, nausea, emesis, abdominal pain, chest pain. Objective: Physical Examination: General: awake, alert, oriented x 3, seated upright in the bedside chair, NAD. Skin: normal color, turgor, no icterus, cyanosis. HEENT: AT/NC, EOMI, PERRLA, MMM. Lungs: Improved, diminished, > bases, no current wheezing, rales, crackles. Heart: Regular rate and rhythm; no gallop, rub audible. Abdomen: soft, NTTP, ND, normal BS. Extremities: no cyanosis, clubbing, mild BL ankle. Neurological: patient awake, alert, oriented x 3; cognitive function intact; pupils equally reactive to light and accomodation; cranial nerves II-XII grossly normal, moving all 4 extremities, no focal deficits, strength improved, moderately globally decreased. Psychiatric: affect appears normal, no acute evidence of depressive or anxiety feelings. Vitals/I&O's: Vital Signs Temp Pulse Resp BP Pulse Ox 97.6 F L 64 16 143/70 H 94 03/20/18 10:07 03/20/18 10:07 03/20/18 10:07 03/20/18 10:07 03/20/18 10:07 Oxygen Flow Rate (L/min) 2 Oxygen Delivery Method Nasal Cannula Weight: 189 lb 13.088 oz Body Mass Index (BMI) 29.0 Intake and Output for Last 24 Hours 03/18/18 03/19/18 03/20/18 23:59 23:59 23:59 Intake Total 1345 / 1345 890 / 890 20 / 20 Output Total 400 / 400 825 / 825 150 / 150 Balance 945 / 945 65 / 65 -130 / -130 Laboratory Results 03/19/18 11:19: POC Glucose 297 H 03/19/18 16:47: POC Glucose 223 H 03/19/18 22:26: POC Glucose 226 H 03/20/18 05:35: WBC 6.6, RBC 3.71 L, Hgb 9.6 L, Hct 29.4 L, MCV 79.2 L, MCH 25.9 L, MCHC 32.7, RDW 16.0 H, RDW Differential 44.3 H, Plt Count 222, MPV 9.2, Immature Gran % (Auto) 0.500, Neut % (Auto) 77.9 H, Lymph % (Auto) 10.5 L, [place] % (Auto) 8.2, Eos % (Auto) 2.4, Baso % (Auto) 0.5, Absolute Neuts (auto) 5.1, Absolute Lymphs (auto) 0.69 L, Total Counted Not Reportable 03/20/18 05:35: Sodium 138, Potassium 4.4, Chloride 104, Carbon Dioxide 26.0, Anion Gap 8, BUN 67 H, Creatinine 2.58 H, Estim Creat Clear Calc 24.67, Est GFR (MDRD) Af Amer 32 L, Est GFR (MDRD) Non-Af 26 L, BUN/Creatinine Ratio 26.0 H, Glucose 182 H, Calcium 9.8 03/20/18 06:53: POC Glucose 186 H Current Medications Acetaminophen (Tylenol) 650 mg PO Q4H PRN PRN PRN Reason: FEVER Last Admin: 03/16/18 15:05 Dose: 650 mg Acetaminophen (Tylenol) 650 mg PO Q6H PRN PRN PRN Reason: Mild Pain (scale 0-3)/T>100.7 Last Admin: 03/19/18 13:17 Dose: 650 mg Al Hydroxide/Mg Hydroxide (Mylanta Ii) 30 ml PO Q6H PRN PRN PRN Reason: Gastric burning Albuterol Sulfate (Ventolin Aerosols) 2.5 mg INHALATION Q2H PRN PRN PRN Reason: SHORTNESS OF BREATH Last Admin: 03/20/18 01:39 Dose: 2.5 mg Albuterol/Ipratropium (Duoneb) 3 ml INHALATION Q4H.RT GARY Last Admin: 03/20/18 11:08 Dose: 3 ml Amlodipine Besylate (Norvasc) 5 mg PO DAILY GARY Last Admin: 03/20/18 10:09 Dose: 5 mg Aspirin (Aspirin, Baby) 81 mg PO DAILY@0800 [facility] Last Admin: 03/20/18 08:06 Dose: 81 mg Atorvastatin Calcium (Lipitor) 40 mg PO QHS [facility] Last Admin: 03/19/18 22:29 Dose: 40 mg Carvedilol (Coreg) 6.25 mg PO BID [facility] Last Admin: 03/20/18 10:09 Dose: 6.25 mg Clopidogrel Bisulfate (Plavix) 75 mg PO DAILY [facility] Last Admin: 03/20/18 10:09 Dose: 75 mg Dextrose (D50w Syringe) 0 gm IV X1 PRN; Protocol PRN Reason: Hypoglycemia Donepezil HCl (Aricept) 5 mg PO QHS [facility] Last Admin: 03/19/18 22:29 Dose: 5 mg Furosemide (Lasix) 40 mg PO DAILY [facility] Last Admin: 03/20/18 10:09 Dose: 40 mg Glucagon () 1 mg IM .X1 PRN PRN Reason: Hypoglycemia Guaifenesin (Mucinex) 1,200 mg PO BID [facility] Last Admin: 03/20/18 10:09 Dose: 1,200 mg Heparin Sodium (Porcine) (Heparin Na) 5,000 unit SC Q8 [facility] Last Admin: 03/20/18 05:20 Dose: Not Given Insulin Aspart (Novolog Flexpen (Bk)) 0 units SC ACHS [facility] PRN Reason: Protocol Last Admin: 03/20/18 08:06 Dose: 3 units Insulin Detemir (Levemir (Bk)) 20 units SC 1100,2200 [facility] Last Admin: 03/20/18 10:10 Dose: 20 u Isosorbide Mononitrate (Imdur) 30 mg PO DAILY [facility] Last Admin: 03/20/18 10:09 Dose: 30 mg Levofloxacin (Levaquin Tablet) 750 mg PO Q48@0600 [facility] Stop: 03/22/18 06:01 Last Admin: 03/20/18 05:50 Dose: 750 mg Magnesium Hydroxide (Milk Of Magnesia) 30 ml PO DAILY PRN PRN PRN Reason: Constipation Magnesium Oxide (Mag-Ox 400) 400 mg PO DAILY [facility] Last Admin: 03/20/18 10:09 Dose: 400 mg Nitroglycerin (Nitrostat) 0.4 mg SUBLINGUAL Q5M PRN PRN Reason: Chest Pain Ondansetron HCl (Zofran) 4 mg IV Q8H PRN PRN PRN Reason: NAUSEA Pantoprazole Sodium (Protonix) 40 mg PO DAILY [facility] Last Admin: 03/20/18 10:09 Dose: 40 mg Polyethylene Glycol (Miralax) 17 gm PO DAILY [facility] Last Admin: 03/20/18 10:10 Dose: Not Given Polysaccharide Iron Complex (Ferrex 150) 150 mg PO TIDCM [facility] Last Admin: 03/20/18 08:06 Dose: 150 mg Ranolazine (Ranexa) 500 mg PO BID [facility] Last Admin: 03/20/18 10:09 Dose: 500 mg Senna/Docusate Sodium (Senokot-S, Edbbie-Colace) 1 tablet PO BID [facility] Last Admin: 03/20/18 10:09 Dose: 1 tablet Sodium Chloride () 5 - 30 ml IV UD PRN PRN Reason: SALINE FLUSH Last Admin: 03/17/18 10:26 Dose: 5 ml Medical Necessity - Tobacco Use Smoking Status: Former smoker Tobacco Use: Non-smoker Assessment/Plan Active and Suspected Problems Hypertensive emergency (Acute) The patient is a 72 y/o M w/ PMHx: Fe Deficiency Anemia, Hx GI Bleed w/ PUD, CKD stage III, Diabetes mellitus type II, Obesity, MAGDI non-compliant with CPAP, CAD s/p CABG and PCI (last 2015 CC main) and NV, Chronic systolic CHF w/ Ischemic Cardiomyopathy (EF 40%), HTN, HLD, Alzheimer's disease, Carotid disease s/p CEA hx, BPH who presents to the [facility] ED on 03/16/18 with acutely worsened respiratory distress starting ~ 2 hours prior to presentation, noted to have awoken him from sleep with 74% oxygenation noted per EMS, with 2 day history of dyspnea, cough. (1) Acute Hypoxic Respiratory Failure secondary to HCAP Pneumonia, Possible GN Organism: CXR in the ED w/ interval development consolidative process right upper lobe, right lower lobe and left lower lobe. Admission CBC w/ WBC 11.8 with left shift-->03/17/18 CBC w/ WBC 5.6, remained afebrile. Admitted to the ICU initially, maintained on BIPAP initially with transition to IL currently, transitioned 03/17/18 to PCU without issue, continue ATC duonebs, PRN albuterol, initially treated w/ IV Zosyn and Vancomycin, negative MRSA swab-->IV zosyn only with 03/18/18 with transition to q48 hour oral levaquin regimen only with planned total 7 day course abx therapy (complete regimen 03/22/18). Unable to obtain sputum cx, negative urine antigens, negative respiratory viral panel. Bld cx x 2 obtained in the ED with NGTD. Plan early follow-up while in TCU with Pulmonary. (2) Acute on Chronic Systolic CHF w/ Ischemic Cardiomyopathy secondary to Transient Pulmonary Edema secondary to Hypertensive Emergency, Resolved Quickly in the ED and contributed to #1: Upon ED evaluation initially given improvement w/ BIPAP and dose IV lasix in the ED as felt possibly decompensated at that point; however, CXR was not marked congested and patient again noted no recent weight gain, edema, orthopnea complaints w/ concurrent infiltrative process. Had held lasix upon admission secondary to TOM, improved w/ addition back of regimen; however, 03/19/18 secondary to again Cr increase, decreased oral lasix to 40 mg daily. Repeat ECHO pending given just > 6 months since last w/ normal LV size, EF 40%, moderate segmental systolic dysfunction, transmitral diastolic flow velocities suggestive of moderate stage II diastolic dysfunction, moderate MV insufficiency, mild TV insufficiency, compared to prior study no significant change. Will continue asa, plavix, statin, BB, not on ACEI with CKD, added back lasix as noted w/ decreased dose on 03/19/18 per discussion with treatment team, improved renal function 03/20/18, continue to monitor and alter lasix as needed. Plan early follow-up while in TCU with Cardiology. (3) Acute kidney injury: Secondary to presentation #1. Admission BUN/Cr 66/2.61, prior baseline creatinine noted to be 1.9-2.2. Gently hydrated given CHF history, held nephrotoxic medications as able, 03/17/18 BUN/Cr 53/2.06, improved. 03/18/18 oral lasix 40 mg BID restarted; however, repeat BMP w/ BUN/Cr 66/2.57-->03/19/18 BUN/Cr 66/2.70, thus lasix decreased to 40 mg per day per discussion with treatment team, but has been waxing and waning. 03/20/18 BUN/Cr 67/2.58, continue to trend. (4) NSTEMI: Likely secondary to #1, #2, EKG in ED without acute evidence of ischemia w/ ST mild depression V5-V6, CXR w/ bilateral infiltrates as noted, initial trop 0.11-->1.11-->2.39-->2.92, discussed w/ Dr. Jernigan, Cardiology, lovenox therapeutic x 1 administered with noted preference to avoid heparin drip initially and eventually transitioned back to SC heparin only. Recent cardiac catheterization ~ 6 months prior, patient declined repeat catheterization and deferred any further invasive therapies. Continue w/ aggressive medical therapy with asa, plavix, BB, statin, per Cardiology recommendation added ranexa 500 mg BID. ASA, NG, morphine. Repeat ECHO pending given just > 6 months since last w/ normal LV size, EF 40%, moderate segmental systolic dysfunction, transmitral diastolic flow velocities suggestive of moderate stage II diastolic dysfunction, moderate MV insufficiency, mild TV insufficiency, compared to prior study no significant change. (5) Encephalopathy: Multifactorial, secondary to #1, #2, #3, #4, improved in the ED on BIPAP and now returned to baseline. (6) Hypertensive Emergency: As noted initially markedly elevated, likely contributed as noted to #2 with acute CHF exacerbation secondary to pulmonary edema secondary to hypertensive emergency. Improved quickly on BIPAP and following lasix IV administration. Maintained on Norvasc, Coreg, isosorbide, added back oral lasix w/ decreased dose 03/19/18 secondary to Cr w/ hold parameters in place, PRN hydralazine. Continue to monitor renal fx and if needed may increased lasix again. (7) CAD: s/p NV/PCI/CABG, follows w/ Dr. Jernigan. Will continue home regimen asa, plavix, statin, BB, as noted above w/ NSTEMI acutely thus added ranexa per Cardiology recommendation. (8) Diabetes mellitus type II: Hold oral home regimen, continue home insulin regimen, ADA diet, accu checks w/ ISS. (9) Hyperlipidemia: Continue home statin regimen. (10) Chronic Fe Deficiency Anemia, Hx PUD w/ GI bleed: Admission Hgb 10.9, stable from December, 03/20/18 Hgb 9.6. (11) Alzheimer's Dementia with unclear behavioral disturbance: Not on regimen, at [facility] prior to presentation, frequent orientation. (12) Carotid Disease: s/p CEA history. (13) GERD: PPI. (14) Hypokalemia: Admission K+ 3.3, supplementation given, improved, 03/20/18 K 4.4. (15) MAGDI: Continue w/ bilevel therapy with a pressure setting of 15/11 cm of water with humidification per Pulmonary recommendation. (16) DVT prophylaxis: SCDs, lovenox therapeutic x 1 administered w/ NSTEMI per Cardiology request, transitioned back to SC heparin. (17) CODE status: DNR-CCA, no intubation status. Code Visit Inpatient E&M: 04261 Subs Hosp L2
[2018-03-20 11:51] LABS: Bedside Glucose 206 mg/dL (70-110)
--- NOTE | 2018-03-20 14:15 | CASEMGMT ---
Received call from [facility] and they have denied patient going to TCU. (per her message nurse reviewer and their medical records technician) ASHLEY spoke with patient and he feels he will be okay going back to [place]. ASHLEY told him we will set up home health for him and O2 if needed. ASHLEY asked if he would like SW to call family and told SW no as his son will be in to see him in a little bit and he will transport him. ASHLEY also called Jessica at [facility] and had to leave her a message as she was out of the building at the moment. ASHLEY passed along this information to SW Ocularist as this SW has to leave. Pau REDDY MSW
--- NOTE | 2018-03-20 14:25 | PCM.DC ---
- Discharge Diagnoses Current Active Problems: Current Active and Chronic Problems (1) Acute Hypoxic Respiratory Failure secondary to HCAP Pneumonia, Possible GN Organism (2) Acute on Chronic Systolic CHF w/ Ischemic Cardiomyopathy secondary to Transient Pulmonary Edema secondary to Hypertensive Emergency, Resolved Quickly in the ED and contributed to #1 (3) Acute kidney injury, Secondary to presentation #1 on CKD stage III (4) NSTEMI, Likely secondary to #1, #2 (5) Encephalopathy, Multifactorial, secondary to #1, #2, #3, #4 (6) Hypertensive Emergency (7) CAD (8) Diabetes mellitus type II (9) Hyperlipidemia (10) Chronic Fe Deficiency Anemia, Hx PUD w/ GI bleed (11) Alzheimer's Dementia with unclear behavioral disturbance (12) Carotid Disease (13) GERD (14) MAGDI: Continue w/ bilevel therapy with a pressure setting of 15/11 cm of water with humidification per Pulmonary recommendation. (15) CODE status: DNR-CCA, no intubation status. You will use the following diet at home:: Calorie/Carbohydrate Controlled (specify 1200, 1400, etc), Cardiac - 1800 ADA calorie and cardiac diet. Your food should be the consistency of: Regular Your liquids should be the consistency of: Regular/Thin Discharge Activity: - - Avoid aggressive activity until re-evaluation per Pulmonary and Cardiology. May resume sexual activity in: 10-14 days Weight Bearing Status: Weight bearing as tolerated Call your doctor if you observe: Fever of 101 or Higher, Inability to urinate, Inability to have a bowel movement, Shortness of breath, Dizziness, Fainting spells, Chest pain, Uncontrolled pain Instructions: What Is Pneumonia?, Using Oxygen at Home, Preventing Pneumonia, Pneumonia Treatment, Using Oxygen Safely, Discharge Instructions for Heart Failure, Taking Medications for Your Heart, Common Heart Medications, Heart Failure: Tracking Your Weight, Heart Failure: Warning Signs of a Flare-Up Additional Instructions: Please follow-up with your primary care physician within 3-5 days to review the admission and have repeat BMP to continue to trend your renal function and make further alterations to your medications as needed. Continue 3L NC as rx until re-evaluation per Dr. Galeana, Pulmonary for any further direction changes or needs. Please continue with plans for home MAGDI treatment per Dr. Galeana w/ bilevel therapy with a pressure setting of 15/11 cm of water with humidification. Allergies/Adverse Reactions: Allergies hydrocodone bitartrate [From Vicodin] Allergy (Verified 03/16/18 06:11) Anaphylaxis hydralazine Adverse Reaction (Verified 03/16/18 06:11) Shortness of breath Medications to take at Discharge Amlodipine Besylate [Norvasc] 5 mg PO DAILY 03/16/18 Aspirin [Aspirin, Baby] 81 mg PO DAILY@0800 03/16/18 Atorvastatin Calcium [Lipitor] 40 mg PO QHS 03/16/18 Carvedilol [Coreg] 6.25 mg PO BID 03/16/18 Clopidogrel Bisulfate [Clopidogrel] 75 mg PO DAILY 03/16/18 Donepezil HCl [Aricept] 5 mg PO QHS 03/16/18 Insulin Detemir [Levemir] 40 unit SQ BID 03/16/18 Iron Polysaccharide Complex [Ferrex 150] 150 mg PO TIDCM 03/16/18 Isosorbide Mononitrate [Isosorbide Mononitrate ER] 30 mg PO DAILY 03/16/18 Magnesium Oxide [Mag-Ox 400] 400 mg PO DAILY 03/16/18 Nitroglycerin [Nitrostat] 0.4 mg SUBLINGUAL Q5M PRN 03/16/18 [place]-3 Acid Ethyl Esters 2 cap PO BID 03/16/18 Pantoprazole Sodium [Protonix] 40 mg PO DAILY 03/16/18 Polyethylene Glycol 3350 [Miralax] 17 gm PO DAILY 03/16/18 Senna/Docusate Sodium [Senokot-S] 1 tablet PO BID 03/16/18 Albuterol Aerosols [Ventolin Aerosols] 2.5 mg INHALATION Q2H PRN PRN vial.neb. 03/19/18 Furosemide [Lasix] 40 mg PO DAILY tablet 03/19/18 Guaifenesin [Mucinex] 1,200 mg PO BID 5 Days tablet 03/19/18 Ipratropium/Albuterol Sulfate [Duoneb] 3 ml INHALATION Q4H.RT ampul.neb 03/19/18 Ranolazine [Ranexa] 500 mg PO BID tablet 03/19/18 levoFLOXacin tablet [Levaquin tablet] 750 mg PO Q48@0600 #2 tablet 03/19/18 Nebulizer [Lc Plus] 1 [facility] UD #1 ea 03/20/18 The following prescriptions were given: Nebulizer [Lc Plus] 1 ea [facility] UD #1 ea Primary Care Physician: Link Soriano MD [Primary Care Provider] - Please follow up with your Primary Care Physician in: Follow-up within 3-5 days to review admit. Please Follow Up With: Robbie Jernigan MD When: Follow-up within 1-2 weeks, may see [employer]PLI[employer]ES DEMONSTRATOR. Please Follow Up With: Billy Galeana DO When: Follow-up within 1-2 weeks, may see E[employer] APPLI[employer]ES DEMONSTRATOR. Please Follow Up With: Amalia Palafox DO When: Follow-up for TOM on CKD to establish, within 1 week preferred. Proposed Discharge Date: 03/20/18
--- NOTE | 2018-03-20 14:30 | CASEMGMT ---
Social Work Note ASHLEY received a call from Rand, hospice social worker, that pt got denied for skilled SNF placement and pt would like PT/OT in his home through [facility]. Pt is from [facility] assisted living. ASHLEY spoke with Laura at [facility] to give her the referral. Laura states that [facility] can provide PT/OT for pt but that they won't be able to start till Friday. Laura states that they will receive authorization for the initial evaluation but then after that usually insurance denies when pt lives in assisted living. Laura states that she will speak to pt about PT/OT starting Friday to make sure he is agreeable and will let this worker know. Plan: Discharge back to [facility] assisted living with [facility] PT/OT. Gloria Dennis MSW, AUTOMOTIVE BRAKE TECHNICIAN
--- NOTE | 2018-03-20 14:35 | DCINST_ITS ---
- Discharge Diagnoses Current Active Problems: Current Active and Chronic Problems (1) Acute Hypoxic Respiratory Failure secondary to HCAP Pneumonia, Possible GN Organism (2) Acute on Chronic Systolic CHF w/ Ischemic Cardiomyopathy secondary to Transient Pulmonary Edema secondary to Hypertensive Emergency, Resolved Quickly in the ED and contributed to #1 (3) Acute kidney injury, Secondary to presentation #1 on CKD stage III (4) NSTEMI, Likely secondary to #1, #2 (5) Encephalopathy, Multifactorial, secondary to #1, #2, #3, #4 (6) Hypertensive Emergency (7) CAD (8) Diabetes mellitus type II (9) Hyperlipidemia (10) Chronic Fe Deficiency Anemia, Hx PUD w/ GI bleed (11) Alzheimer's Dementia with unclear behavioral disturbance (12) Carotid Disease (13) GERD (14) MAGDI: Continue w/ bilevel therapy with a pressure setting of 15/11 cm of water with humidification per Pulmonary recommendation. (15) CODE status: DNR-CCA, no intubation status. You will use the following diet at home:: Calorie/Carbohydrate Controlled ( specify 1200, 1400, etc), Cardiac - 1800 ADA calorie and cardiac diet. Your food should be the consistency of: Regular Your liquids should be the consistency of: Regular/Thin Discharge Activity: - - Avoid aggressive activity until re-evaluation per Pulmonary and Cardiology. May resume sexual activity in: 10-14 days Weight Bearing Status: Weight bearing as tolerated Call your doctor if you observe: Fever of 101 or Higher, Inability to urinate, Inability to have a bowel movement, Shortness of breath, Dizziness, Fainting spells, Chest pain, Uncontrolled pain Instructions: What Is Pneumonia?, Using Oxygen at Home, Preventing Pneumonia, Pneumonia Treatment, Using Oxygen Safely, Discharge Instructions for Heart Failure, Taking Medications for Your Heart, Common Heart Medications, Heart Failure: Tracking Your Weight, Heart Failure: Warning Signs of a Flare-Up Additional Instructions: Please follow-up with your primary care physician within 3-5 days to review the admission and have repeat BMP to continue to trend your renal function and make further alterations to your medications as needed. Continue 3L NC as rx until re-evaluation per Dr. Galeana, Pulmonary for any further direction changes or needs. Please continue with plans for home MAGDI treatment per Dr. Galeana w/ bilevel therapy with a pressure setting of 15/11 cm of water with humidification. Allergies/Adverse Reactions: Allergies hydrocodone bitartrate [From Vicodin] Allergy (Verified 03/16/18 06:11) Anaphylaxis hydralazine Adverse Reaction (Verified 03/16/18 06:11) Shortness of breath Medications to take at Discharge Amlodipine Besylate [Norvasc] 5 mg PO DAILY 03/16/18 Aspirin [Aspirin, Baby] 81 mg PO DAILY@0800 03/16/18 Atorvastatin Calcium [Lipitor] 40 mg PO QHS 03/16/18 Carvedilol [Coreg] 6.25 mg PO BID 03/16/18 Clopidogrel Bisulfate [Clopidogrel] 75 mg PO DAILY 03/16/18 Donepezil HCl [Aricept] 5 mg PO QHS 03/16/18 Insulin Detemir [Levemir] 40 unit SQ BID 03/16/18 Iron Polysaccharide Complex [Ferrex 150] 150 mg PO TIDCM 03/16/18 Isosorbide Mononitrate [Isosorbide Mononitrate ER] 30 mg PO DAILY 03/16/18 Magnesium Oxide [Mag-Ox 400] 400 mg PO DAILY 03/16/18 Nitroglycerin [Nitrostat] 0.4 mg SUBLINGUAL Q5M PRN 03/16/18 [place]-3 Acid Ethyl Esters 2 cap PO BID 03/16/18 Pantoprazole Sodium [Protonix] 40 mg PO DAILY 03/16/18 Polyethylene Glycol 3350 [Miralax] 17 gm PO DAILY 03/16/18 Senna/Docusate Sodium [Senokot-S] 1 tablet PO BID 03/16/18 Albuterol Aerosols [Ventolin Aerosols] 2.5 mg INHALATION Q2H PRN PRN vial.neb. 03/19/18 Furosemide [Lasix] 40 mg PO DAILY tablet 03/19/18 Guaifenesin [Mucinex] 1,200 mg PO BID 5 Days tablet 03/19/18 Ipratropium/Albuterol Sulfate [Duoneb] 3 ml INHALATION Q4H.RT ampul.neb Ranolazine [Ranexa] 500 mg PO BID tablet 03/19/18 levoFLOXacin tablet [Levaquin tablet] 750 mg PO Q48@0600 #2 tablet 03/19/18 Nebulizer [Lc Plus] 1 [facility] UD #1 ea 03/20/18 The following prescriptions were given: Nebulizer [Lc Plus] 1 ea [facility] UD #1 ea Primary Care Physician: Link Soriano MD [Primary Care Provider] - Please follow up with your Primary Care Physician in: Follow-up within 3-5 days to review admit. Please Follow Up With: Robbie Jernigan MD When: Follow-up within 1-2 weeks, may see CRANE OPERATOR. Please Follow Up With: Billy Galeana DO When: Follow-up within 1-2 weeks, may see CRANE OPERATOR. Please Follow Up With: Amalia Palafox DO When: Follow-up for TOM on CKD to establish, within 1 week preferred. Proposed Discharge Date: 03/20/18
--- NOTE | 2018-03-20 14:41 | PCM.DC.SUM ---
Discharge Date and Diagnosis - Problem List Patient Problems: Active and Suspected Problems Hypertensive emergency (Acute) Date of Admission: 03/16/18 Date of Discharge: 03/20/18 - Primary Discharge Diagnosis Active and Suspected Problems (1) Acute Hypoxic Respiratory Failure secondary to HCAP Pneumonia, Possible GN Organism (2) Acute on Chronic Systolic CHF w/ Ischemic Cardiomyopathy secondary to Transient Pulmonary Edema secondary to Hypertensive Emergency, Resolved Quickly in the ED and contributed to #1 (3) Acute kidney injury, Secondary to presentation #1 on CKD stage III (4) NSTEMI, Likely secondary to #1, #2 (5) Encephalopathy, Multifactorial, secondary to #1, #2, #3, #4 (6) Hypertensive Emergency (7) CAD (8) Diabetes mellitus type II (9) Hyperlipidemia (10) Chronic Fe Deficiency Anemia, Hx PUD w/ GI bleed (11) Alzheimer's Dementia with unclear behavioral disturbance (12) Carotid Disease (13) GERD (14) MAGDI: Continue w/ bilevel therapy with a pressure setting of 15/11 cm of water with humidification per Pulmonary recommendation. (15) CODE status: DNR-CCA, no intubation status. - Secondary Discharge Diagnosis Chronic Problems Iron deficiency anemia (Chronic) Chronic kidney disease (Chronic) Alzheimer's disease (Chronic) Diabetes mellitus (Chronic) Ischemic cardiomyopathy (Chronic) EF is 40% Uncontrolled type 2 diabetes mellitus (Chronic) Coronary artery disease (Chronic) Peptic ulcer disease (Chronic) H/O carotid endarterectomy (Chronic) August 2017 [facility] Chronic hemorrhagic anemia (Chronic) Stage III chronic kidney disease (Chronic) Esophageal reflux (Chronic) HLD (hyperlipidemia) (Chronic) HTN (hypertension) (Chronic) Coronary artery disease (Chronic) status post CABG H/O coronary artery bypass surgery (Chronic) Obstructive sleep apnea (Chronic) Noncompliant with CPAP CVA (cerebral vascular accident) (Chronic) BPH (benign prostatic hypertrophy) (Chronic) History of PTCA (Chronic) last PTCA was in July 2016 at [facility] Hospital Course and Treatment Dr. Jernigan Cardiology Dr. Galeana ICU/Pulmonary Operations: None Procedures: 2-D Echocardiogram, EKG, - - BIPAP in the ICU. Summary of Care Provided: The patient is a 72 y/o M w/ PMHx: Fe Deficiency Anemia, Hx GI Bleed w/ PUD, CKD stage III, Diabetes mellitus type II, Obesity, MAGDI non-compliant with CPAP, CAD s/p CABG and PCI (last 2015 [facility]) and AK, Chronic systolic CHF w/ Ischemic Cardiomyopathy (EF 40%), HTN, HLD, Alzheimer's disease, Carotid disease s/p CEA hx, BPH who presented to the [facility] ED on 03/16/18 with acutely worsened respiratory distress starting ~ 2 hours prior to presentation, noted to have awoken him from sleep with 74% oxygenation noted per EMS, with 2 day history of dyspnea, cough. CXR in the ED w/ interval development consolidative process right upper lobe, right lower lobe and left lower lobe. Admission CBC w/ WBC 11.8 with left shift-->03/20/18 CBC w/ WBC 6.6, remained afebrile. Admitted to the ICU initially, maintained on BIPAP initially with transition to NC currently, transitioned 03/17/18 to PCU without issue, continued ATC duonebs, PRN albuterol, initially treated w/ IV Zosyn and Vancomycin, negative MRSA swab-->IV zosyn only with 03/18/18 with transition to q48 hour oral levaquin regimen only with planned total 7 day course abx therapy (complete regimen 03/22/18). Unable to obtain sputum cx, negative urine antigens, negative respiratory viral panel. Bld cx x 2 obtained in the ED with NGTD. Oxygenation testing performed prior to discharge with noted oxygenation on room air 93% at rest, decrease to 82% on RA with exertion and improvement to 92% on 3L NC supplementation. Will plan continuation upon discharge of aerosols with duoneb, PRN albuterol given patient status and severity of HCAP presentation with de-escalation per Dr. Galeana upon re-evaluation if appropriate. Patient additionally treated for Acute on Chronic Systolic CHF w/ Ischemic Cardiomyopathy secondary to Transient Pulmonary Edema secondary to Hypertensive Emergency, Resolved Quickly. Upon ED evaluation initially given improvement w/ BIPAP and dose IV lasix in the ED as felt possibly decompensated at that point; however, CXR was not marked congested and patient again noted no recent weight gain, edema, orthopnea complaints w/ concurrent infiltrative process. Had held lasix upon admission secondary to TOM, improved w/ addition back of regimen; however, 03/19/18 secondary to again Cr increase, decreased oral lasix to 40 mg daily. Repeat ECHO pending given just > 6 months since last w/ normal LV size, EF 40%, moderate segmental systolic dysfunction, transmitral diastolic flow velocities suggestive of moderate stage II diastolic dysfunction, moderate MV insufficiency, mild TV insufficiency, compared to prior study no significant change. Continued asa, plavix, statin, BB, not on ACEI with CKD, added back lasix as noted w/ decreased dose on 03/19/18 per discussion with treatment team, improved renal function 03/20/18 with requested repeat BMP at PCP follow-up or with Nephrology with referral placed upon discharge to assure close follow-up given CKD worsening and labile noted over the last several months-year. During admission patient w/ Acute kidney injury Secondary to acute presentation as noted. Admission BUN/Cr 66/2.61, prior baseline creatinine noted to be 1.9-2.2. Gently hydrated given CHF history, held nephrotoxic medications as able, 03/17/18 BUN/Cr 53/2.06, improved. 03/18/18 oral lasix 40 mg BID restarted; however, repeat BMP w/ BUN/Cr 66/2.57-->03/19/18 BUN/Cr 66/2.70, thus lasix decreased to 40 mg per day per discussion with treatment team, but has been waxing and waning. 03/20/18 BUN/Cr 67/2.58 with planned repeat BMP with PCP versus Nephrology. While admitted patient w/ concurrent NSTEMI, secondary to CHF exacerbation and HCAP with respiratory failure as noted with EKG in ED without acute evidence of ischemia w/ ST mild depression V5-V6, CXR w/ bilateral infiltrates as noted, initial trop 0.11-->1.11-->2.39-->2.92, discussed w/ Dr. Jernigan, Cardiology who followed w/ upon troponin rise, lovenox therapeutic x 1 administered with noted preference to avoid heparin drip initially and eventually transitioned back to SC heparin only. Recent cardiac catheterization ~ 6 months prior, patient declined repeat catheterization and deferred any further invasive therapies thus continued w/ aggressive medical therapy with asa, plavix, BB, statin, per Cardiology recommendation added ranexa 500 mg BID. Per pulmonary with MAGDI history, recommendation continuation w/ bilevel therapy with a pressure setting of 15/11 cm of water with humidification. Attempted transition to SNF; however, insurance denied and medical policy specialist also denied thus patient discharged to Assisted Living w/ home health (RN, sharron) with planned completion abx therapy, aerosols, medication adjustments and additions as noted, follow-up with PCP, Cardiology, Pulmonary and Nephrology. Discharge Activity: - - Avoid aggressive activity until re-evaluation per Pulmonary and Cardiology. May resume sexual activity in: 10-14 days Weight Bearing Status: Weight bearing as tolerated Call your doctor if you observe: Fever of 101 or Higher, Inability to urinate, Inability to have a bowel movement, Shortness of breath, Dizziness, Fainting spells, Chest pain, Uncontrolled pain Home Medications: Medications to take at Discharge Amlodipine Besylate [Norvasc] 5 mg PO DAILY 03/16/18 Aspirin [Aspirin, Baby] 81 mg PO DAILY@0800 03/16/18 Atorvastatin Calcium [Lipitor] 40 mg PO QHS 03/16/18 Carvedilol [Coreg] 6.25 mg PO BID 03/16/18 Clopidogrel Bisulfate [Clopidogrel] 75 mg PO DAILY 03/16/18 Donepezil HCl [Aricept] 5 mg PO QHS 03/16/18 Insulin Detemir [Levemir] 40 unit SQ BID 03/16/18 Iron Polysaccharide Complex [Ferrex 150] 150 mg PO TIDCM 03/16/18 Isosorbide Mononitrate [Isosorbide Mononitrate ER] 30 mg PO DAILY 03/16/18 Magnesium Oxide [Mag-Ox 400] 400 mg PO DAILY 03/16/18 Nitroglycerin [Nitrostat] 0.4 mg SUBLINGUAL Q5M PRN 03/16/18 [place]-3 Acid Ethyl Esters 2 cap PO BID 03/16/18 Pantoprazole Sodium [Protonix] 40 mg PO DAILY 03/16/18 Polyethylene Glycol 3350 [Miralax] 17 gm PO DAILY 03/16/18 Senna/Docusate Sodium [Senokot-S] 1 tablet PO BID 03/16/18 Albuterol Aerosols [Ventolin Aerosols] 2.5 mg INHALATION Q2H PRN PRN vial.neb. 03/19/18 Furosemide [Lasix] 40 mg PO DAILY tablet 03/19/18 Guaifenesin [Mucinex] 1,200 mg PO BID 5 Days tablet 03/19/18 Ipratropium/Albuterol Sulfate [Duoneb] 3 ml INHALATION Q4H.RT ampul.neb 03/19/18 Ranolazine [Ranexa] 500 mg PO BID tablet 03/19/18 levoFLOXacin tablet [Levaquin tablet] 750 mg PO Q48@0600 #2 tablet 03/19/18 Nebulizer [Lc Plus] 1 [facility] UD #1 ea 03/20/18 Following Prescrptions Were Given to Patient: Nebulizer [Lc Plus] 1 [facility] #1 ea Primary Care Physician: Link Soriano MD [Primary Care Provider] - Please follow up with your Primary Care Physician in: Follow-up within 3-5 days to review admit. Please Follow Up With: Robbie Jernigan MD When: Follow-up within 1-2 weeks, may see CUSTOMER ENGAGEMENT MANAGER. Please Follow Up With: Billy Galeana DO When: Follow-up within 1-2 weeks, may see CUSTOMER ENGAGEMENT MANAGER. Please Follow Up With: Amalia Palafox DO When: Follow-up for TOM on CKD to establish, within 1 week preferred. Patient Instructions: Heart Failure: Warning Signs of a Flare-Up, Heart Failure: Tracking Your Weight, Using Oxygen Safely, What Is Pneumonia?, Using Oxygen at Home, Preventing Pneumonia, Pneumonia Treatment, Taking Medications for Your Heart, Common Heart Medications, Discharge Instructions for Heart Failure Disposition: [facility] - with home health set-up, therapies set-up. Minutes spent on discharge:: 40 Patient Condition:: Fair Medical Necessity - Tobacco Use Smoking Status: Former smoker Tobacco Use: Non-smoker Meaningful Use Info Meaningful Use Diagnoses (Choose all that apply): AMI, CHF - AMI Aspirin given w/in 24hrs of arrival?: Yes ASA at discharge?: Yes Statins at discharge?: Yes Simone/ARB at discharge?: No Reason Simone/ARB not ordered:: Worsening renal disease Beta Kurt at discharge?: Yes Done w/ Acute AK measure.: Yes - CHF SIMONE/ARB ordered at discharge?: No Reason SIMONE/ARB not ordered?: Worsening renal disease Documented LVEF (%): 40 Code Visit Inpatient E&M: 36333 Disch Hosp
--- NOTE | 2018-03-20 14:51 | DS.PCM_ITS ---
Discharge Date and Diagnosis - Problem List Patient Problems: Active and Suspected Problems Hypertensive emergency (Acute) Date of Admission: 03/16/18 Date of Discharge: 03/20/18 - Primary Discharge Diagnosis Active and Suspected Problems (1) Acute Hypoxic Respiratory Failure secondary to HCAP Pneumonia, Possible GN Organism (2) Acute on Chronic Systolic CHF w/ Ischemic Cardiomyopathy secondary to Transient Pulmonary Edema secondary to Hypertensive Emergency, Resolved Quickly in the ED and contributed to #1 (3) Acute kidney injury, Secondary to presentation #1 on CKD stage III (4) NSTEMI, Likely secondary to #1, #2 (5) Encephalopathy, Multifactorial, secondary to #1, #2, #3, #4 (6) Hypertensive Emergency (7) CAD (8) Diabetes mellitus type II (9) Hyperlipidemia (10) Chronic Fe Deficiency Anemia, Hx PUD w/ GI bleed (11) Alzheimer's Dementia with unclear behavioral disturbance (12) Carotid Disease (13) GERD (14) MAGDI: Continue w/ bilevel therapy with a pressure setting of 15/11 cm of water with humidification per Pulmonary recommendation. (15) CODE status: DNR-CCA, no intubation status. - Secondary Discharge Diagnosis Chronic Problems Iron deficiency anemia (Chronic) Chronic kidney disease (Chronic) Alzheimer's disease (Chronic) Diabetes mellitus (Chronic) Ischemic cardiomyopathy (Chronic) EF is 40% Uncontrolled type 2 diabetes mellitus (Chronic) Coronary artery disease (Chronic) Peptic ulcer disease (Chronic) H/O carotid endarterectomy (Chronic) August 2017 [facility] Chronic hemorrhagic anemia (Chronic) Stage III chronic kidney disease (Chronic) Esophageal reflux (Chronic) HLD (hyperlipidemia) (Chronic) HTN (hypertension) (Chronic) Coronary artery disease (Chronic) status post CABG H/O coronary artery bypass surgery (Chronic) Obstructive sleep apnea (Chronic) Noncompliant with CPAP CVA (cerebral vascular accident) (Chronic) BPH (benign prostatic hypertrophy) (Chronic) History of PTCA (Chronic) last PTCA was in July 2016 at [facility] Hospital Course and Treatment Dr. Jernigan Cardiology Dr. Galeana ICU/Pulmonary Operations: None Procedures: 2-D Echocardiogram, EKG, - - BIPAP in the ICU. Summary of Care Provided: The patient is a 72 y/o M w/ PMHx: Fe Deficiency Anemia, Hx GI Bleed w/ PUD, CKD stage III, Diabetes mellitus type II, Obesity, MAGDI non-compliant with CPAP, CAD s/p CABG and PCI (last 2015 [facility]) and ND, Chronic systolic CHF w/ Ischemic Cardiomyopathy (EF 40%), HTN, HLD, Alzheimer's disease, Carotid disease s/p CEA hx, BPH who presented to the [facility] ED on 03/16/18 with acutely worsened respiratory distress starting ~ 2 hours prior to presentation, noted to have awoken him from sleep with 74% oxygenation noted per EMS, with 2 day history of dyspnea, cough. CXR in the ED w/ interval development consolidative process right upper lobe, right lower lobe and left lower lobe. Admission CBC w / WBC 11.8 with left shift-->03/20/18 CBC w/ WBC 6.6, remained afebrile. Admitted to the ICU initially, maintained on BIPAP initially with transition to NC currently, transitioned 03/17/18 to PCU without issue, continued ATC duonebs, PRN albuterol, initially treated w/ IV Zosyn and Vancomycin, negative MRSA swab- ->IV zosyn only with 03/18/18 with transition to q48 hour oral levaquin regimen only with planned total 7 day course abx therapy (complete regimen 03/22/18). Unable to obtain sputum cx, negative urine antigens, negative respiratory viral panel. Bld cx x 2 obtained in the ED with NGTD. Oxygenation testing performed prior to discharge with noted oxygenation on room air 93% at rest, decrease to 82% on RA with exertion and improvement to 92% on 3L NC supplementation. Will plan continuation upon discharge of aerosols with duoneb, PRN albuterol given patient status and severity of HCAP presentation with de-escalation per Dr. Galeana upon re-evaluation if appropriate. Patient additionally treated for Acute on Chronic Systolic CHF w/ Ischemic Cardiomyopathy secondary to Transient Pulmonary Edema secondary to Hypertensive Emergency, Resolved Quickly. Upon ED evaluation initially given improvement w/ BIPAP and dose IV lasix in the ED as felt possibly decompensated at that point; however, CXR was not marked congested and patient again noted no recent weight gain, edema, orthopnea complaints w/ concurrent infiltrative process. Had held lasix upon admission secondary to TOM, improved w/ addition back of regimen; however, 03/19/18 secondary to again Cr increase, decreased oral lasix to 40 mg daily. Repeat ECHO pending given just > 6 months since last w/ normal LV size, EF 40%, moderate segmental systolic dysfunction, transmitral diastolic flow velocities suggestive of moderate stage II diastolic dysfunction, moderate MV insufficiency , mild TV insufficiency, compared to prior study no significant change. Continued asa, plavix, statin, BB, not on ACEI with CKD, added back lasix as noted w/ decreased dose on 03/19/18 per discussion with treatment team, improved renal function 03/20/18 with requested repeat BMP at PCP follow-up or with Nephrology with referral placed upon discharge to assure close follow-up given CKD worsening and labile noted over the last several months-year. During admission patient w/ Acute kidney injury Secondary to acute presentation as noted. Admission BUN/Cr 66/2.61, prior baseline creatinine noted to be 1.9-2.2. Gently hydrated given CHF history, held nephrotoxic medications as able, BUN/Cr 53/2.06, improved. 03/18/18 oral lasix 40 mg BID restarted; however, repeat BMP w/ BUN/Cr 66/2.57-->03/19/18 BUN/Cr 66/2.70, thus lasix decreased to 40 mg per day per discussion with treatment team, but has been waxing and waning. 03/20/18 BUN/Cr 67/2.58 with planned repeat BMP with PCP versus Nephrology. While admitted patient w/ concurrent NSTEMI, secondary to CHF exacerbation and HCAP with respiratory failure as noted with EKG in ED without acute evidence of ischemia w/ ST mild depression V5-V6, CXR w/ bilateral infiltrates as noted, initial trop 0.11-->1.11-->2.39-->2.92, discussed w/ Dr. Jernigan, Cardiology who followed w/ upon troponin rise, lovenox therapeutic x 1 administered with noted preference to avoid heparin drip initially and eventually transitioned back to SC heparin only. Recent cardiac catheterization ~ 6 months prior, patient declined repeat catheterization and deferred any further invasive therapies thus continued w/ aggressive medical therapy with asa , plavix, BB, statin, per Cardiology recommendation added ranexa 500 mg BID. Per pulmonary with MAGDI history, recommendation continuation w/ bilevel therapy with a pressure setting of 15/11 cm of water with humidification. Attempted transition to SNF; however, insurance denied and medical support assistant also denied thus patient discharged to Assisted Living w/ home health (RN, sharron) with planned completion abx therapy, aerosols, medication adjustments and additions as noted, follow-up with PCP, Cardiology, Pulmonary and Nephrology. Discharge Activity: - - Avoid aggressive activity until re-evaluation per Pulmonary and Cardiology. May resume sexual activity in: 10-14 days Weight Bearing Status: Weight bearing as tolerated Call your doctor if you observe: Fever of 101 or Higher, Inability to urinate, Inability to have a bowel movement, Shortness of breath, Dizziness, Fainting spells, Chest pain, Uncontrolled pain Home Medications: Medications to take at Discharge Amlodipine Besylate [Norvasc] 5 mg PO DAILY 03/16/18 Aspirin [Aspirin, Baby] 81 mg PO DAILY@0800 03/16/18 Atorvastatin Calcium [Lipitor] 40 mg PO QHS 03/16/18 Carvedilol [Coreg] 6.25 mg PO BID 03/16/18 Clopidogrel Bisulfate [Clopidogrel] 75 mg PO DAILY 03/16/18 Donepezil HCl [Aricept] 5 mg PO QHS 03/16/18 Insulin Detemir [Levemir] 40 unit SQ BID 03/16/18 Iron Polysaccharide Complex [Ferrex 150] 150 mg PO TIDCM 03/16/18 Isosorbide Mononitrate [Isosorbide Mononitrate ER] 30 mg PO DAILY 03/16/18 Magnesium Oxide [Mag-Ox 400] 400 mg PO DAILY 03/16/18 Nitroglycerin [Nitrostat] 0.4 mg SUBLINGUAL Q5M PRN 03/16/18 Flint-3 Acid Ethyl Esters 2 cap PO BID 03/16/18 Pantoprazole Sodium [Protonix] 40 mg PO DAILY 03/16/18 Polyethylene Glycol 3350 [Miralax] 17 gm PO DAILY 03/16/18 Senna/Docusate Sodium [Senokot-S] 1 tablet PO BID 03/16/18 Albuterol Aerosols [Ventolin Aerosols] 2.5 mg INHALATION Q2H PRN PRN vial.neb. 03/19/18 Furosemide [Lasix] 40 mg PO DAILY tablet 03/19/18 Guaifenesin [Mucinex] 1,200 mg PO BID 5 Days tablet 03/19/18 Ipratropium/Albuterol Sulfate [Duoneb] 3 ml INHALATION Q4H.RT ampul.neb Ranolazine [Ranexa] 500 mg PO BID tablet 03/19/18 levoFLOXacin tablet [Levaquin tablet] 750 mg PO Q48@0600 #2 tablet 03/19/18 Nebulizer [Lc Plus] 1 [facility] UD #1 ea 03/20/18 Following Prescrptions Were Given to Patient: Nebulizer [Lc Plus] 1 [facility] #1 ea Primary Care Physician: Link Soriano MD [Primary Care Provider] - Please follow up with your Primary Care Physician in: Follow-up within 3-5 days to review admit. Please Follow Up With: Robbie Jrenigan MD When: Follow-up within 1-2 weeks, may see GEAR DESIGN ENGINEER. Please Follow Up With: Billy Galeana DO When: Follow-up within 1-2 weeks, may see GEAR DESIGN ENGINEER. Please Follow Up With: Amalia Palafox DO When: Follow-up for TOM on CKD to establish, within 1 week preferred. Patient Instructions: Heart Failure: Warning Signs of a Flare-Up, Heart Failure : Tracking Your Weight, Using Oxygen Safely, What Is Pneumonia?, Using Oxygen at Home, Preventing Pneumonia, Pneumonia Treatment, Taking Medications for Your Heart, Common Heart Medications, Discharge Instructions for Heart Failure Disposition: Asstd Living/Non-Skill NH - with home health set-up, therapies set- up. Minutes spent on discharge:: 40 Patient Condition:: Fair Medical Necessity - Tobacco Use Smoking Status: Former smoker Tobacco Use: Non-smoker Meaningful Use Info Meaningful Use Diagnoses (Choose all that apply): AMI, CHF - AMI Aspirin given w/in 24hrs of arrival?: Yes ASA at discharge?: Yes Statins at discharge?: Yes Simone/ARB at discharge?: No Reason Simone/ARB not ordered:: Worsening renal disease Beta Kurt at discharge?: Yes Done w/ Acute ND measure.: Yes - CHF SIMONE/ARB ordered at discharge?: No Reason SIMONE/ARB not ordered?: Worsening renal disease Documented LVEF (%): 40 Code Visit Inpatient E&M: 54504 Disch Hosp
--- NOTE | 2018-03-20 15:05 | CASEMGMT ---
Addendum entered by Gloria Cross 03/20/18 16:43: See SW note, [facility] states they will now take pt back to [place] on trial basis. [facility] delivered tank to pt at this time and states they will be awaiting pt call when he gets back to set up at home for oxygen and nebulizer. Pt updated on all by ASHLEY and is awaiting family to pick him up. Maura SILVA CM Original Note: Pt was denied by insurance to go to SNF at this time and will need to return to [facility] [place]. Per nursing and Dr. Minor, pt will need to go home on oxygen and with a nebulizer. Pt states no preference on DME at this time. Pt states has done nebulizer treatments for grandsons in the past. Call to Lily at [facility] and referral faxed to [facility] at this time. Ralph SW on the phone with pt's assisted living at this time and they are stating that they cannot take pt back to assisted living side at this time d/t the continuous home oxygen. They state that pt will have to go to their skilled side as private pay. This SHIRA FERNANDEZ also spoke with Jessica at [facility] [place] and she states they don't have an RN over on the [place] side 24hours and that they have never done continuous home oxygen in their [place] before. She states that pt will have to go to skilled side private pay and if necessary, they will help assist pt with Medicaid application. Maura SILVA CM
--- NOTE | 2018-03-20 15:31 | CASEMGMT ---
Addendum entered by Gloria Dennis 03/20/18 15:53: ASHLEY faxed discharge summary, discharge instructions, medication list, and home health care order to Jessica at [facility]. Original Note: Social Work Note ASHLEY received call from Jessica at [facility] stating that they are willing to take pt back on [place] side and monitor how he does with his oxygen. Jessica states that if needed she will allow pt to go to their long term side if pt is unable to handle his oxygen on his own on the [place] side and that pt will still be listed under the [place] side. ASHLEY informed Jessica that [employer] will be setting up pt's oxygen and it will be a concentrator and tank that pt is able to carry. Pt will call [facility] when he arrives at [facility] and [employer] will come to [facility] to set pt up with his oxygen and teach pt how to use it. ASHLEY informed Jessica that pt's insurance has set his long term, PT/OT order to medical review and [facility] will have to wait to hear back from insurance if they will be able to complete evaluation and or [facility]. Per VIKRAM Mai previous notes, pt son will be coming to get pt and transporting him to [facility]. Plan: Return to [facility] assisted living Gloria Dennis REAL ESTATE OFFICE SUPERVISOR, LARGE ENGINE ASSEMBLER
--- NOTE | 2018-03-20 16:23 | NURSING ---
report called to [facility] jim herring
== END 2018-03-20 17:15 | disposition home or self-care (01) | DRG 177 ==
LOC: ED 06:55 → ICU 08:18 → PCU 03-17 15:52 → ICU 03-17 15:52 → PCU 03-18 07:05
PROVIDERS: Admitting Provider Family Medicine; Emergency Provider Emergency Medicine; Family Provider Family Medicine; PCP Family Medicine; Visit Provider Family Medicine
DX: J15.6 Pneumonia due to other Gram-negative bacteria (principal); J96.01 Acute respiratory failure with hypoxia; I21.A1 Myocardial infarction type 2; I50.23 Acute on chronic systolic (congestive) heart failure; I50.31 Acute diastolic (congestive) heart failure; G93.40 Encephalopathy, unspecified; I13.0 Hypertensive heart and chronic kidney disease with heart failure and stage 1 through stage 4 chronic kidney disease, or unspecified chronic kidney disease; N17.9 Acute kidney failure, unspecified; Z87.891 Personal history of nicotine dependence; I25.10 Atherosclerotic heart disease of native coronary artery without angina pectoris; E11.22 Type 2 diabetes mellitus with diabetic chronic kidney disease; N18.3 Chronic kidney disease, stage 3 (moderate); Z86.73 Personal history of transient ischemic attack (TIA), and cerebral infarction without residual deficits; K21.9 Gastro-esophageal reflux disease without esophagitis; G30.9 Alzheimer's disease, unspecified; F02.80 Dementia in other diseases classified elsewhere, unspecified severity, without behavioral disturbance, psychotic disturbance, mood disturbance, and anxiety; I25.5 Ischemic cardiomyopathy; I25.2 Old myocardial infarction; Z95.1 Presence of aortocoronary bypass graft; Z95.5 Presence of coronary angioplasty implant and graft; E78.5 Hyperlipidemia, unspecified; D50.9 Iron deficiency anemia, unspecified; Y95 Nosocomial condition; G47.33 Obstructive sleep apnea (adult) (pediatric); N40.0 Benign prostatic hyperplasia without lower urinary tract symptoms; E66.9 Obesity, unspecified; Z91.19 Patient's noncompliance with other medical treatment and regimen; Z79.82 Long term (current) use of aspirin; Z79.4 Long term (current) use of insulin; Z79.899 Other long term (current) drug therapy; Z68.30 Body mass index [BMI] 30.0-30.9, adult; E87.6 Hypokalemia; Z66 Do not resuscitate
CPT/HCPCS: 36415; 71045; 80048; 82962; 83735; 83880; 84100; 84484; 85025; 85027; 87040; 87070; 87205; 87449; 87633; 87641; 93005; 93306; 94002; 94003; 94640; 94667; 94668; 97110; 97116; 97162; 97165; 97530; 97535; 99285; J7030; J7040; J7050; A4216; J1940